=== PATIENT | male | born 1955 | race African-American/Black ===

== ENCOUNTER 2022-08-27 07:13 | Observation (INO) ==
--- NOTE | 2022-08-20 14:21 | History & Physical Report ---
Date of Service August 20, 2022 Assessment & Plan (1) Osteoarthritis of right hip: Plan: PRE-OP Diagnosis: Right hip osteoarthritis Planned Procedure: Right total hip arthroplasty Plan: Patient is scheduled to undergo this procedure at the [facility] with a 23-hour observation admission with Dr. Arora on August. Risks and complications of the procedure such as: Infection, bleeding, pain, scarring, nerve blood vessel damage, weakness, wound problems, stiffness, incomplete relief of symptoms, hardware failure, hardware loosening, wear, fracture, tendon or ligament injury, dislocation, leg length inequality, blood clots, Embolism, heart attack, stroke and were explained to the patient at his visit today. Informed consent to perform the procedure was obtained. Patient also understands risks of proceeding with surgical intervention during the COVID-19 pandemic. Currently he is asymptomatic and understands that he has not been in contact with anyone positive for the virus recently. Patient did not have a PAT appointment. Apparently the medical staff at the alf was contacted and they performed a CBC with differential, complete metabolic panel, PT/INR, blood type and screen, urinalysis, urine culture and sensitivity, EKG, and a nasal culture for MRSA. Patient will also need preoperative medical clearance from their PCP at the institution. Patient states that he plans on doing inpatient therapy at [facility] for the first 1 to 2 weeks postoperatively. Patient states that there is a possibility that he may be able to do outpatient physical therapy in our clinic. Patient will need a walker, raised toilet seat, shower chair and a hip kit. By [facility]. During today's visit we reviewed the total hip packet as well as precautions. We discussed discharge planning from the hospital. I advised the patient that upon discharge from hospital we will prescribe a narcotic pain medication and anti-inflammatory. Patient will also be on an 81 mg aspirin twice daily for blood clot prevention. Patient will be scheduled for 2-week postoperative follow-up visit with he states that these will be provided. At that visit we will Provide the patient with an order for outpatient physical therapy and rehab protocol. Patient verbalizes understanding of all information provided during today's visit. He thanks for the care that he received. If he has questions or concerns that should arise prior to his surgery, he will have medical staff at [facility] contact our clinic. This chart was completed utilizing dragon dictation voice recognition software. Grammatical errors, random word insertions, pronoun errors, and in complete sentences are an occasional consequence of the system. Any questions or concerns about the content, text, or information contained within the body of this dictation should be addressed directly to the physician for clarification. History of Present Illness Chief Complaint: Chief Complaint: Right hip pain Primary Care Provider: [facility] History of Present Illness (including history relevant to procedure): This 67-year-old male inmate at [facility] presents to the clinic today for his preoperative history and physical. Patient complains of a 4-year history of persistent right hip pain that developed after playing basketball. Patient states that he did physical therapy which did not improve his symptoms. He noticed over the past year or so that he is walking slower and is no longer able to play any type of sporting activities. He would like to proceed with surgical intervention for a right total hip arthroplasty. Review Of Systems: A 12 point review of systems is performed and is unremarkable except for those things stated in the HPI and past medical history. Past Medical History: Problems: Right hip pain History of prostate cancer Procedure History Procedure Procedure Date Comments General surgery - foot bone spur Cancer General surgery - kidney stones Allergies and Sensitivities: NKA Current Home Meds: (Last Updated 08/18 14:22) brimonidine ophthalmic (Alphagan P 0.1% ophthalmic solution) dorzolamide-timolol ophthalmic (dorzolamide-timolol 2%-0.5% preservative-free ophthalmic solution) ibuprofen (IBU 600 mg oral tablet) latanoprost ophthalmic (latanoprost 0.005% ophthalmic emulsion) Store intact bottles under refrigeration. Once opened, the container may be stored at room temperature for 6 weeks. - N Arnie 05/22 13:42 Initial Wt: 08/18 89.8 kg 198 lb Allergies Allergy/AdvReac Type Severity Reaction Status Date / Time No Known Allergies Allergy Verified 08/19/22 13:49 Home Medications Medication Instructions Recorded Confirmed Type brimonidine 0.1 % eye drops 1 drp ophthalmic (eye) BID 08/19/22 08/19/22 History (Alphagan P) dorzolamide 22.3 mg-timolol 6.8 1 drp ophthalmic (eye) BID 08/19/22 08/19/22 History mg/mL eye drops (Cosopt) ibuprofen 600 mg tablet 600 mg PO TID 08/19/22 08/19/22 History latanoprost 0.005 % eye drops 1 drp ophthalmic (eye) DAILY 08/19/22 08/19/22 History Past Med/Surg History Medical History Arthritis Constipation Eczema Glaucoma (increased eye pressure) HCV (hepatitis C virus) Inguinal hernia Prostate cancer no other details listed Surgical History No history of previous surgery none listed on SCI record Social History Smoking Status: Unknown if ever smoked Preferred Language: Unknown Web Analytics Developer Required: No Beliefs That Will Affect Care: Cultural Cultural Beliefs: unknown Review of Systems All systems reviewed & are unremarkable except as noted in Subjective Physical Exam Physical Exam: Physical Exam: (relevant to the procedure, including heart and lung evaluation) General: Alert and oriented x3 with proper grooming and hygiene Eyes: Pupils are equal react light with accommodation. Extraocular movements are intact Throat: Posterior oropharynx clear with absence of edema, erythema or exudate Cardiac: Regular rate and rhythm with no murmurs or gallops appreciated Lungs: Clear to auscultation throughout with no wheezing, rales or rhonchi Abdomen: Nonobese, nondistended, nontender with NABS Extremities: Right hip flexion is limited to about 85 degrees. Internal rotation 0 degrees external rotation 40 degrees. Logroll test causes pain. Straight leg raise test causes pain to the groin. Patient has tenderness to palpation in the groin area. He has pain with active AB and adduction of the hip. He is neurovascular intact. Neuro: Cranial nerves II through XII are intact. No motor or sensory deficit Skin: Normal in appearance with no open skin areas or discharge Results & Data Diagnostic Findings Studies (relevant to the procedure): XR done today, AP pelvis and 2 views of right hip: official read by Dr. Arora: severe osteoarthritis of right hip with large subchondral cysts and erosion of the acetabulum. R leg shorter than left.
--- NOTE | 2022-08-25 10:31 | Anesthesiology Consultation ---
Date of Service August 25, 2022 Assessment & Plan (1) Encounter for pre-operative examination: Plan - COVID screening: Per director of occupational therapy on 08/19/2022: Inmate at [facility]. Guo ordered for am DOS. - Outpatient joint assessment: Patient is currently scheduled for inpatient pathway. If re-evaluated pending system levels during current pandemic/surgeon requests outpatient pathway, patient is not recommended candidate for outpatient joint program from anesthesia standpoint. Chart Review Chart Review: Acceptable Risk for Surgery and Patient NOT seen in Pre Admission Testing History Surgery Operation Date: 08/27/22 09:00 Proposed Procedures p Right Total Hip Arthroplasty - Wally Arora MD Height/Weight Height: 5 ft 9 in Weight: 90.265 kg Allergies Allergy/AdvReac Type Severity Reaction Status Date / Time No Known Allergies Allergy Verified 08/19/22 13:49 Medications Home Medications Medication Instructions Recorded Confirmed Last Taken brimonidine 0.1 % eye drops 1 drp ophthalmic (eye) BID 08/19/22 08/19/22 Unknown (Alphagan P) dorzolamide 22.3 mg-timolol 6.8 1 drp ophthalmic (eye) BID 08/19/22 08/19/22 Unknown mg/mL eye drops (Cosopt) ibuprofen 600 mg tablet 600 mg PO TID 08/19/22 08/19/22 Unknown latanoprost 0.005 % eye drops 1 drp ophthalmic (eye) DAILY 08/19/22 08/19/22 Unknown Past Medical History Medical History Arthritis Constipation Eczema Glaucoma (increased eye pressure) HCV (hepatitis C virus) Inguinal hernia Prostate cancer no other details listed Past Surgical History Surgical History No history of previous surgery none listed on SCI record Social History Smoking Status: Unknown if ever smoked Testing Laboratory Results 08/19/2022 WBC: 4.8 H/H: 14/44 PLATELETS: 243 SODIUM: 141 POTASSIUM: 4 CHLORIDE: 107 CO2: 24 BUN: 21 CREATININE: 1.1 GLUCOSE: 99 Urine culture: #1 K. aerogenes 4+, #2 beta hemolytic streptococcus group G: surgeon's office made aware of abnormal urine culture. Electrocardiogram Date: 08/19/22 NSR, rate 67 bpm Chest X-Ray Date: 08/19/22 No radiographic evidence of acute cardiopulmonary disease
[~2022-08-27 07:13] MED LIST: ACETAMINOPHEN 500 MG TAB PO SCH; BUPIVACAINE 0.5 % 5 MG/1 ML PF 10ML VIAL ONE; CeleBREX 200 MG CAP PO SCH; FAMOTIDINE 20 MG TAB PO SCH; LR 500ML BOLUS, THEN 15ML/HR IV SCH; LR 60ML/HR IV SCH; ROPIVACAINE 0.5% HCL/PF 150 MG, BUPIVACAINE 0.75% MPF 20 ML, EPINEPHrine 0.15 MG, Ketor... INFIL SCH; Scopolamine 1 MG TDSY TD SCH; TRANEXAMIC ACID 1,000 MG **IV Intra-op IV SCH; TRANEXAMIC ACID 1,000 MG **IV Pre-op IV SCH; ceFAZolin 2000MG 2,000 MG/15 ML SYR IV SCH; dexAMETHasone 4 MG TAB PO SCH; traMADol HCL 50 MG TABLET PO SCH
[2022-08-27] MEDS ORDERED: MIDAZOLAM HCL 1 MG/ML 2ML VIAL ONE ×2 (07:39→07:40)
[2022-08-27] MEDS ORDERED: KETAMINE 50 MG/5 ML SYRINGE ONE (07:40)
[2022-08-27] MEDS ORDERED: LIDOCAINE 2% 2 ML VIAL/AMP(20MG/ML) INFIL ONE (08:07)
[2022-08-27] MEDS ORDERED: ONDANSETRON INJ 2 MG/ML 2 ML VIAL ONE (08:07)
[2022-08-27] MEDS ORDERED: PROPOFOL IV EMULSION 10 MG/ML 100 ML VIAL IV ONE (08:07)
[2022-08-27] MEDS ORDERED: GLYCOPYRROLATE 0.2 MG/ML VIAL ONE (08:07)
--- NOTE | 2022-08-27 08:38 | History & Physical Bridge Note ---
Date of Service August 27, 2022 History & Physical Bridge Note I have examined the patient, reviewed the History & Physical and in the interval since the performance of the History & Physical I have noted the following changes of clinical significance: no changes noted
[2022-08-27] MEDS ORDERED: ORTHO JOINT ANESTHETIC ONE (08:53)
[2022-08-27] MEDS ORDERED: fentaNYL citrate PF 100 MCG/2 ML VIAL ONE (09:26)
[2022-08-27] MEDS ORDERED: ROCURONIUM BROMIDE 10 MG/ML 5 ML VIAL IV ONE (09:37)
[2022-08-27] MEDS ORDERED: DEXAMETHASONE SOD INJ 4 MG/ML VIAL ONE (09:37)
[2022-08-27] MEDS ORDERED: PROPOFOL IV EMULSION 10 MG/ML 20 ML VIAL IV ONE (09:37)
[2022-08-27] MEDS ORDERED: ePHEDrine sulfate 50 MG/ML AMP ONE (09:45)
[2022-08-27] MEDS ORDERED: PHENYLEPHRINE HCL 10 MG/ML VIAL ONE (09:45)
[2022-08-27] MEDS ORDERED: SODIUM CHLORIDE 0.9% PF INJ 10 ML VIAL ONE (09:48)
[2022-08-27] MEDS ORDERED: SUGAMMADEX SODIUM 200 MG/2 ML VIAL IV ONE (09:59)
[2022-08-27] MEDS ORDERED: ceFAZolin 2000MG 2,000 MG/15 ML SYR IV ONE (11:00)
[2022-08-27] MEDS ORDERED: ceFAZolin 330 MG/ML 1 GM VIAL ONE (11:06)
--- NOTE | 2022-08-27 11:54 | Operative Report ---
Post Operative Report Pre & Post Diagnosis Operation Date: 08/27/22 08:50 Pre-Op Diagnosis: Right Hip Osteoarthritis Post-Op Diagnosis: Right Hip Osteoarthritis I identified the patient and participated in the time-out.: Yes Procedure Operation Date: 08/27/22 08:50 Actual Procedures p Right Total Hip Arthroplasty-Uncemented - Wally Arora MD Surgeon JAYCEE Arora MD Medical Technologist Generalist Karen Xiao PA-C Estimated Blood Loss 500 Findings Consistent with Post-Op Diagnosis see operative report Specimens see operative report Drains none Complications none Disposition Accompanied Patient To Recovery: Yes Indications This 67 year old male presented to the office with complaints of persisting right hip pain. He had tried conservative care measures without improvement. He elected to proceed with surgical intervention after being educated about potential risks and outcomes. Preoperative imaging was obtained. Description of Procedure The patient was taken to the operating room where he was given general anesthesia. He was prepped and draped in the usual sterile fashion. Please see Dr. Arora's operative report for specifics of the procedure. I was present for the entire case from initial patient positioning through final wound closure. Assistance was provided in tissue retraction, hemostasis, trial implant placement, final implant placement, and final wound closure. The patient was taken to the recovery room in satisfactory condition. I attest to the content of the Intraoperative Record and any orders documented therein. Any exceptions are noted below.
[2022-08-27] MEDS ORDERED: FLUMAZENIL 0.1 MG/1 ML 10 ML VIAL IV PRN (11:59)
[2022-08-27] MEDS ORDERED: LABETALOL HCL IV 5 MG/ML 20ML IV PRN (11:59)
[2022-08-27] MEDS ORDERED: ONDANSETRON INJ 2 MG/ML 2 ML VIAL IV PRN ×2 (11:59→13:12)
[2022-08-27] MEDS ORDERED: fentaNYL citrate PF 100 MCG/2 ML VIAL IV PRN (11:59)
[2022-08-27] MEDS ORDERED: HYDROmorphone INJ 1 MG/ML SYRINGE IV PRN (11:59)
[2022-08-27] MEDS ORDERED: ATROPINE SULFATE 0.1 MG/ML 10ML SYR IV PRN (11:59)
[2022-08-27] MEDS ORDERED: NALOXONE HCL 0.4 MG/1 ML VIAL/CARP IV PRN ×2 (11:59→13:12)
[2022-08-27] MEDS ORDERED: ePHEDrine sulfate 50 MG/ML AMP IV PRN (11:59)
[2022-08-27] MEDS ORDERED: PROMETHAZINE HCL 12.5 MG in SODIUM CHLORIDE 0.9% 50 ML IV PRN (11:59)
--- NOTE | 2022-08-27 12:06 | Operative Report ---
Post Operative Report Pre & Post Diagnosis Operation Date: 08/27/22 08:50 Pre-Op Diagnosis: Right Hip Osteoarthritis with severe acetabular erosion Post-Op Diagnosis: Right Hip Osteoarthritis with severe acetabular erosion I identified the patient and participated in the time-out.: Yes Procedure Operation Date: 08/27/22 08:50 Actual Procedures 1. Right Total Hip Arthroplasty-Uncemented. A 22 modifier should be added to this case due to the increased time and difficulty as a result of the patient's complex anatomy of severe acetabular erosion. 2. Right acetabulum bone grafting - Wally Arora MD Surgeon Wally Arora MD Professor Of Environmental Studies Terry Xiao PA-C. No resident or fellow was available to assist. Estimated Blood Loss 500 Findings Consistent with Post-Op Diagnosis Specimens Right femoral head Anesthesia Type Spinal MAC Complications none Disposition Disposition: Recovery Room Indications 67-year-old male, inmate for over 25 years, has had longstanding right hip pain refractory to conservative management. 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 Severe subchondr al sclerosis as well as subchondral cyst were also noted. I had a long discussion with the patient about the risks and benefits of surgery, alternatives to surgery, and expected outcomes. After reviewing all these elected to proceed with surgery. All questions were answered. Informed consent was signed. Description of Procedure Patient was identified in the preoperative holding area where his surgical site was marked. Anesthesia attempted a spinal but was unable to place this. He was therefore brought back to the main operating room, moved onto the operating room table, and general anesthesia was administered. He was carefully moved in the lateral decubitus position. Axillary roll was placed. All bony prominences were padded. Leg lengths were checked and he was approximately 5 mm shorter on the right compared with the left. He was then prepped and draped in the usual sterile fashion. Prior to incision a multidisciplinary timeout was called. All in the room were in agreement. I began by making a 18 cm long incision for a posterior approach to the hip. Subcutaneous tissues were dissected down to the level of fascia. Fascia was incised in line with the incision. Great care was taken to ensure that the sciatic nerve was identified and the Charnley retractors were placed away from the nerve onto the gluteus cheng. The upper 1 cm of the gluteal sling was released to facilitate visualization. Next, the trochanteric bursa was reflected posteriorly to expose the piriformis, short external rotators and quadratus femoris. Next, a quadratus femoris was reflected subperiosteally off the femur. The piriformis and short external rotators were reflected posteriorly off the capsule. We did get into some bleeding here with the branch of the medial femoral circumflex artery. Aqua Jaqui and Bovie electrocautery were used to obtain hemostasis. A box cut was then made in the capsule and the posterior capsule was reflected posteriorly to expose the hip joint and acetabulum. Because of his abnormal anatomy I was unable to dislocate his hip at this time, as the femoral head was significantly covered by acetabular osteophytes. Therefore, an osteotome was used to remove approximately 5 mm of the acetabular rim posteriorly and superiorly. Superior and inferior capsular releases were also undertaken. Once this was completed I was able to dislocate the hip. We measured the center of the femoral head to the lesser trochanter and it was approximately 50 millimeters. Femoral neck cut was then made at the planned level approximately 10 mm above the lesser trochanter. Femoral head was noted to be severely deformed and was passed off the field and sent for permanent section. Next, the acetabular retractors were placed. He had severe acetabular erosion with multiple subchondral cysts. Additional acetabular rim osteophytes were removed in order to allow the reamers to sit down into the acetabulum. We then began to ream the acetabulum. This was done extremely gently so as to not breach the medial wall of the acetabulum. We went carefully up by 1 mm increments with minimal pressure on the reamers. Our preoperative template was for a 58 mm cup and this reamer gave us nice bleeding bone. Subchondral cysts were curetted with a curved curette. On the back table, bone marrow from the femoral head had been scooped out into a specimen cup. We irrigated out the acetabulum and then placed this bone graft in the medial aspect of the acetabulum because of the x-ray findings of a protrusio type hip. Once the bone graft was in place it was impacted with a spherical impactor. The 58 mm cup was then placed in approximately 40 degrees of lateral opening, and 20 degrees of anteversion. 2 screws were then placed measuring 30 and 20 mm in length respectively. Trial acetabular liner was then placed. Additional acetabular osteophytes were then removed using an osteotome. Next, we turned our attention towards the femur. Our preoperative template was for a size 5 femur. Lateral neck capsule was removed and the cookSelatra cutter was used to remove the lateral neck. Intramedullary guide was used followed by the lateralizing reamer. We then reamed him up to a size 5. I then broached him up to a size 5 femur. This gave us excellent torsional stability. We then attempted to reduce the hip. With a standard offset neck, and +1.5 offset femoral head we were unable to reduce the hip. I could feel his capsule which remained tight inferiorly and anteriorly. Therefore, the femoral broach was removed, the acetabulum was reexposed, and additional capsular releases were undertaken inferiorly and anteriorly. Once this was complete the femur was reexposed. The size 5 broach was placed, and the +1.5 head was retrialed. It was a little bit difficult to reduce the hip but we are able to get it reduced. I was very happy with his leg lengths which were symmetric. He was stable in extension and external rotation. hip flexion was easily to 115 degrees. At 90 degrees of hip flexion he could be internally rotated 60 degrees before levering out of the cup. I was very happy with the stability exam. Therefore, the femoral trial was removed. The acetabulum was reexposed. Trial acetabular liner was removed and the cup was irrigated out. An apex hole eliminator was placed in the central hole. A Ultrex polyethylene liner for 36 mm femoral head, neutral was then placed. After being impacted into position we checked the locking Mazyck and is a minute had engaged appropriately. Next we turned our attention back to the femur. The femoral canal was irrigated out and dried. A size 5 standard offset [place] stem was then impacted into the femur. It sat at the same level as the broach. Therefore, the +1.5 offset 36 mm diameter ceramic femoral head was opened up and gently impacted onto the trunnion. The hip was atraumatically reduced. dilute Betadine irrigation was allowed to sit in the wound for approximately 3 minutes. This was then irrigated out with copious amounts normal saline. A mixture of ropivacaine, epinephrine, and ketorolac was then injected into the subcutaneous tissues and deep hip capsular tissues, taking great care to try to keep the medicine away from the nerve. we then began to close. Number 2 Vicryl sutures were used to repair the posterior capsule through drill holes in the posterior aspect the greater trochanter. I felt that there was too much tension on the piriformis and short external rotators so these were not included in the repair. The fascia was then run with a looped #1 PDS. Subcutaneous layer was closed with running #1 PDS. Skin was closed in the deep dermis using a 2-0 Vicryl suture. Zip line and Dermabond was used for the skin. Sterile dressing was applied of Silverlon followed by compressive dressing. Patient was then carefully moved supine, awoken from anesthesia and transferred recovery room in stable condition. Postoperative course: Patient will be admitted to the hospital overnight for pain control and monitoring. He will be weightbearing as tolerated with posterior hip precautions. Aspirin for DVT prophylaxis. I attest to the content of the Intraoperative Record and any orders documented therein. Any exceptions are noted below.
[2022-08-27 12:38] LABS: Hematocrit (blood only) 35.3 % (42.0-52.0); Hemoglobin 12.8 g/dl (14.0-18.0)
--- NOTE | 2022-08-27 12:40 | XRay Report ---
XR pelvis 1-2V routine CLINICAL HISTORY: In PACU - Post Surgical TECHNIQUE: A single frontal view of the pelvis was obtained. Comparison: Comparison is made to pelvis radiograph 08/18/2022 FINDINGS: Patient is status post total hip arthroplasty with expected postsurgical changes including soft tissu e swelling, and subcutaneous emphysema. No periarticular lucency or hardware fracture is seen. IMPRESSION: Expected postoperative appearance status post placement of total hip arthroplasty. ACT 112: Negative or not required by law. Electronically signed by: Benitez Dennison M.D. 08/27/2022 12:38 PM
--- NOTE | 2022-08-27 12:49 | Anesthesiology Progress Note ---
Date of Service August 27, 2022 Anesthesia Post Procedure Vital Signs Vital Signs: Temp Pulse Pulse Resp BP Pulse Ox O2 Del Method 08/27/22 12:40 36.3 C L 65 14 123/77 100 Room Air 08/27/22 12:30 68 14 112/68 100 Room Air 08/27/22 12:20 68 14 98/63 L 98 Oxymask 08/27/22 12:10 65 18 90/65 L 100 Oxymask 08/27/22 12:00 71 16 102/74 100 Oxymask 08/27/22 11:50 36.0 C L 68 20 110/72 100 Oxymask 08/27/22 07:45 Room Air 08/27/22 07:45 36.6 C 66 18 133/96 99 Room Air O2 Flow Rate 08/27/22 12:40 08/27/22 12:30 08/27/22 12:20 4 08/27/22 12:10 4 08/27/22 12:00 4 08/27/22 11:50 4 08/27/22 07:45 08/27/22 07:45 Pain Intensity Right Hip: Pain Intensity: 7 Transfer of Care Handoff Completed per policy Notes Mental Status: alert / awake / arousable Patient Amnestic to Procedure: Yes Nausea / Vomiting: adequately controlled Pain: adequately controlled Airway Patency, RR, SpO2: stable & adequate BP & HR: stable & adequate Hydration State: stable & adequate Anesthetic Complications: no major complications apparent
[2022-08-27] MEDS ORDERED: MAGNESIUM HYDROXIDE SUSP 30 ML UDC PO PRN (13:12)
[2022-08-27] MEDS ORDERED: diphenhydrAMINE 50 MG/ML VIAL IV PRN (13:12)
[2022-08-27] MEDS ORDERED: METOCLOPRAMIDE HCL INJ 5 MG/ML 2 ML VIAL IV PRN (13:12)
[2022-08-27] MEDS ORDERED: HYDROmorphone INJ 0.5 MG/0.5 ML SYR IV PRN (13:12)
[2022-08-27] MEDS ORDERED: TAMSULOSIN HCL 0.4 MG CAP PO PRN (13:12)
[2022-08-27] MEDS ORDERED: bisacodyL 10 MG SUPP PR PRN (13:12)
[2022-08-27] MEDS ORDERED: oxyCODONE HCL IR 5 MG TAB (IMMEDIATE RELEASE) PO PRN (13:12)
[2022-08-27] MEDS ORDERED: ALUMINUM/MAGNESIUM SUSP 30 ML UDC PO PRN (13:12)
[2022-08-27] MEDS: SODIUM CHLORIDE 0.9% 1000ML 1,000 ML IV SCH (13:57)
[2022-08-27] MEDS: KETOROLAC TROMETHAMINE 15 MG/ML VIAL IV SCH ×2 (13:58→21:42)
[2022-08-27] MEDS: Scopolamine CHECK PATCH PLACEMENT SCH (15:34)
[2022-08-27] MEDS: ASCORBIC ACID 500 MG TAB PO SCH (16:27)
[2022-08-27] MEDS: FERROUS GLUCONATE 324 MG TAB PO SCH (16:27)
[2022-08-27] MEDS: ceFAZolin 2000MG 2,000 MG/15 ML SYR IV SCH (17:46)
[2022-08-27] MEDS ORDERED: SENNA 8.6 MG TAB PO SCH (21:00)
[2022-08-27] MEDS ORDERED: BRIMONIDINE 0.1% OP SCH (21:00)
[2022-08-27] MEDS ORDERED: LATANOPROST 0.005% OP SOLN 2.5 ML BTL OP SCH (21:00)
[2022-08-27] MEDS: DORZOLAMIDE/TIMOLOL 22.3/6.8MG/ML 10 ML BTL OP SCH (21:42)
[2022-08-27] MEDS: DOCUSATE SODIUM 100 MG CAP PO SCH (21:43)
[2022-08-27] MEDS: ACETAMINOPHEN 500 MG TAB PO SCH (21:43)
[2022-08-27] MEDS: ASPIRIN 81 MG ECTAB PO SCH (21:44)
[2022-08-28] MEDS: Scopolamine CHECK PATCH PLACEMENT SCH ×2 (00:11→08:04)
[2022-08-28] MEDS: KETOROLAC TROMETHAMINE 15 MG/ML VIAL IV SCH ×2 (02:29→08:03)
[2022-08-28] MEDS: ceFAZolin 2000MG 2,000 MG/15 ML SYR IV SCH (02:29)
[2022-08-28] MEDS: SODIUM CHLORIDE 0.9% 1000ML 1,000 ML IV SCH (05:49)
[2022-08-28] MEDS: ACETAMINOPHEN 500 MG TAB PO SCH (05:55)
[2022-08-28 07:59] LABS: Hematocrit (blood only) 34.9 % (42.0-52.0); Mean Corpuscular Hemoglobin 32.7 pg (25.0-34.0); Mean Corpuscular Hgb Conc 37.2 g/dL (32.0-36.0); Mean Corpuscular Volume 87.7 fL (80.0-100.0); Mean Platelet Volume 10.3 fL (9.4-12.4); Platelet Count 249 K/uL (130-400); RDW Coefficient of Variation 11.9 % (11.5-14.5); RDW Standard Deviation 38.2 fL (36.4-46.3); Red Blood Count 3.98 M/uL (4.70-6.10)
[2022-08-28] MEDS ORDERED: dexAMETHasone 4 MG TAB PO SCH (08:00)
[2022-08-28] MEDS: ASCORBIC ACID 500 MG TAB PO SCH (08:02)
[2022-08-28] MEDS: FERROUS GLUCONATE 324 MG TAB PO SCH (08:03)
[2022-08-28] MEDS: DOCUSATE SODIUM 100 MG CAP PO SCH (08:04)
[2022-08-28] MEDS: DORZOLAMIDE/TIMOLOL 22.3/6.8MG/ML 10 ML BTL OP SCH (08:04)
[2022-08-28] MEDS: ASPIRIN 81 MG ECTAB PO SCH (08:04)
[2022-08-28 08:13] LABS: BUN Creatinine Ratio 20.2 (10-20); Calcium 9.2 mg/dl (8.6-10.3); Creatinine Clr Calc Pharmacy 66.8 ml/min; Est GFR (African American) 72.3 ml/min; Est GFR (Non-African American) 62.4 ml/min; Potassium 4.3 mmol/L (3.5-5.1)
[2022-08-28 08:44] LABS: Basophils # (auto) 0.02 K/uL (0-0.2); Basophils % (auto) 0.1 %; Immature Granulocytes # (auto) 0.49 K/uL (0.01-0.20); Immature Granulocytes % (auto) 2.6 %; Lymphocytes # (auto) 1.73 K/uL (1.2-3.4); Lymphocytes % (auto) 9.3 %; Monocytes # (auto) 1.93 K/uL (0.11-0.59); Monocytes % (auto) 10.3 %; Neutrophils # (auto) 14.51 K/uL (1.40-6.50); Neutrophils % (auto) 77.7 %
[2022-08-28] MEDS ORDERED: MULTIVITAMIN TAB PO SCH (09:00)
--- NOTE | 2022-08-28 09:01 | Orthopedic Progress Note ---
Date of Service August 28, 2022 Assessment & Plan (1) S/P total right hip arthroplasty: Plan: Patient is doing well status post right total hip arthroplasty postop day 1. Patient is not having any pain at this time he has not been given narcotics and is doing well. At this time I am recommending patient transition back [facility]. He is aware of maintaining hip precautions and is able to verbalize these, no bending past 90 degrees, no internal rotation, and no crossing legs. He is aware this is to help prevent hip dislocation. He has a hip abduction pillow that must be used between legs when sleeping. He was advised as well as the halfway on these hip precautions. He was provided a order for a rolling walker to use with ambulating. He was shown exercises to do by physical therapy he should do these daily and if physical therapy is available to participate in therapy while maintaining hip precautions. An order was also provided for a raised toilet seat to help maintain hip precautions. Patient is not permitted to have a slaughterer religious ritual in halfway due to safety concerns. I did advise Edyta at [facility] that he will need assistance with applying NARCISA hose, socks or sneakers and with dressing. Patient's pain is controlled advised Edyta at [facility] to continue with Tylenol and we recommend using diclofenac 75 mg twice daily x30 days for pain as well as to prevent hypertrophic bone formation. Patient will be on an aspirin 81 mg twice daily x30 days for DVT prophylaxis. He is also to wear NARCISA hose for 4 weeks. He may take the NARCISA hose off at night to sleep. His dressing is clean and should stay in place if it starts to lift they can reinforce this. If it becomes soiled they should call the office at [phone]. This should stay in place until he is seen. He may shower not to soak the dressing but may get it wet. Caution while in shower to prevent fall. He will need to to return to the office for suture removal instructions were [facility] to [facility]. They will call to get the appointment scheduled. If any concerns such as fever, chills, night sweats, drainage or redness from the incision site or surrounding or any falls they are to contact the office at [phone]. Patient is not aware of a follow-up appointment he is aware that they will call to arrange something in the near future. Admission and Anticipated Discharge Date Admission Date: August 27, 2022 Subjective Patient is a 67-year-old male who is postop day #1 status post a right total hip arthroplasty with Dr. Conroy. He is seen in his room this morning approximately 830 OT and 2 halfway guards were present. He is sitting upright in bedside chair. He is pleasant and conversive. He is alert and oriented x3. He reports he did well throughout the night and has no pain. He states he feels pretty good. He is able to verbalize his hip precautions. He offers no concerns about being transition [facility]. He denies any fever, chills, chest pain, dizziness, shortness of breath, or calf pain. Review of Systems Review of Systems: Please refer to HPI Physical Exam Physical Exam: General: Patient is sitting in bedside chair alert and oriented x3 no acute distress conversive. Integumentary/musculoskeletal: Dressing is intact negative for soiling. Outer dressing was removed. Silver[place] is in place no soiling present negative for edema or erythema surrounding this area. No fluctuance or induration present surrounding the incision or dressing. He has very little to no edema in the right lower extremity. Patient is able to tolerate standing at walker and is able to lift knee on the right side for hip flexion without discomfort. Patient returned to seated position. He is able to do a short arc quad. He is able to dorsiflex and plantarflex the ankle. His calf is soft and nontender. Negative Homans' sign. Dorsal pedis pulses 2. And he tolerates gentle internal and external range of motion of the right hip.Right lower extremity sensation is intact and is neurovascularly intact Results & Data Vital Signs (Past 12 Hours) Vital Signs Temp Pulse Resp BP Pulse Ox O2 Del Method 08/28/22 06:45 36.8 C 71 16 134/85 98 Room Air 08/28/22 03:36 36.6 C 68 16 121/74 98 Room Air 08/27/22 23:01 36.9 C 75 16 125/79 100 Room Air Laboratory Results 08/28/22 08/28/22 08/27/22 Range/Units 07:12 07:12 15:25 WBC 18.50 H (4.8-10.8) K/ul RBC 3.98 L (4.70-6.10) M/uL Hgb 13.0 L (14.0-18.0) g/dl Hct 34.9 L (42.0-52.0) % MCV 87.7 (80.0-100.0) fL MCH 32.7 (25.0-34.0) pg MCHC 37.2 H (32.0-36.0) g/dL RDW Std Deviation 38.2 (36.4-46.3) fL RDW Coeff of Pablo 11.9 (11.5-14.5) % Plt Count 249 (130-400) K/uL MPV 10.3 (9.4-12.4) fL Immature Gran % (Auto) 2.6 % Neut % (Auto) 77.7 % Lymph % (Auto) 9.3 % Pe[place]uel[place] % (Auto) 10.3 % Eos % (Auto) 0.0 % Baso % (Auto) 0.1 % Neut # (Auto) 14.51 H (1.40-6.50) K/uL Lymph # (Auto) 1.73 (1.2-3.4) K/uL Peñuelas # (Auto) 1.93 H (0.11-0.59) K/uL Eos # (Auto) 0.00 (0-0.50) K/uL Baso # (Auto) 0.02 (0-0.2) K/uL Immature Gran # (Auto) 0.49 H (0.01-0.20) K/uL Sodium 134 L (136-145) mmol/L Potassium 4.3 (3.5-5.1) mmol/L Chloride 105 (98-107) mmol/L Carbon Dioxide 24 (21-32) mmol/L Anion Gap 5 (3-11) BUN 24 H (6-23) mg/dl Creatinine 1.19 (0.6-1.4) mg/dl Est Cr Clr Drug Dosing 66.8 ml/min Est GFR ( Amer) 72.3 ml/min Est GFR (Non-Af Amer) 62.4 ml/min BUN/Creatinine Ratio 20.2 H (10-20) Glucose 121 H (70-99(Fasting)) mg/dl Calcium 9.2 (8.6-10.3) mg/dl Nasal Screen MRSA (PCR) Negative (Negative) 08/27/22 Range/Units 12:07 WBC (4.8-10.8) K/ul RBC (4.70-6.10) M/uL Hgb 12.8 L (14.0-18.0) g/dl Hct 35.3 L (42.0-52.0) % MCV (80.0-100.0) fL MCH (25.0-34.0) pg MCHC (32.0-36.0) g/dL RDW Std Deviation (36.4-46.3) fL RDW Coeff of Pablo (11.5-14.5) % Plt Count (130-400) K/uL MPV (9.4-12.4) fL Immature Gran % (Auto) % Neut % (Auto) % Lymph % (Auto) % [place] % (Auto) % Eos % (Auto) % Baso % (Auto) % Neut # (Auto) (1.40-6.50) K/uL Lymph # (Auto) (1.2-3.4) K/uL [place]uel[place] # (Auto) (0.11-0.59) K/uL Eos # (Auto) (0-0.50) K/uL Baso # (Auto) (0-0.2) K/uL Immature Gran # (Auto) (0.01-0.20) K/uL Sodium (136-145) mmol/L Potassium (3.5-5.1) mmol/L Chloride (98-107) mmol/L Carbon Dioxide (21-32) mmol/L Anion Gap (3-11) BUN (6-23) mg/dl Creatinine (0.6-1.4) mg/dl Est Cr Clr Drug Dosing ml/min Est GFR ( Amer) ml/min Est GFR (Non-Af Amer) ml/min BUN/Creatinine Ratio (10-20) Glucose (70-99(Fasting)) mg/dl Calcium (8.6-10.3) mg/dl Nasal Screen MRSA (PCR) (Negative) Diagnostic Findings Pelvis X-Ray 08/27/22 12:00 XR pelvis 1-2V routine CLINICAL HISTORY: In PACU - Post Surgical TECHNIQUE: A single frontal view of the pelvis was obtained. Comparison: Comparison is made to pelvis radiograph 08/18/2022 FINDINGS: Patient is status post total hip arthroplasty with expected postsurgical changes including soft tissue swelling, and subcutaneous emphysema. No periarticular lucency or hardware fracture is seen. IMPRESSION: Expected postoperative appearance status post placement of total hip arthroplasty. ACT 112: Negative or not required by law. Electronically signed by: Benitez Dennison M.D. 08/27/2022 12:38 PM
--- NOTE | 2022-08-28 09:16 | Discharge Summary ---
Date of Service August 28, 2022 Admission HPI Per Admitting Provider History of Present Illness (including history relevant to procedure): This 67-year-old male inmate at [facility] presents to the clinic today for his preoperative history and physical. Patient complains of a 4-year history of persistent right hip pain that developed after playing basketball. Patient states that he did physical therapy which did not improve his symptoms. He noticed over the past year or so that he is walking slower and is no longer able to play any type of sporting activities. He would like to proceed with surgical intervention for a right total hip arthroplasty. Review Of Systems: A 12 point review of systems is performed and is unremarkable except for those things stated in the HPI and past medical history. Past Medical History: Problems: Right hip pain History of prostate cancer Procedure History Procedure Procedure Date Comments General surgery - foot bone spur Cancer General surgery - kidney stones Allergies and Sensitivities: NKA Current Home Meds: (Last Updated 08/18 14:22) brimonidine ophthalmic (Alphagan P 0.1% ophthalmic solution) dorzolamide-timolol ophthalmic (dorzolamide-timolol 2%-0.5% preservative-free ophthalmic solution) ibuprofen (IBU 600 mg oral tablet) latanoprost ophthalmic (latanoprost 0.005% ophthalmic emulsion) Store intact bottles under refrigeration. Once opened, the container may be stored at room temperature for 6 weeks. - N Arnie 05/22 13:42 Initial Wt: 08/18 89.8 kg 198 lb Allergies Allergy/AdvReac Type Severity Reaction Status Date / Time No Known Allergies Allergy Verified 08/19/22 13:49 Home Medications Medication Instructions Recorded Confirmed Type brimonidine 0.1 % eye drops 1 drp ophthalmic (eye) BID 08/19/22 08/19/22 History (Alphagan P) dorzolamide 22.3 mg-timolol 6.8 1 drp ophthalmic (eye) BID 08/19/22 08/19/22 History mg/mL eye drops (Cosopt) ibuprofen 600 mg tablet 600 mg PO TID 08/19/22 08/19/22 History latanoprost 0.005 % eye drops 1 drp ophthalmic (eye) DAILY 08/19/22 08/19/22 History Past Med/Surg History Medical History Arthritis Constipation Eczema Glaucoma (increased eye pressure) HCV (hepatitis C virus) Inguinal hernia Prostate cancer no other details listed Surgical History No history of previous surgery none listed on SCI record Social History Smoking Status: Unknown if ever smoked Preferred Language: Unknown Zipper Cutter Required: No Beliefs That Will Affect Care: Cultural Cultural Beliefs: unknown Review of Systems All systems reviewed & are unremarkable except as noted in Subjective Physical Exam Physical Exam: Physical Exam: (relevant to the procedure, including heart and lung evaluation) General: Alert and oriented x3 with proper grooming and hygiene Eyes: Pupils are equal react light with accommodation. Extraocular movements are intact Throat: Posterior oropharynx clear with absence of edema, erythema or exudate Cardiac: Regular rate and rhythm with no murmurs or gallops appreciated Lungs: Clear to auscultation throughout with no wheezing, rales or rhonchi Abdomen: Nonobese, nondistended, nontender with NABS Extremities: Right hip flexion is limited to about 85 degrees. Internal rotation 0 degrees external rotation 40 degrees. Logroll test causes pain. Straight leg raise test causes pain to the groin. Patient has tenderness to palpation in the groin area. He has pain with active AB and adduction of the hi p. He is neurovascular intact. Neuro: Cranial nerves II through XII are intact. No motor or sensory deficit Skin: Normal in appearance with no open skin areas or discharge Results & Data Diagnostic Findings Studies (relevant to the procedure): XR done today, AP pelvis and 2 views of right hip: official read by Dr. Arora: severe osteoarthritis of right hip with large subchondral cysts and erosion of the acetabulum. R leg shorter than left. Admission Exam (Per Admitting) Constitutional Physical Exam Physical Exam: Physical Exam: (relevant to the procedure, including heart and lung evaluation) General: Alert and oriented x3 with proper grooming and hygiene Eyes: Pupils are equal react light with accommodation. Extraocular movements are intact Throat: Posterior oropharynx clear with absence of edema, erythema or exudate Cardiac: Regular rate and rhythm with no murmurs or gallops appreciated Lungs: Clear to auscultation throughout with no wheezing, rales or rhonchi Abdomen: Nonobese, nondistended, nontender with NABS Extremities: Right hip flexion is limited to about 85 degrees. Internal rotation 0 degrees external rotation 40 degrees. Logroll test causes pain. Straight leg raise test causes pain to the groin. Patient has tenderness to palpation in the groin area. He has pain with active AB and adduction of the hip. He is neurovascular intact. Neuro: Cranial nerves II through XII are intact. No motor or sensory deficit Skin: Normal in appearance with no open skin areas or discharge Specialty Data Orthopedic 08/28/22 08/28/22 08/27/22 Range/Units 07:12 07:12 15:25 WBC 18.50 H (4.8-10.8) K/ul RBC 3.98 L (4.70-6.10) M/uL Hgb 13.0 L (14.0-18.0) g/dl Hct 34.9 L (42.0-52.0) % MCV 87.7 (80.0-100.0) fL MCH 32.7 (25.0-34.0) pg MCHC 37.2 H (32.0-36.0) g/dL RDW Std Deviation 38.2 (36.4-46.3) fL RDW Coeff of Pablo 11.9 (11.5-14.5) % Plt Count 249 (130-400) K/uL MPV 10.3 (9.4-12.4) fL Immature Gran % (Auto) 2.6 % Neut % (Auto) 77.7 % Lymph % (Auto) 9.3 % Scott % (Auto) 10.3 % Eos % (Auto) 0.0 % Baso % (Auto) 0.1 % Neut # (Auto) 14.51 H (1.40-6.50) K/uL Lymph # (Auto) 1.73 (1.2-3.4) K/uL Scott # (Auto) 1.93 H (0.11-0.59) K/uL Eos # (Auto) 0.00 (0-0.50) K/uL Baso # (Auto) 0.02 (0-0.2) K/uL Immature Gran # (Auto) 0.49 H (0.01-0.20) K/uL Sodium 134 L (136-145) mmol/L Potassium 4.3 (3.5-5.1) mmol/L Chloride 105 (98-107) mmol/L Carbon Dioxide 24 (21-32) mmol/L Anion Gap 5 (3-11) BUN 24 H (6-23) mg/dl Creatinine 1.19 (0.6-1.4) mg/dl Est Cr Clr Drug Dosing 66.8 ml/min Est GFR ( Amer) 72.3 ml/min Est GFR (Non-Af Amer) 62.4 ml/min BUN/Creatinine Ratio 20.2 H (10-20) Glucose 121 H (70-99(Fasting)) mg/dl Calcium 9.2 (8.6-10.3) mg/dl Nasal Screen MRSA (PCR) Negative (Negative) 08/27/22 Range/Units 12:07 WBC (4.8-10.8) K/ul RBC (4.70-6.10) M/uL Hgb 12.8 L (14.0-18.0) g/dl Hct 35.3 L (42.0-52.0) % MCV (80.0-100.0) fL MCH (25.0-34.0) pg MCHC (32.0-36.0) g/dL RDW Std Deviation (36.4-46.3) fL RDW Coeff of Pablo (11.5-14.5) % Plt Count (130-400) K/uL MPV (9.4-12.4) fL Immature Gran % (Auto) % Neut % (Auto) % Lymph % (Auto) % Scott % (Auto) % Eos % (Auto) % Baso % (Auto) % Neut # (Auto) (1.40-6.50) K/uL Lymph # (Auto) (1.2-3.4) K/uL Scott # (Auto) (0.11-0.59) K/uL Eos # (Auto) (0-0.50) K/uL Baso # (Auto) (0-0.2) K/uL Immature Gran # (Auto) (0.01-0.20) K/uL Sodium (136-145) mmol/L Potassium (3.5-5.1) mmol/L Chloride (98-107) mmol/L Carbon Dioxide (21-32) mmol/L Anion Gap (3-11) BUN (6-23) mg/dl Creatinine (0.6-1.4) mg/dl Est Cr Clr Drug Dosing ml/min Est GFR ( Amer) ml/min Est GFR (Non-Af Amer) ml/min BUN/Creatinine Ratio (10-20) Glucose (70-99(Fasting)) mg/dl Calcium (8.6-10.3) mg/dl Nasal Screen MRSA (PCR) (Negative) Pelvis X-Ray 08/27/22 12:00 XR pelvis 1-2V routine CLINICAL HISTORY: In PACU - Post Surgical TECHNIQUE: A single frontal view of the pelvis was obtained. Comparison: Comparison is made to pelvis radiograph 08/18/2022 FINDINGS: Patient is status post total hip arthroplasty with expected postsurgical changes including soft tissue swelling, and subcutaneous emphysema. No periarticular lucency or hardware fracture is seen. IMPRESSION: Expected postoperative appearance status post placement of total hip arthroplasty. ACT 112: Negative or not required by law. Electronically signed by: Benitez Dennison M.D. 08/27/2022 12:38 PM Current Inpatient Medications Acetaminophen (Acetaminophen 500 Mg Tab) 1,000 mg PO Q8 MARJORIE Stop: 09/26/22 21:59 Last Admin: 08/28/22 05:55 Dose: 1,000 mg Al Hydrox/Mg Hydrox/Simethicone (Aluminum/Magnesium Susp 30 Ml Udc) 15 ml PO Q4H PRN PRN Reason: Heartburn Stop: 09/26/22 13:11 Ascorbic Acid (Ascorbic Acid 500 Mg Tab) 500 mg PO BIDM MARJORIE Stop: 09/26/22 16:59 Last Admin: 08/28/22 08:02 Dose: 500 mg Aspirin (Aspirin 81 Mg Ectab) 81 mg PO BID MARJORIE Stop: 09/26/22 20:59 Last Admin: 08/28/22 08:04 Dose: 81 mg Bisacodyl (Bisacodyl 10 Mg Supp) 10 mg NM DAILY PRN PRN Reason: Constipation Stop: 09/26/22 13:11 Diphenhydramine HCl (Diphenhydramine 50 Mg/Ml Vial) 25 mg IV Q8H PRN PRN Reason: Itching Stop: 09/26/22 13:11 Docusate Sodium (Docusate Sodium 100 Mg Cap) 100 mg PO BID MARJORIE Stop: 09/26/22 20:59 Last Admin: 08/28/22 08:04 Dose: 100 mg Dorzolamide/Timolol (Dorzolamide/Timolol 22.3/6.8mg/Ml 10 Ml Btl) 1 drops OP BID MARJORIE Stop: 09/26/22 20:59 Last Admin: 08/28/22 08:04 Dose: 1 drops Ferrous Gluconate (Ferrous Gluconate 324 Mg Tab) 324 mg PO BIDM MARJORIE Stop: 09/26/22 16:59 Last Admin: 08/28/22 08:03 Dose: 324 mg Hydromorphone HCl (Hydromorphone Inj 0.5 Mg/0.5 Ml Syr) 0.5 mg IV Q2H PRN PRN Reason: Pain or Pre PT Stop: 09/10/22 13:11 Latanoprost (Latanoprost 0.005% Op Soln 2.5 Ml Btl) 1 drops OP HS MARJORIE Stop: 09/26/22 20:59 Last Admin: 08/27/22 22:32 Dose: 1 drops Magnesium Hydroxide (Magnesium Hydroxide Susp 30 Ml Udc) 30 ml PO Q6H PRN PRN Reason: Constipation Stop: 09/26/22 13:11 Metoclopramide HCl (Metoclopramide Hcl Inj 5 Mg/Ml 2 Ml Vial) 10 mg IV Q6H PRN PRN Reason: Nausea And Vomiting Stop: 09/26/22 13:11 Miscellaneous (Scopolamine Check Patch Placement) 1 each N/A QS MARJORIE Stop: 08/30/22 07:59 Last Admin: 08/28/22 08:04 Dose: Not Given Miscellaneous (Scopolamine Remove Transderm Patch) 1 each N/A ONE ONE Stop: 08/30/22 08:01 Miscellaneous (Brimonidine [Alphagan P] 0.1%: Order Awaiting Action) 1 each N/A QS MARJORIE Stop: 09/26/22 15:59 Last Admin: 08/28/22 08:02 Dose: Not Given Multivitamins (Multivitamin Tab) 1 tab PO QAM MARJORIE Stop: 09/27/22 08:59 Last Admin: 08/28/22 08:04 Dose: 1 tab Naloxone HCl (Naloxone Hcl 0.4 Mg/1 Ml Vial/Carp) 0.1 mg IV Q5M PRN PRN Reason: Oversedation/Resp Depression Stop: 09/26/22 13:11 Ondansetron HCl (Ondansetron Inj 2 Mg/Ml 2 Ml Vial) 4 mg IV Q6H PRN PRN Reason: Nausea And Vomiting Stop: 09/26/22 13:11 Oxycodone HCl (Oxycodone Hcl Ir 5 Mg Tab (Immediate Release)) 5 - 10 mg PO Q4H PRN PRN Reason: Pain or Pre PT Stop: 09/10/22 13:11 Sennosides (Senna 8.6 Mg Tab) 17.2 mg PO HS MARJORIE Stop: 09/26/22 20:59 Last Admin: 08/27/22 21:43 Dose: 17.2 mg Tamsulosin HCl (Tamsulosin Hcl 0.4 Mg Cap) 0.4 mg PO QAM PRN PRN Reason: UNABLE to void Stop: 09/26/22 13:11 Discharge Data Procedures Performed Operation Date: 08/27/22 08:50 Actual Procedures p Right Total Hip Arthroplasty-Uncemented - Wally Arora MD Hospital Course (1) S/P total right hip arthroplasty: Patient is doing well status post right total hip arthroplasty postop day 1. Patient is not having any pain at this time he has not been given narcotics and is doing well. At this time I am recommending patient [facility] He is aware of maintaining hip precautions and is able to verbalize these, no bending past 90 degrees, no internal rotation, and no crossing legs. He is aware this is to help prevent hip dislocation. He has a hip abduction pillow that must be used between legs when sleeping. He was advised as well as the snf on these hip precautions. He was provided a order for a rolling walker to use with ambulating. He was shown exercises to do by physical therapy he should do these daily and if physical therapy is available to participate in therapy while maintaining hip precautions. An order was also provided for a raised toilet seat to help maintain hip precautions. Patient is not permitted to have a field irrigation worker in snf due to safety concerns. I did advise Edyta at [place] that he will need assistance with applying NARCISA hose, socks or sneakers and with dressing. Patient's pain is controlled advised Edyta at [facility] to continue with Tylenol and we recommend using diclofenac 75 mg twice daily x30 days for pain as well as to prevent hypertrophic bone formation. Patient will be on an aspirin 81 mg twice daily x30 days for DVT prophylaxis. He is also to wear NARCISA hose for 4 weeks. He may take the NARCISA hose off at night to sleep. His dressing is clean and should stay in place if it starts to lift they can reinforce this. If it becomes soiled they should call the office at [phone]. This should stay in place until he is seen. He may shower not to soak the dressing but may get it wet. Caution while in shower to prevent fall. He will need to to return to the office for suture removal instructions [facility]. They will call to get the appointment scheduled. If any concerns such as fever, chills, night sweats, drainage or redness from the incision site or surrounding or any falls they are to contact the office at [phone]. Patient is not aware of a follow-up appointment he is aware that they will call to arrange something in the near future.
== END 2022-08-28 11:16 ==
LOC: 3E 07:13 → ASU 07:13
DX: M16.11 Unilateral primary osteoarthritis, right hip; M25.851 Other specified joint disorders, right hip; Z20.822 Contact with and (suspected) exposure to COVID-19; I10 Essential (primary) hypertension

== ENCOUNTER 2023-06-06 01:17 | Inpatient (IN) ==
[2023-06-06] MEDS: diphenhydrAMINE 50 MG/ML VIAL IV STA (02:12)
[2023-06-06] MEDS: SODIUM CHLORIDE 0.9% 1,000 ML IV SCH ×2 (02:12→09:09)
[2023-06-06 02:34] LABS: Basophils # (auto) 0.05 K/uL (0.00-0.20); Basophils % (auto) 0.4 %; Eosinophils # (auto) 0.39 K/uL (0.00-0.50); Eosinophils % (auto) 3.4 %; Hematocrit (blood only) 47.1 % (42.0-52.0); Hemoglobin 15.9 g/dl (14.0-18.0); Immature Granulocytes # (auto) 0.05 K/uL (0.01-0.20); Immature Granulocytes % (auto) 0.4 %; Lymphocytes # (auto) 3.35 K/uL (1.20-3.40); Lymphocytes % (auto) 29.3 %; Mean Corpuscular Hemoglobin 30.9 pg (25.0-34.0); Mean Corpuscular Hgb Conc 33.8 g/dL (32.0-36.0); Mean Corpuscular Volume 91.6 fL (80.0-100.0); Mean Platelet Volume 9.8 fL (9.4-12.4); Monocytes # (auto) 1.32 K/uL (0.11-0.59); Monocytes % (auto) 11.5 %; Neutrophils # (auto) 6.29 K/uL (1.40-6.50); Platelet Count 343 K/uL (130-400); RDW Coefficient of Variation 11.9 % (11.5-14.5); RDW Standard Deviation 40.3 fL (36.4-46.3); Red Blood Count 5.14 M/uL (4.70-6.10); White Blood Count 11.45 K/ul (4.8-10.8)
[2023-06-06 02:49] LABS: Alanine Aminotransferase 14 U/L (7-52); Albumin Globulin Ratio 1.1 (0.9-2); Albumin Level 3.8 gm/dl (3.4-5.0); Alkaline Phosphatase 104 U/L (34-104); Anion Gap 8 (3-11); BUN Creatinine Ratio 16.4 (10-20); Bilirubin,Total 0.5 mg/dl (0.2-1.0); Blood Urea Nitrogen 26 mg/dl (6-23); Calcium 8.8 mg/dl (8.6-10.3); Carbon Dioxide 27 mmol/L (21-32); Chloride 103 mmol/L (98-107); Creatinine Clr Calc Pharmacy 48.8 ml/min; Est GFR (African American) 50.6 ml/min; Est GFR (Non-African American) 43.6 ml/min; Globulin 3.6 gm/dl (2.5-4.0); Glucose 120 mg/dl (70-99(Fasting)); Lipase 4 U/L (11-82); Sodium 138 mmol/L (136-145); Total Protein 7.4 gm/dl (6.0-8.3)
--- NOTE | 2023-06-06 03:00 | Emergency Department Note ---
Impression & Plan Adverse reaction to drug, RAYMOND (acute kidney injury), Rash ED Provider Note ED Provider Note NAME: GLENROY [id number] AGE:68 SEX: Male : 1955 ARRIVES VIA: EMS INFORMANT: Patient ED PROVIDER(s): Sun Souza DO CHIEF COMPLAINT: Rash, reaction to medication HPI: This is a 68-year-old male presents emergency department from a local alf due to concern for worsening rash. Patient states she was seen here several days ago due to lower extremity swelling. He had a Doppler performed which was negative for blood clots. He states upon return to the alf he was kept in the [facility] where he was started on an antibiotic and a steroid in addition to a water pill. He states since starting these he began to develop a skin rash that has become more painful and is spreading and the areas of swelling and rash are now causing his skin to crack open. Patient states they did try to give him a cream but this did not help. He states no prior similar reactions in the past. No prior similar rash in the past. PAST MEDICAL HISTORY:See Below PAST SURGICAL HISTORY:See Below FAMILY HISTORY:See Below SOCIAL HISTORY:See Below HOME MEDICATIONS:See Below ALLERGIES:See Below VITALS:See Below PHYSICAL EXAMINATION: GENERAL: alert, well appearing, well nourished, no distress, non-toxic EYE EXAM: normal conjunctiva, PERRL and EOM's grossly intact OROPHARYNX: no exudate, no erythema, lips, buccal mucosa, and tongue normal and mucous membranes are moist, no mucocutaneous lesions NECK: supple, no nuchal rigidity, no adenopathy, non-tender LUNGS: Clear to auscultation. Normal chest wall mechanics, no w/r/r HEART: no murmurs, S1 normal and S2 normal ABDOMEN: abdomen soft, non-tender, normo-active bowel sounds, no masses, no rebound or guarding. SKIN: Scattered rash noted throughout body that appears maculopapular and erythematous with some places coalescing into larger patches, scattered areas of plaquing, no desquamation, right lower extremity with overlying rash now has breaks in skin with evolving surrounding erythema; worst areas of rash appear to be the extremities although there is truncal involvement of the rash additionally as well as the face/head and ears UPPER EXTREMITIES: upper extremities are grossly normal. FROM, nml pulses b/l. LOWER EXTREMITIES: Bilateral pitting edema, worse on right which is 3+. FROM, nml pulses b/l. RLE slightly warm to touch NEURO EXAM: Normal sensorium, cranial nerves II-XII grossly intact, normal speech, no facial droop,nogross weakness of arms, no gross weakness of legs. Gross sensation intact. No ataxia. Vital Signs: reviewed and remarkable Differential Diagnosis: Contact Dermatitis, Viral Exanthum, Urticaria, Allergic Reaction, SJS, Toxic Epidermal Necrolysis, Erythema Multiforme, Cellulitis, Scabies, HSV, Varicella, Zoster, Eczema, Staph Scalded Skin, Fungal, amongst other pathologies entertained. MEDICAL DECISION MAKING: This is a 68-year-old male presents emerged from due to concern for worsening rash and lower extremity edema. Patient with multiple recent antibiotics and medication changes. He was afebrile vital signs stable. No evidence of mucous membrane involvement, or respiratory distress. Labs drawn and sent, IV established, patient monitored on telemetry. He was given IV fluids additionally. I did call and discussed the case with the on-call RN at the [facility] he was able to provide additional timeline regarding his recent antibiotics and other medication changes. Based on this it seems as though patient began having a rash after he started taking Bactrim. While the Bactrim was stopped, the rash did not improve and patient continued on the other medications including Levaquin. It is still unclear what infection was being treated as both the patient and the [facility] nurse state he never had any redness or warmth to the lower extremity to otherwise more strongly suggest cellulitis. He did have a Doppler that was negative for DVT. Patient noted to have RAYMOND here, likely from recent Bactrim and Levaquin. Due to extensive rash, RAYMOND, and concern for worsening edema, case discussed with the hospitalist team for additional evaluation and management. At this time I do not suspect SJS or TEN. Consultation(s): 0313: Discussed with ANNA Ye in the [place] at the [facility]. Patient had been started on clindamycin this past week initially. Staff there was concern for possible cellulitis because of the right lower extremity edema. He was then sent in for evaluation here and had a negative Doppler. Upon returning to the present the nurse practitioner changed him to Bactrim. She states he was on Bactrim for 2 days, this was stopped on the . On the Levaquin was added additionally. She states he had also been on Lasix but that was stopped on the and spironolactone started. She states prednisone was added on the additionally. She states the rash never started until after the initiation of Bactrim however prior to that he had no clinical appearance of cellulitis on exam in her opinion. She states since being on these additional antibiotics he has had increased swelling and increased spread of the rash. 0356: Discussed with Dr. Dobbs, [facility] hospitalist, for additional evaluation and mgmt. ER Treatment Provided: See below Diagnostics Interpreted By Me: -Cardiac Monitoring: An order was placed for continuous cardiac monitoring. The monitor shows a rate of 88 with normal sinus rhythm. -Laboratory studies: As stated above and show below. Triage Nursing Note Reviewed Prior/Outside Records Reviewed -med list and records sent from alf Past Med/Surg History Medical History History of kidney stones Eczema Inguinal hernia HCV (hepatitis C virus) Prostate cancer no other details listed Constipation Arthritis Glaucoma (increased eye pressure) Surgical History Hx of hernia repair Social History Smoking Status: Former smoker Tobacco Type: Cigarettes Preferred Language: Citizen Of The [place] [employer] Required: No Beliefs That Will Affect Care: Cultural Cultural Beliefs: unknown Feels Safe at Home: Yes Allergies Allergies Allergy/AdvReac Type Severity Reaction Status Date / Time clindamycin Allergy Intermediate ON SCI Verified 06/06/23 01:55 [facility] sulfamethoxazole Allergy Intermediate Rash Verified 06/06/23 05:05 [From Bactrim] trimethoprim [From Bactrim] Allergy Intermediate Rash Verified 06/06/23 05:05 Home Meds Home Medications Medication Instructions Recorded Confirmed brimonidine 0.1 % eye drops 1 drp OPB BID 08/19/22 06/06/23 (Alphagan P) dorzolamide 22.3 mg-timolol 6.8 1 drp OPB BID 08/19/22 06/06/23 mg/mL eye drops (Cosopt) latanoprost 0.005 % eye drops 1 drp OPB HS 08/19/22 06/06/23 aspirin 81 mg tablet,delayed 81 mg PO BID 09/06/22 06/06/23 release hydroxyzine pamoate 25 mg capsule 25 mg PO TID PRN PRURITUS 06/06/23 06/06/23 levofloxacin 750 mg tablet 750 mg PO DAILY 06/06/23 06/06/23 miconazole nitrate 2 % topical 1 applic topical BID 06/06/23 06/06/23 cream prednisone 20 mg tablet 0 mg PO DAILY 06/06/23 06/06/23 spironolactone 25 mg tablet 25 mg PO BID 06/06/23 06/06/23 vitamin A and D 1 applic topical BID 06/06/23 06/06/23 Results & Data (ED) Vital Signs Vital Signs - 24 hr 06/06/23 01:24 06/06/23 01:52 06/06/23 02:16 Temperature 36.4 C L Temperature Source Temporal Artery Scan Pulse Rate 106 H 82 73 Pulse Rate [Apical] Pulse Rhythm [Apical] Pulse Strength [Apical] Respiratory Rate 18 16 Respiratory Effort / Characteristics Non-Labored Respiratory Depth Normal Respiratory Pattern Regular Blood Pressure 150/89 H Blood Pressure [Right Arm] Blood Pressure Mean 109 Blood Pressure Mean [Right Arm] Blood Pressure Position [Right Arm] Pulse Oximetry 99 98 Oxygen Delivery Method Room Air Sepsis Recent Fever Within 48 Hours No Sepsis New/Unexplained Change in Mental Status No Sepsis Action Taken by Nursing No Action Required 06/06/23 04:51 06/06/23 05:45 Temperature Temperature Source Pulse Rate 87 Pulse Rate [Apical] 79 Pulse Rhythm [Apical] Regular Pulse Strength [Apical] Normal Respiratory Rate 14 Respiratory Effort / Characteristics Non-Labored Respiratory Depth Normal Respiratory Pattern Regular Blood Pressure Blood Pressure [Right Arm] 120/74 Blood Pressure Mean Blood Pressure Mean [Right Arm] 89 Blood Pressure Position [Right Arm] Sitting Pulse Oximetry 97 Oxygen Delivery Method Room Air Sepsis Recent Fever Within 48 Hours Sepsis New/Unexplained Change in Mental Status Sepsis Action Taken by Nursing Laboratory Data 06/06/23 02:10 06/06/23 03:21 Lab Results 06/06/23 06/06/23 Range/Units 02:10 03:21 WBC 11.45 H (4.8-10.8) K/ul RBC 5.14 (4.70-6.10) M/uL Hgb 15.9 (14.0-18.0) g/dl Hct 47.1 (42.0-52.0) % MCV 91.6 (80.0-100.0) fL MCH 30.9 (25.0-34.0) pg MCHC 33.8 (32.0-36.0) g/dL RDW Std Deviation 40.3 (36.4-46.3) fL RDW Coeff of Pablo 11.9 (11.5-14.5) % Plt Count 343 (130-400) K/uL MPV 9.8 (9.4-12.4) fL Immature Gran % (Auto) 0.4 % Neut % (Auto) 55.0 % Lymph % (Auto) 29.3 % Sanders % (Auto) 11.5 % Eos % (Auto) 3.4 % Baso % (Auto) 0.4 % Neut # (Auto) 6.29 (1.40-6.50) K/uL Lymph # (Auto) 3.35 (1.20-3.40) K/uL Sanders # (Auto) 1.32 H (0.11-0.59) K/uL Eos # (Auto) 0.39 (0.00-0.50) K/uL Baso # (Auto) 0.05 (0.00-0.20) K/uL Immature Gran # (Auto) 0.05 (0.01-0.20) K/uL PT Cancelled 11.4 INR Cancelled 1.0 Sodium 138 (136-145) mmol/L Potassium TNP 4.6 Chloride 103 (98-107) mmol/L Carbon Dioxide 27 (21-32) mmol/L Anion Gap 8 (3-11) BUN 26 H (6-23) mg/dl Creatinine 1.59 H (0.6-1.4) mg/dl Est Cr Clr Drug Dosing 48.8 ml/min Est GFR ( Amer) 50.6 ml/min Est GFR (Non-Af Amer) 43.6 ml/min BUN/Creatinine Ratio 16.4 (10-20) Glucose 120 H (70-99(Fasting)) mg/dl Calcium 8.8 (8.6-10.3) mg/dl Magnesium 2.0 (1.7-2.4) mg/dl Total Bilirubin 0.5 (0.2-1.0) mg/dl AST TNP 21 ALT 14 (7-52) U/L Alkaline Phosphatase 104 (34-104) U/L Troponin I High Sens 4.0 (0-20) pg/ml B-Natriuretic Peptide 8 (0-100) pg/ml Total Protein 7.4 (6.0-8.3) gm/dl Albumin 3.8 (3.4-5.0) gm/dl Globulin 3.6 (2.5-4.0) gm/dl Albumin/Globulin Ratio 1.1 (0.9-2) Lipase 4 L (11-82) U/L TSH 0.408 (0.300-4.500) uIu/ml Administered Medications Sodium Chloride (Nss) 1,000 mls @ 125 mls/hr IV .Q8H MARJORIE Stop: 07/06/23 01:59 Last Admin: 06/06/23 02:12 Dose: 125 mls/hr Documented By: LUANN Discontinued Medications Diphenhydramine HCl (Diphenhydramine 50 Mg/Ml Vial) 25 mg IV NOW STA Stop: 06/06/23 01:49 Last Admin: 06/06/23 02:12 Dose: 25 mg Documented By: LUANN Acetaminophen (Ofirmev) 1,000 mg in 100 mls @ 400 mls/hr IV NOW STA Stop: 06/06/23 03:38 Last Infusion: 06/06/23 03:45 Dose: Infused Documented By: Admin: 06/06/23 03:27 Dose: 400 mls/hr Documented By: YOLANDE Prochlorperazine (Compazine) 1 mls @ 1 mls/min IV ONE ONE Stop: 06/06/23 04:04 Last Admin: 06/06/23 04:49 Dose: 1 mls/min Documented By: AAW Discharge Plan Visit Data Chief Complaint: Allergic Reaction Stated Complaint: SKIN SORES,ALLERGIC REACTION ED Provider: Sun Souza Discharge Problem: Adverse reaction to drug, RAYMOND (acute kidney injury), Rash Forms Stand Alone Forms: [facility] Prescriptions Prescriptions: No Action latanoprost 0.005 % Drops 1 drp OPB HS dorzolamide-timolol [Cosopt] 22.3-6.8 mg/mL Drops 1 drp OPB BID brimonidine [Alphagan P] 0.1 % Drops 1 drp OPB BID Rx Instructions: administer approximately 8 hours apart aspirin 81 mg Tablet,Delayed Release (Dr/Ec) 81 mg PO BID miconazole nitrate 2 % Cream 1 applic TOPICAL BID prednisone 20 mg Tablet 0 mg PO DAILY Rx Instructions: ORDERED 06/05/23, NO DATE RECORDED THAT MED WAS STARTED, ENDS 06/16/23, TAPER DIRECTED. vitamin A and D Ointment 1 applic TOPICAL BID spironolactone 25 mg Tablet 25 mg PO BID levofloxacin 750 mg Tablet 750 mg PO DAILY hydroxyzine pamoate 25 mg Capsule 25 mg PO TID PRN (Reason: PRURITUS) Referrals Referrals: Yazmin TYSON [Primary Care Provider] -
[2023-06-06 03:05] LABS: Thyroid Stimulating Hormone 0.408 uIu/ml (0.300-4.500)
[2023-06-06] MEDS: ACETAMINOPHEN 1,000 MG/100 ML VIAL IV STA (03:27)
[2023-06-06 04:02] LABS: Potassium 4.6 mmol/L (3.5-5.1)
[2023-06-06 04:21] LABS: Prothrombin Time 11.4 Seconds (9.0-12.0)
[2023-06-06] MEDS: PROCHLORPERAZINE 1 ML IV ONE (04:49)
--- NOTE | 2023-06-06 05:26 | History & Physical Report ---
Date of Service June 06, 2023 Assessment & Plan (1) Rash: Plan: 68-year-old male with past medical history significant for kidney stones, eczema, inguinal hernia, hepatitis C virus, prostate cancer, arthritis, glaucoma comes from long term because of extensive skin rash and lower extremity edema. About 10-15 days ago he developed edema of the lower extremity more in right than the left lower extremity. Initially thought to be cellulitis and prescribed clindamycin. As was not getting better he came to the ER on June 01. Right lower extremity Doppler was negative for DVT in the ER. He was discharged back to long term on Lasix. In the long term again clindamycin was changed to Bactrim. On starting Bactrim patient developed rash. Bactrim was stopped and Lasix was also changed to spironolactone. And was prescribed Levaquin. Prednisone was also started. But the rash continued to spread involving most of the body so he was sent back here. Patient has swelling of the lower extremities right more than the left lower extremity. This rash is somewhat more extensive in lower extremity with some crusting seen. Also has some significant rash in the upper extremity and the face. Some rash also seen on the trunk region. Several small macules with pustules also seen. Patient complains of pain in lower extremity. Denies any fevers. No headache. One he felt dizzy and short of breath. Currently no shortness of breath. No chest pain. No cough. No painful swallowing. Appetite is okay. Eating and drinking okay. No nausea. No abdominal pain. Normal bowel and bladder movements. Is ambulating okay. Hemodynamics are okay. Extensive rash As mentioned in H&P Most likely drug rash Rash also involves face Possibly from Bactrim On labs no eosinophilia seen LFTs are okay Creatinine is 1.5 Will hold Levaquin, prednisone and spironolactone which were started recently and monitor If not improving will consult dermatology RAYMOND Presented with creatinine 1.5 Holding spironolactone Avoid nephrotoxic agents Gentle fluids Follow labs Lower extremity edema Right lower Doppler was negative for DVT recently Will follow echo Will consider CT abdomen pelvis when patient is more stable for any compressive lesions Glaucoma Continue home eyedrops DVT prophylaxis Heparin subcu Disposition Med/telemetry Full code History of Present Illness Chief Complaint: Skin rash and lower extremity edema Primary Care Provider: MARBELLA [place] 68-year-old male with past medical history significant for kidney stones, eczema, inguinal hernia, hepatitis C virus, prostate cancer, arthritis, glaucoma comes from long term because of extensive skin rash and lower extremity edema. About 10-15 days ago he developed edema of the lower extremity more in right than the left lower extremity. Initially thought to be cellulitis and prescribed clindamycin. As was not getting better he came to the ER on June 01. Right lower extremity Doppler was negative for DVT in the ER. He was discharged back to long term on Lasix. In the long term again clindamycin was changed to Bactrim. On starting Bactrim patient developed rash. Bactrim was stopped and Lasix was also changed to spironolactone. And was prescribed Levaquin. Prednisone was also started. But the rash continued to spread involving most of the body so he was sent back here. Patient has swelling of the lower extremities right more than the left lower extremity. This rash is somewhat more extensive in lower extremity with some crusting seen. Also has some significant rash in the upper extremity and the face. Some rash also seen on the trunk region. Several small macules with pustules also seen. Patient complains of pain in lower extremity. Denies any fevers. No headache. One he felt dizzy and short of breath. Currently no shortness of breath. No chest pain. No cough. No painful swallowing. Appetite is okay. Eating and drinking okay. No nausea. No abdominal pain. Normal bowel and bladder movements. Is ambulating okay. Hemodynamics are okay. Past medical history as mentioned above Past surgical history. Patient states he had surgery for prostate cancer 20 years ago. Had a surgery in right hip region. Social history. States he is quit smoking 4 years ago.used to smoke about 2 cigarettes daily. Denies any alcohol use. Family history. Has cancer in the family. Allergies Allergy/AdvReac Type Severity Reaction Status Date / Time clindamycin Allergy Intermediate ON SCI Verified 06/06/23 01:55 [facility] sulfamethoxazole Allergy Intermediate Rash Verified 06/06/23 05:05 [From Bactrim] trimethoprim [From Bactrim] Allergy Intermediate Rash Verified 06/06/23 05:05 Home Medications Medication Instructions Recorded Confirmed Type brimonidine 0.1 % eye drops 1 drp OPB BID 08/19/22 06/06/23 History (Alphagan P) dorzolamide 22.3 mg-timolol 6.8 1 drp OPB BID 08/19/22 06/06/23 History mg/mL eye drops (Cosopt) latanoprost 0.005 % eye drops 1 drp OPB HS 08/19/22 06/06/23 History aspirin 81 mg tablet,delayed 81 mg PO BID 09/06/22 06/06/23 History release hydroxyzine pamoate 25 mg capsule 25 mg PO TID PRN PRURITUS 06/06/23 06/06/23 History levofloxacin 750 mg tablet 750 mg PO DAILY 06/06/23 06/06/23 History miconazole nitrate 2 % topical 1 applic topical BID 06/06/23 06/06/23 History cream prednisone 20 mg tablet 0 mg PO DAILY 06/06/23 06/06/23 History spironolactone 25 mg tablet 25 mg PO BID 06/06/23 06/06/23 History vitamin A and D 1 applic topical BID 06/06/23 06/06/23 History Past Med/Surg History Medical History History of kidney stones Eczema Inguinal hernia HCV (hepatitis C virus) Prostate cancer no other details listed Constipation Arthritis Glaucoma (increased eye pressure) Surgical History Hx of hernia repair Social History Smoking Status: Former smoker Tobacco Type: Cigarettes Preferred Language: [place] Channeler Required: No Beliefs That Will Affect Care: Cultural Cultural Beliefs: unknown Feels Safe at Home: Yes Review of Systems Review of Systems: All systems reviewed & are unremarkable except as noted in HPI & below Physical Exam Physical Exam: General- Not in distress. Head- atraumatic Eyes- PERRL. ENT- oropharynx clear Neck- supple, no JVD. Lungs- clear to auscultation no wheezing or crackles. Heart- regular rate and rhythm; no murmur, no gallop. Abdomen- normal bowel sounds, soft, nontender, no distension. Extremities- b/l lower extremity edema present right > left Neuro- alert, oriented PERRL, no facial palsy; no dysarthria; moves extremities. Skin- extensive skin maculopapular rash seen in lower extremity with crusting seen. Also rash on the face, upper extremity and trunk seen. Results & Data Results & Data Vital Signs (Past 12 Hours) Vital Signs Temp Pulse Resp BP Pulse Ox O2 Del Method 06/06/23 02:16 73 16 150/89 H 98 06/06/23 01:52 82 06/06/23 01:24 36.4 C L 106 H 18 99 Room Air Diagnostic Findings Laboratory Results WBC 11.45 K/ul (4.8-10.8) H 06/06/23 02:10 RBC 5.14 M/uL (4.70-6.10) 06/06/23 02:10 Hgb 15.9 g/dl (14.0-18.0) 06/06/23 02:10 Hct 47.1 % (42.0-52.0) 06/06/23 02:10 MCV 91.6 fL (80.0-100.0) 06/06/23 02:10 MCH 30.9 pg (25.0-34.0) 06/06/23 02:10 MCHC 33.8 g/dL (32.0-36.0) 06/06/23 02:10 RDW Std Deviation 40.3 fL (36.4-46.3) 06/06/23 02:10 RDW Coeff of Pablo 11.9 % (11.5-14.5) 06/06/23 02:10 Plt Count 343 K/uL (130-400) 06/06/23 02:10 MPV 9.8 fL (9.4-12.4) 06/06/23 02:10 Immature Gran % (Auto) 0.4 % 06/06/23 02:10 Neut % (Auto) 55.0 % 06/06/23 02:10 Lymph % (Auto) 29.3 % 06/06/23 02:10 Tripp % (Auto) 11.5 % 06/06/23 02:10 Eos % (Auto) 3.4 % 06/06/23 02:10 Baso % (Auto) 0.4 % 06/06/23 02:10 Neut # (Auto) 6.29 K/uL (1.40-6.50) 06/06/23 02:10 Lymph # (Auto) 3.35 K/uL (1.20-3.40) 06/06/23 02:10 Tripp # (Auto) 1.32 K/uL (0.11-0.59) H 06/06/23 02:10 Eos # (Auto) 0.39 K/uL (0.00-0.50) 06/06/23 02:10 Baso # (Auto) 0.05 K/uL (0.00-0.20) 06/06/23 02:10 Immature Gran # (Auto) 0.05 K/uL (0.01-0.20) 06/06/23 02:10 PT 11.4 Seconds (9.0-12.0) 06/06/23 03:21 INR 1.0 (0.9-1.1) 06/06/23 03:21 Sodium 138 mmol/L (136-145) 06/06/23 02:10 Potassium 4.6 mmol/L (3.5-5.1) 06/06/23 03:21 Chloride 103 mmol/L (98-107) 06/06/23 02:10 Carbon Dioxide 27 mmol/L (21-32) 06/06/23 02:10 Anion Gap 8 (3-11) 06/06/23 02:10 BUN 26 mg/dl (6-23) H 06/06/23 02:10 Creatinine 1.59 mg/dl (0.6-1.4) H 06/06/23 02:10 Est Cr Clr Drug Dosing 48.8 ml/min 06/06/23 02:10 Est GFR ( Amer) 50.6 ml/min 06/06/23 02:10 Est GFR (Non-Af Amer) 43.6 ml/min 06/06/23 02:10 BUN/Creatinine Ratio 16.4 (10-20) 06/06/23 02:10 Glucose 120 mg/dl (70-99(Fasting)) H 06/06/23 02:10 Calcium 8.8 mg/dl (8.6-10.3) 06/06/23 02:10 Magnesium 2.0 mg/dl (1.7-2.4) 06/06/23 02:10 Total Bilirubin 0.5 mg/dl (0.2-1.0) 06/06/23 02:10 AST 21 U/L (13-39) 06/06/23 03:21 ALT 14 U/L (7-52) 06/06/23 02:10 Alkaline Phosphatase 104 U/L (34-104) 06/06/23 02:10 Troponin I High Sens 4.0 pg/ml (0-20) 06/06/23 02:10 B-Natriuretic Peptide 8 pg/ml (0-100) 06/06/23 02:10 Total Protein 7.4 gm/dl (6.0-8.3) 06/06/23 02:10 Albumin 3.8 gm/dl (3.4-5.0) 06/06/23 02:10 Globulin 3.6 gm/dl (2.5-4.0) 06/06/23 02:10 Albumin/Globulin Ratio 1.1 (0.9-2) 06/06/23 02:10 Lipase 4 U/L (11-82) L 06/06/23 02:10 TSH 0.408 uIu/ml (0.300-4.500) 06/06/23 02:10 Laboratory Results - last 24 hr 06/06/23 06/06/23 02:10 03:21 WBC 11.45 H RBC 5.14 Hgb 15.9 Hct 47.1 MCV 91.6 MCH 30.9 MCHC 33.8 RDW Std Deviation 40.3 RDW Coeff of Pablo 11.9 Plt Count 343 MPV 9.8 Immature Gran % (Auto) 0.4 Neut % (Auto) 55.0 Lymph % (Auto) 29.3 Tripp % (Auto) 11.5 Eos % (Auto) 3.4 Baso % (Auto) 0.4 Neut # (Auto) 6.29 Lymph # (Auto) 3.35 Tripp # (Auto) 1.32 H Eos # (Auto) 0.39 Baso # (Auto) 0.05 Immature Gran # (Auto) 0.05 PT Cancelled 11.4 INR Cancelled 1.0 Sodium 138 Potassium TNP 4.6 Chloride 103 Carbon Dioxide 27 Anion Gap 8 BUN 26 H Creatinine 1.59 H Est Cr Clr Drug Dosing 48.8 Est GFR ( Amer) 50.6 Est GFR (Non-Af Amer) 43.6 BUN/Creatinine Ratio 16.4 Glucose 120 H Calcium 8.8 Magnesium 2.0 Total Bilirubin 0.5 AST TNP 21 ALT 14 Alkaline Phosphatase 104 Troponin I High Sens 4.0 B-Natriuretic Peptide 8 Total Protein 7.4 Albumin 3.8 Globulin 3.6 Albumin/Globulin Ratio 1.1 Lipase 4 L TSH 0.408 Code Status & VTE Plan VTE Prophylaxis Plan VTE Prophylaxis will be ordered: Yes
[2023-06-06] MEDS ORDERED: NITROGLYCERIN SL 0.4 MG/TAB TAB SL PRN (08:57)
[2023-06-06] MEDS: HEPARIN SOD 5,000 UNIT/0.5 ML VIAL SQ SCH (11:01)
[2023-06-06] MEDS: BRIMONIDINE TARTRATE-P 0.15% 5 ML BTL OPB SCH (11:02)
[2023-06-06] MEDS: ASPIRIN 81 MG ECTAB PO SCH (11:02)
[2023-06-06] MEDS: DORZOLAMIDE/TIMOLOL 22.3/6.8MG/ML 10 ML BTL OPB SCH (11:03)
--- NOTE | 2023-06-06 17:00 | Communication Note ---
Date of Service: June 06, 2023 68-year-old male was admitted with bilateral leg swelling and rash more alert generalized that has been going on for some time. He has that blistering lesi ons involving the extremities with few of the blisters rupturing. He has an antibiotic with clindamycin and also Bactrim recently . Got prednisone and also Levaquin. Since that rash on the blisters worsened he was transferred back to ER for further evaluation. Remains hemodynamically stable but denies any other significant symptoms. Will need to get chest x-ray, EKG and echocardiogram to make sure the edema is not cardiac in origin. He will have a full progress note tomorrow. Dr Bernard Salamanca
--- NOTE | 2023-06-06 17:30 | XRay Report ---
XR chest 1V portable HISTORY: Shortness of breath. COMPARISON: None. FINDINGS: The lungs are clear. Cardiac silhouette is normal in size. No pleural effusions. No pneumot horax. IMPRESSION: No acute process. ACT 112: Negative or not required by law. Electronically signed by: Jesus Bravo M.D. 06/06/2023 5:28 PM
[2023-06-06] MEDS: LATANOPROST 0.005% OP SOLN 2.5 ML BTL OPB SCH (21:00)
[2023-06-07 06:46] LABS: BUN Creatinine Ratio 15.9 (10-20); Calcium 7.9 mg/dl (8.6-10.3); Creatinine Clr Calc Pharmacy 72.5 ml/min; Est GFR (African American) 81.7 ml/min; Est GFR (Non-African American) 70.5 ml/min; Magnesium 1.9 mg/dl (1.7-2.4)
[2023-06-07 07:45] LABS: Basophils # (auto) 0.06 K/uL (0.00-0.20); Basophils % (auto) 0.8 %; Eosinophils # (auto) 1.34 K/uL (0.00-0.50); Eosinophils % (auto) 18.4 %; Hematocrit (blood only) 45.5 % (42.0-52.0); Hemoglobin 15.7 g/dl (14.0-18.0); Immature Granulocytes % (auto) 1.4 %; Lymphocytes # (auto) 2.79 K/uL (1.20-3.40); Lymphocytes % (auto) 38.3 %; Mean Corpuscular Hemoglobin 31.7 pg (25.0-34.0); Mean Corpuscular Hgb Conc 34.5 g/dL (32.0-36.0); Mean Corpuscular Volume 91.7 fL (80.0-100.0); Mean Platelet Volume 9.9 fL (9.4-12.4); Monocytes % (auto) 12.4 %; Neutrophils # (auto) 2.09 K/uL (1.40-6.50); Neutrophils % (auto) 28.7 %; Platelet Count 364 K/uL (130-400); RDW Coefficient of Variation 12.4 % (11.5-14.5); RDW Standard Deviation 41.6 fL (36.4-46.3); Red Blood Count 4.96 M/uL (4.70-6.10); White Blood Count 7.28 K/ul (4.8-10.8)
--- NOTE | 2023-06-07 09:01 | Electrocardiogram Report ---
Test Reason : Blood Pressure : / mmHG Vent. Rate : 073 BPM Atrial Rate : 073 BPM P-R Int : 190 ms QRS Dur : 074 ms QT Int : 396 ms P-R-T Axes : 067 017 038 degrees QTc Int : 436 ms Normal sinus rhythm Normal ECG When compared with ECG of 06-SEP-2022 12:47, No significant change was found Confirmed by Lester Rao ([id number]) on 06/07/2023 9:00:43 AM Referred By: [facility] Confirmed By:Lester Rao
[2023-06-07] MEDS: ACETAMINOPHEN 325 MG TAB PO PRN (09:52)
[2023-06-07] MEDS ORDERED: methylPREDNISolone 125 MG/2 ML VIAL IV STA (14:07)
[2023-06-07] MEDS: diphenhydrAMINE 50 MG/ML VIAL IV PRN (14:18)
[2023-06-07] MEDS: methylPREDNISolone 40 MG in SYRINGE 0 ML IV STA (14:18)
--- NOTE | 2023-06-07 15:25 | Hospitalist Progress Note ---
Date of Service June 07, 2023 Assessment & Plan (1) Rash: Plan: 68-year-old male with past medical history significant for kidney stones, eczema, inguinal hernia, hepatitis C virus, prostate cancer, arthritis, glaucoma comes from [facility] because of extensive skin rash and lower extremity edema. About 10-15 days ago he developed edema of the lower extremity more in right than the left lower extremity. Initially thought to be cellulitis and prescribed clindamycin. As was not getting better he came to the ER on June 01. Right lower extremity Doppler was negative for DVT in the ER. He was discharged [facility] to [facility] on Lasix. In the [facility] again clindamycin was changed to Bactrim. On starting Bactrim patient developed rash. Bactrim was stopped and Lasix was also changed to spironolactone. And was prescribed Levaquin. Prednisone was also started. But the rash continued to spread involving most of the body so he was sent back here. Patient has swelling of the lower extremities right more than the left lower extremity. This rash is somewhat more extensive in lower extremity with some crusting seen. Also has some significant rash in the upper extremity and the face. Some rash also seen on the trunk region. Several small macules with pustules also seen. Patient complains of pain in lower extremity. Denies any fevers. No headache. One he felt dizzy and short of breath. Currently no shortness of breath. No chest pain. No cough. No painful swallowing. Appetite is okay. Eating and drinking okay. No nausea. No abdominal pain. Normal bowel and bladder movements. Is ambulating okay. Hemodynamics are okay. Extensive generalized rash Maculopapular with a few blisters mainly involving the extremities and face Likely from drugs-could be sulfa On labs no eosinophilia seen Received clindamycin, Bactrim, Levaquin as an outpatient over 2 to 3 weeks timeframe Will hold Levaquin, prednisone and spironolactone which were started recently and monitor Has been getting Benadryl and given 1 dose of Solu-Medrol today Please see the pictures to evaluate the wounds/rash Oncology has been consulted RAYMOND Presented with creatinine 1.5 Holding spironolactone Avoid nephrotoxic agents Gentle fluids Kidney function has been normalized Advised to drink more fluid Lower extremity edema Right lower Doppler was negative for DVT recently Echo of the heart showed-LV ejection fraction 60 to 65%, there is mild mitral regurgitation, there is mild tricuspid regurgitation, Doppler findings do not suggest pulmonary hypertension, normal LV relaxation Will consider CT abdomen pelvis when patient is more stable for any compressive lesions Will hold for any Lasix now Glaucoma Continue home eyedrops DVT prophylaxis Heparin subcu Disposition Med/telemetry Full code Admission and Anticipated Discharge Date Admission Date: June 06, 2023 Subjective 06/07/2023 The patient was seen and examined in medical telemetry unit He has been complaining of swelling of the face and itchiness involving all over Denies any chest pain, palpitation or shortness of breath No fever and or chills Review of Systems Review of Systems: All systems reviewed and are unremarkable except as noted below Physical Exam Physical Exam: Lying in bed comfortably Constitutional: well developed, well nourished, + ill appearing and + obese Eyes: PERRL, conjunctivae normal, anicteric sclerae ENMT: external ear and nose normal, oropharynx normal Neck: trachea midline, no thyromegaly Respiratory: no respiratory distress Auscultation: lungs clear to auscultation bilaterally Cardiovascular: Rate/Rhythm: regular rate and regular rhythm; not tachycardic Heart Sounds: normal S1 and normal S2; no murmur Extremities: + edema (Bilateral leg edema 1+ seems to be chronic) Gastrointestinal (Abdomen): Inspection/Auscultation: normal bowel sounds; abdomen not distended Percussion/Palpation: abdomen soft; abdomen nontender Musculoskeletal: No acute arthritis involving any of the joints Skin: Generalized maculopapular and blistering lesions involving mainly extremities and face Neurologic: normal touch/pain/proprioception and moves all extremities; no focal motor deficits Psychiatric: A+Ox3, euthymic affect Lymphatic: no cervical or axillary lymphadenopathy Results & Data Results & Data Vital Signs (Past 12 Hours) Vital Signs Temp Pulse Pulse Resp BP Pulse Ox O2 Del Method 06/07/23 15:01 81 06/07/23 11:19 36.9 C 88 16 109/69 98 Room Air 06/07/23 07:57 36.9 C 74 16 120/80 98 Room Air 06/07/23 07:50 71 06/07/23 03:36 36.7 C 75 20 115/73 98 Room Air Laboratory Results Short CBC 06/07/23 Range/Units 05:33 WBC 7.28 (4.8-10.8) K/ul Hgb 15.7 (14.0-18.0) g/dl Hct 45.5 (42.0-52.0) % Plt Count 364 (130-400) K/uL [facility] 06/07/23 05:33 Sodium 140 Potassium 4.0 Chloride 111 H Carbon Dioxide 25 BUN 17 Creatinine 1.07 D Glucose 108 H Calcium 7.9 L Medications Administered Current Inpatient Medications Acetaminophen (Acetaminophen 325 Mg Tab) 650 mg PO Q4H PRN PRN Reason: Pain or Fever Stop: 07/06/23 08:56 Last Admin: 06/07/23 09:52 Dose: 650 mg Aspirin (Aspirin 81 Mg Ectab) 81 mg PO DAILY MARJORIE Stop: 07/06/23 08:59 Last Admin: 06/07/23 09:51 Dose: 81 mg Brimonidine Tartrate (Brimonidine Tartrate-P 0.15% 5 Ml Btl) 1 drops OPB BID MARJORIE Stop: 07/06/23 08:59 Last Admin: 06/07/23 09:51 Dose: 1 drops Diphenhydramine HCl (Diphenhydramine 50 Mg/Ml Vial) 12.5 mg IV Q6H PRN PRN Reason: Itching Stop: 07/07/23 14:06 Last Admin: 06/07/23 14:18 Dose: 12.5 mg Dorzolamide/Timolol (Dorzolamide/Timolol 22.3/6.8mg/Ml 10 Ml Btl) 1 drops OPB BID [facility] Stop: 07/06/23 08:59 Last Admin: 06/07/23 09:51 Dose: 1 drops Heparin Sodium (Porcine) (Heparin Sod 5,000 Unit/0.5 Ml Vial) 5,000 units SQ Q8H MARJORIE Stop: 07/06/23 08:59 Last Admin: 06/07/23 09:52 Dose: 5,000 units Latanoprost (Latanoprost 0.005% Op Soln 2.5 Ml Btl) 1 drops OPB HS [facility] Stop: 07/06/23 20:59 Last Admin: 06/06/23 21:00 Dose: 1 drops Nitroglycerin (Nitroglycerin Sl 0.4 Mg/Tab Tab) 0.4 mg SL Q5M PRN PRN Reason: Chest Pain Stop: 07/06/23 08:56
[2023-06-08 06:14] LABS: BUN Creatinine Ratio 16.7 (10-20); Calcium 7.9 mg/dl (8.6-10.3); Creatinine Clr Calc Pharmacy 72.6 ml/min; Est GFR (African American) 93.1 ml/min; Est GFR (Non-African American) 80.3 ml/min; Magnesium 1.9 mg/dl (1.7-2.4); Phosphorus 2.2 mg/dl (2.5-4.9); Potassium 4.2 mmol/L (3.5-5.1)
[2023-06-08 06:37] LABS: Basophils # (auto) 0.03 K/uL (0.00-0.20); Basophils % (auto) 0.2 %; Eosinophils # (auto) 0.45 K/uL (0.00-0.50); Eosinophils % (auto) 3.7 %; Hematocrit (blood only) 44.5 % (42.0-52.0); Hemoglobin 15.3 g/dl (14.0-18.0); Immature Granulocytes # (auto) 0.08 K/uL (0.01-0.20); Immature Granulocytes % (auto) 0.7 %; Lymphocytes # (auto) 2.73 K/uL (1.20-3.40); Lymphocytes % (auto) 22.3 %; Mean Corpuscular Hemoglobin 31.2 pg (25.0-34.0); Mean Corpuscular Hgb Conc 34.4 g/dL (32.0-36.0); Mean Corpuscular Volume 90.6 fL (80.0-100.0); Mean Platelet Volume 9.8 fL (9.4-12.4); Monocytes # (auto) 1.26 K/uL (0.11-0.59); Monocytes % (auto) 10.3 %; Neutrophils # (auto) 7.68 K/uL (1.40-6.50); Neutrophils % (auto) 62.8 %; Platelet Count 280 K/uL (130-400); RDW Coefficient of Variation 12.1 % (11.5-14.5); RDW Standard Deviation 40.3 fL (36.4-46.3); Red Blood Count 4.91 M/uL (4.70-6.10); White Blood Count 12.23 K/ul (4.8-10.8)
[2023-06-08] MEDS: predniSONE 20 MG TAB PO SCH (12:59)
--- NOTE | 2023-06-08 16:27 | Dermatology Consultation ---
Date of Consultation June 08, 2023 Assessment & Plan (1) Stasis dermatitis: Unfortunately, this is a complicated history. I believe that this started as stasis dermatitis involving the right lower leg. It is unclear at this point if the secondary, generalized eruption is due to id reaction from impetiginization of his stasis dermatitis or adverse drug reaction (most likely would be sulfa- related). Unfortunately, I'm not certain that there is a definitive way to rule out adverse drug reaction, so I agree with avoidance in the future. Based on current presentation, recommend the followin) Bacterial culture taken today from the skin for further evaluation of secondary infection. Follow-up results as he likely will need some antimicrobial coverage for secondary infection. 2) Agree with systemic steroids given the severity of the presentation. Of note, this needs to be tapered slowly upon discharge to prevent rebound flaring. I would recommend tapering by 10 mg every 4 days. 3) Start clobetasol 0.05% cream to areas of the extremities twice daily x 2 weeks. 4) Start hydrocortisone 2.5% cream to areas of the face and ears twice daily x 2 weeks. 5) Continue antihistamines as needed for itching. Present on Admission?: Yes (2) Adverse reaction to drug: See above. Given the uncertainty, I would recommend avoidance of sulfa-based medication in the future. Present on Admission?: Yes History of Present Illness Reason for Consultation: Rash Requesting Physician: Kailey Salamanca MD Attending Physician: Kailey Salamanca MD History of Present Illness Patient is a 68 y/o male with past medical history significant for history of prostate cancer, arthritis and HCV admitted to [facility] from [facility] on 06/06/2023 for worsening rash and right lower extremity edema. Patient reports a history of right hip surgery 6 months ago for arthritis. He has had intermittent periods of increased swelling of the right lower leg since that time. He states about 2 weeks ago he developed acute worsening of swelling of the right lower leg. There was concern at the correctional facility that he was developing cellulitis, and he was started empirically on clindamycin. He reports that he also started to develop rash and itching on the right foot and lower leg. Patient reports that the swelling persisted, so he was brought from the correctional facility to [facility] ER on 06/02/2023 for evaluation. At that time Doppler ultrasound of the right lower leg was negative for DVT. He was discharged back to correctional facility with Lasix. At some point following evaluation at the ER his course of clindamycin was changed to Bactrim at the correctional facility. Patient then started breaking out more widespread with a rash involving areas of the face, chest, arms and legs. He complains of itching and some soreness. He has developed a few areas of blisters. He denies any irritation in the eyes or sores in the mouth. He denies any difficulty/pain with swallowing or involvement of the genital region. He denies any fever/chills, nausea/vomiting or diarrhea. Due to concern for an allergic reaction to Bactrim he was brought back to the [facility] ER on 06/06/2023 and admitted for further evaluation. Since admission his prior antibiotics have been discontinued. He received IV Solu-Medrol 40 mg yesterday and has been receiving Benadryl as needed for itching. Today he was switched to prednisone 40 mg daily. He has not noticed any worsening over the past 24 hours. He denies any history of adverse reaction to the medications in the past. Allergies Allergy/AdvReac Type Severity Reaction Status Date / Time clindamycin Allergy Intermediate ON [facility] Verified 06/06/23 01:55 [facility] sulfamethoxazole Allergy Intermediate Rash Verified 06/06/23 05:05 [From Bactrim] trimethoprim [From Bactrim] Allergy Intermediate Rash Verified 06/06/23 05:05 Home Medications Medication Instructions Recorded Confirmed Type brimonidine 0.1 % eye drops 1 drp OPB BID 08/19/22 06/06/23 History (Alphagan P) dorzolamide 22.3 mg-timolol 6.8 1 drp OPB BID 08/19/22 06/06/23 History mg/mL eye drops (Cosopt) latanoprost 0.005 % eye drops 1 drp OPB HS 08/19/22 06/06/23 History aspirin 81 mg tablet,delayed 81 mg PO BID 09/06/22 06/06/23 History release hydroxyzine pamoate 25 mg capsule 25 mg PO TID PRN PRURITUS 06/06/23 06/06/23 History levofloxacin 750 mg tablet 750 mg PO DAILY 06/06/23 06/06/23 History miconazole nitrate 2 % topical 1 applic topical BID 06/06/23 06/06/23 History cream prednisone 20 mg tablet 0 mg PO DAILY 06/06/23 06/06/23 History spironolactone 25 mg tablet 25 mg PO BID 06/06/23 06/06/23 History vitamin A and D 1 applic topical BID 06/06/23 06/06/23 History Patient History Medical History (Updated 06/08/23 @ 16:32 by Guilherme Laughlin MD) Stasis dermatitis History of kidney stones Eczema Inguinal hernia HCV (hepatitis C virus) Prostate cancer no other details listed Constipation Arthritis Glaucoma (increased eye pressure) Surgical History Hx of hernia repair Social History Smoking Status: Former smoker Tobacco Type: Cigarettes Preferred Language: Hebrew Communication Ability: Effective Dukey Rider Required: No Beliefs That Will Affect Care: None Current Living Situation: Other Current Living Situation Comment: [facility] Feels Safe at Home: Yes Assistive Devices: None Review of Systems Review of Systems: All systems reviewed & are unremarkable except as noted in Subjective Physical Exam Physical Exam: General Appearance:Well developed, well-nourished and in no acute distress Psych:Alert, Oriented and Appropriate Skin Type:5 Scalp/Hair:poorly-demarcated, erythematous, scaly thin plaques on the frontal scalp Face:poorly-demarcated, erythematous, scaly thin plaques with some yellow crusting suggestive of secondary impetiginization on the right ear > left ear, right cheek, left cheek, chin; +mild facial edema Eyelids/Ocular Mucosa: no abnormalities noted. Lips/Teeth/Gums: edentulous; otherwise, no abnormalities noted. Neck: poorly-demarcated, erythematous, scaly thin plaques Right Lower Extremity:3-4+ lower extremity pitting edema with poorly- demarcated, erythematous, scaly thin plaques and pseudovesiculation (clear lymphatic fluid) on the dorsal foot, [place], thigh Left Lower Extremity:2+ lower extremity pitting edema with poorly-demarcated, erythematous, scaly thin plaques (+few associated erosions) on the med[place], thigh Back:no abnormalities noted. Buttocks/Groin/Genitalia: patient denies any dermatitis (not examined) Right Upper Extremity:+gauze wrap/bandaging in place on the forearm; poorly- demarcated, erythematous, scaly thin plaques with a few resolving vesicles on the proximal lateral upper arm Left Upper Extremity:+gauze wrap/bandaging in place on the forearm; poorly- demarcated, erythematous, scaly thin plaques with a few resolving vesicles on the proximal lateral upper arm Chest/Breast/Axillae:few scattered erythematous papules on the upper chest Abdomen:no abnormalities noted. Nails: no abnormalities noted. Other exam notes: Palms/soles clear; no head/neck/axillary lymphadenopathy. Results & Data Vital Signs (Past 12 Hours) Vital Signs Temp Pulse Pulse Resp BP Pulse Ox O2 Del Method 06/08/23 15:58 88 06/08/23 15:33 36.6 C 84 16 121/73 95 Room Air 06/08/23 12:04 37.1 C 89 16 116/70 96 Room Air 06/08/23 08:28 82 06/08/23 07:52 36.9 C 78 16 129/85 94 Room Air PG Care Time/CCT Total # of Minutes Spent Total Time Spent with Patient: Total time spent is greater than 50% in coordination of care (as documented) at patient's floor/unit and/or counseling patient: Coding Level of Care Code 33756 IN/OBS CONSULT LVL 3,45M Diagnoses Stasis dermatitis I87.2 Adverse effect of drug, initial encounter T50.905A Encounter type: initial encounter (2) Adverse reaction to drug Encounter type: initial encounter Qualified Code(s): T50.905A - Adverse effect of unspecified drugs, medicaments and biological substances, initial encounter
--- NOTE | 2023-06-08 16:42 | Hospitalist Progress Note ---
Date of Service June 08, 2023 Assessment & Plan (1) Rash: Plan: 68-year-old male with past medical history significant for kidney stones, eczema, inguinal hernia, hepatitis C virus, prostate cancer, arthritis, glaucoma comes from [facility] because of extensive skin rash and lower extremity edema. About 10-15 days ago he developed edema of the lower extremity more in right than the left lower extremity. Initially thought to be cellulitis and prescribed clindamycin. As was not getting better he came to the ER on June 01. Right lower extremity Doppler was negative for DVT in the ER. He was discharged back to [facility] on Lasix. In the [facility] again clindamycin was changed to Bactrim. On starting Bactrim patient developed rash. Bactrim was stopped and Lasix was also changed to spironolactone. And was prescribed Levaquin. Prednisone was also started. But the rash continued to spread involving most of the body so he was sent back here. Patient has swelling of the lower extremities right more than the left lower extremity. This rash is somewhat more extensive in lower extremity with some crusting seen. Also has some significant rash in the upper extremity and the face. Some rash also seen on the trunk region. Several small macules with pustules also seen. Patient complains of pain in lower extremity. Denies any fevers. No headache. One he felt dizzy and short of breath. Currently no shortness of breath. No chest pain. No cough. No painful swallowing. Appetite is okay. Eating and drinking okay. No nausea. No abdominal pain. Normal bowel and bladder movements. Is ambulating okay. Hemodynamics are okay. Extensive generalized rash Maculopapular with a few blisters mainly involving the extremities and face Likely from drugs-could be sulfa On labs no eosinophilia seen Received clindamycin, Bactrim, Levaquin as an outpatient over 2 to 3 weeks timeframe Will hold Levaquin, prednisone and spironolactone which were started recently and monitor Has been getting Benadryl and given 1 dose of Solu-Medrol today Please see the pictures to evaluate the wounds/rash Appreciate dermatology input and recommendation Has been improving overall with decreasing of the rash, redness and swelling of the face Will continue Benadryl as needed and steroid as prescribed RAYMOND Presented with creatinine 1.5 Holding spironolactone Avoid nephrotoxic agents Gentle fluids Kidney function has been normalized Advised to drink more fluid Kidney function remains stable Lower extremity edema Right lower Doppler was negative for DVT recently Echo of the heart showed-LV ejection fraction 60 to 65%, there is mild mitral regurgitation, there is mild tricuspid regurgitation, Doppler findings do not suggest pulmonary hypertension, normal LV relaxation Will consider CT abdomen pelvis when patient is more stable for any compressive lesions Will hold for any Lasix now Advised to elevate the legs over a pillow while lying down Glaucoma Continue home eyedrops DVT prophylaxis Heparin subcu Disposition Med/telemetry Full code Admission and Anticipated Discharge Date Admission Date: June 06, 2023 Subjective 06/07/2023 The patient was seen and examined in medical telemetry unit He has been complaining of swelling of the face and itchiness involving all over Denies any chest pain, palpitation or shortness of breath No fever and or chills 06/08/2019 Patient was seen and examined in medical telemetry unit His rash has improved a lot Swelling of the face is diminished, erythema has been improving Itchiness is down too Review of Systems Review of Systems: All systems reviewed and are unremarkable except as noted below Physical Exam Physical Exam: Lying in bed comfortably Constitutional: well developed, well nourished, + ill appearing and + obese Eyes: PERRL, conjunctivae normal, anicteric sclerae ENMT: external ear and nose normal, oropharynx normal Neck: trachea midline, no thyromegaly Respiratory: no respiratory distress Auscultation: lungs clear to auscultation bilaterally Cardiovascular: Rate/Rhythm: regular rate and regular rhythm; not tachycardic Heart Sounds: normal S1 and normal S2; no murmur Extremities: + edema (Bilateral leg edema 1+ seems to be chronic) Gastrointestinal (Abdomen): Inspection/Auscultation: normal bowel sounds; abdomen not distended Percussion/Palpation: abdomen soft; abdomen nontender Skin: Generalized maculopapular and blistering lesions-have been improving Neurologic: normal touch/pain/proprioception and moves all extremities; no focal motor deficits Psychiatric: A+Ox3, euthymic affect Lymphatic: no cervical or axillary lymphadenopathy Results & Data Results & Data Vital Signs (Past 12 Hours) Vital Signs Temp Pulse Pulse Resp BP Pulse Ox O2 Del Method 06/08/23 15:58 88 06/08/23 15:33 36.6 C 84 16 121/73 95 Room Air 06/08/23 12:04 37.1 C 89 16 116/70 96 Room Air 06/08/23 08:28 82 06/08/23 07:52 36.9 C 78 16 129/85 94 Room Air Laboratory Results Short CBC 06/08/23 Range/Units 05:40 WBC 12.23 H (4.8-10.8) K/ul Hgb 15.3 (14.0-18.0) g/dl Hct 44.5 (42.0-52.0) % Plt Count 280 (130-400) K/uL BMP 06/08/23 05:40 Sodium 138 Potassium 4.2 Chloride 109 H Carbon Dioxide 25 BUN 16 Creatinine 0.96 Glucose 114 H Calcium 7.9 L Medications Administered Current Inpatient Medications Acetaminophen (Acetaminophen 325 Mg Tab) 650 mg PO Q4H PRN PRN Reason: Pain or Fever Stop: 07/06/23 08:56 Last Admin: 06/07/23 09:52 Dose: 650 mg Aspirin (Aspirin 81 Mg Ectab) 81 mg PO DAILY MARJORIE Stop: 07/06/23 08:59 Last Admin: 06/08/23 07:59 Dose: 81 mg Brimonidine Tartrate (Brimonidine Tartrate-P 0.15% 5 Ml Btl) 1 drops OPB BID [facility] Stop: 07/06/23 08:59 Last Admin: 06/08/23 07:59 Dose: 1 drops Clobetasol Propionate (Clobetasol Propionate 0.05% Cream 15 Gm Tube) 1 appln EXT BID [facility] Stop: 06/22/23 20:59 Diphenhydramine HCl (Diphenhydramine 50 Mg/Ml Vial) 12.5 mg IV Q6H PRN PRN Reason: Itching Stop: 07/07/23 14:06 Last Admin: 06/08/23 16:29 Dose: 12.5 mg Dorzolamide/Timolol (Dorzolamide/Timolol 22.3/6.8mg/Ml 10 Ml Btl) 1 drops OPB BID MARJORIE Stop: 07/06/23 08:59 Last Admin: 06/08/23 07:59 Dose: 1 drops Heparin Sodium (Porcine) (Heparin Sod 5,000 Unit/0.5 Ml Vial) 5,000 units SQ Q8H MARJORIE Stop: 07/06/23 08:59 Last Admin: 06/08/23 16:30 Dose: 5,000 units Hydrocortisone (Hydrocortisone 2.5% Cr 30 Gm Tube) 1 appln EXT BID [facility] Stop: 06/22/23 20:59 Latanoprost (Latanoprost 0.005% Op Soln 2.5 Ml Btl) 1 drops OPB HS [facility] Stop: 07/06/23 20:59 Last Admin: 06/07/23 21:22 Dose: 1 drops Nitroglycerin (Nitroglycerin Sl 0.4 Mg/Tab Tab) 0.4 mg SL Q5M PRN PRN Reason: Chest Pain Stop: 07/06/23 08:56 Prednisone (Prednisone 20 Mg Tab) 40 mg PO DAILY [facility] Stop: 07/08/23 12:14 Last Admin: 06/08/23 12:59 Dose: 40 mg
[2023-06-08] MEDS: HYDROCORTISONE 2.5% CR 30 GM TUBE EXT SCH (21:34)
[2023-06-08] MEDS: CLOBETASOL PROPIONATE 0.05% CREAM 15 GM TUBE EXT SCH (21:34)
--- NOTE | 2023-06-09 13:46 | Hospitalist Progress Note ---
Date of Service June 09, 2023 Assessment & Plan (1) Rash: Plan: 68-year-old male with past medical history significant for kidney stones, eczema, inguinal hernia, hepatitis C virus, prostate cancer, arthritis, glaucoma comes from nursing home because of extensive skin rash and lower extremity edema. About 10-15 days ago he developed edema of the lower extremity more in right than the left lower extremity. Initially thought to be cellulitis and prescribed clindamycin. As was not getting better he came to the ER on June 01. Right lower extremity Doppler was negative for DVT in the ER. He was discharged back to nursing home on Lasix. In the nursing home again clindamycin was changed to Bactrim. On starting Bactrim patient developed rash. Bactrim was stopped and Lasix was also changed to spironolactone. And was prescribed Levaquin. Prednisone was also started. But the rash continued to spread involving most of the body so he was sent back here. Extensive generalized rash Maculopapular with a few blisters mainly involving the extremities and face Likely from drugs-could be sulfa On labs no eosinophilia seen Received clindamycin, Bactrim, Levaquin as an outpatient over 2 to 3 weeks timeframe Initially held Levaquin, prednisone and spironolactone which were started recently Has been getting Benadryl and given 1 dose of Solu-Medrol on admission, transitioned to po prednisone Dermatology consulted, appreciate recs -wound culture, unsure if ordered -Taper steroids by 10mg q4days -Clobetasol 0.05% cream BID x 2 weeks -Hydrocortisone 2.5% cream BID to face and ears x 2 weeks -antihistamine for itching -avoid sulfa drugs in the future Continue to monitor RAYMOND Presented with creatinine 1.5 Held spironolactone Avoid nephrotoxic agents Gentle fluids Cr currently wnl Lower extremity edema Right lower Doppler was negative for DVT recently Echo of the heart showed-LV ejection fraction 60 to 65%, there is mild mitral regurgitation, there is mild tricuspid regurgitation, Doppler findings do not suggest pulmonary hypertension, normal LV relaxation CT abdomen pelvis to rule out any compressive lesions- pt adamant he does not want to go back to the nursing home if not resolved Will hold diuretics for now- pt previously on treatment [facility] Possibly in setting of drug reaction, previous steroid use Continue to monitor Glaucoma Continue home eyedrops Diet: HH DVT prophylaxis: Heparin subcu Dispo: back tp nursing home once medically stable Admission and Anticipated Discharge Date Admission Date: June 06, 2023 Subjective Pt was seen with guards at bedside. concerned about lower extremity swelling. States he does not want to go back until the swelling in his lower extremities have improved. Review of Systems Review of Systems: All systems reviewed & are unremarkable except as noted in Subjective Physical Exam Physical Exam: General: Alert, oriented. No acute distress Skin: body rash noted Psych: Appropriate mood and affect Neuro: No gross deficits HEENT: NC/AT Extremities: edema in lower extremities bilaterally. Results & Data Results & Data Vital Signs (Past 12 Hours) Vital Signs Temp Pulse Pulse Resp BP Pulse Ox O2 Del Method 06/09/23 11:50 36.6 C 65 16 119/77 96 Room Air 06/09/23 07:58 36.7 C 70 16 128/74 97 Room Air 06/09/23 07:14 73 06/09/23 03:54 36.8 C 80 18 123/74 99 Room Air
[2023-06-09 18:03] LABS: Basophils # (auto) 0.03 K/uL (0.00-0.20); Basophils % (auto) 0.2 %; Eosinophils # (auto) 0.06 K/uL (0.00-0.50); Eosinophils % (auto) 0.5 %; Hematocrit (blood only) 38.2 % (42.0-52.0); Hemoglobin 13.2 g/dl (14.0-18.0); Immature Granulocytes # (auto) 0.17 K/uL (0.01-0.20); Immature Granulocytes % (auto) 1.4 %; Lymphocytes # (auto) 1.92 K/uL (1.20-3.40); Lymphocytes % (auto) 15.7 %; Mean Corpuscular Hemoglobin 31.4 pg (25.0-34.0); Mean Corpuscular Hgb Conc 34.6 g/dL (32.0-36.0); Mean Platelet Volume 9.2 fL (9.4-12.4); Monocytes # (auto) 0.55 K/uL (0.11-0.59); Monocytes % (auto) 4.5 %; Neutrophils # (auto) 9.53 K/uL (1.40-6.50); Neutrophils % (auto) 77.7 %; Platelet Count 334 K/uL (130-400); RDW Coefficient of Variation 12.5 % (11.5-14.5); RDW Standard Deviation 41.6 fL (36.4-46.3); White Blood Count 12.26 K/ul (4.8-10.8)
[2023-06-09 18:18] LABS: BUN Creatinine Ratio 14.7 (10-20); Calcium 8.3 mg/dl (8.6-10.3); Est GFR (African American) 79.8 ml/min; Est GFR (Non-African American) 68.9 ml/min
[2023-06-10 08:07] LABS: Calcium 8.2 mg/dl (8.6-10.3); Magnesium 2.2 mg/dl (1.7-2.4); Potassium 3.7 mmol/L (3.5-5.1)
[2023-06-10 08:23] LABS: BUN Creatinine Ratio 16.7 (10-20); Creatinine Clr Calc Pharmacy 72.6 ml/min; Est GFR (African American) 93.1 ml/min; Est GFR (Non-African American) 80.3 ml/min; Phosphorus 3.6 mg/dl (2.5-4.9)
[2023-06-10 08:57] LABS: Basophils # (auto) 0.07 K/uL (0.00-0.20); Basophils % (auto) 0.4 %; Eosinophils # (auto) 0.71 K/uL (0.00-0.50); Eosinophils % (auto) 4.4 %; Hematocrit (blood only) 37.3 % (42.0-52.0); Hemoglobin 12.9 g/dl (14.0-18.0); Immature Granulocytes # (auto) 0.45 K/uL (0.01-0.20); Immature Granulocytes % (auto) 2.8 %; Lymphocytes # (auto) 3.36 K/uL (1.20-3.40); Lymphocytes % (auto) 20.6 %; Mean Corpuscular Hemoglobin 31.7 pg (25.0-34.0); Mean Corpuscular Hgb Conc 34.6 g/dL (32.0-36.0); Mean Corpuscular Volume 91.6 fL (80.0-100.0); Mean Platelet Volume 9.6 fL (9.4-12.4); Monocytes # (auto) 1.78 K/uL (0.11-0.59); Monocytes % (auto) 10.9 %; Neutrophils # (auto) 9.92 K/uL (1.40-6.50); Neutrophils % (auto) 60.9 %; Platelet Count 353 K/uL (130-400); RDW Coefficient of Variation 12.7 % (11.5-14.5); RDW Standard Deviation 42.5 fL (36.4-46.3); Red Blood Count 4.07 M/uL (4.70-6.10); White Blood Count 16.29 K/ul (4.8-10.8)
[2023-06-10] MEDS: OPTIRAY 320 100ml IV ONE (09:35)
--- NOTE | 2023-06-10 11:40 | CT Scan Report ---
ABDOMEN AND PELVIS CT WITH IV CONTRAST CT DOSE: 1228.87 mGy.cm HISTORY: Lower extremity edema. Possible intra-abdominal mass persist bilat LE edema, r/o compressiv e lesion TECHNIQUE: Multiaxial CT images of the abdomen and pelvis were performed following the IV administrat ion of 93 cc of Optiray, A dose lowering technique was utilized adhering to the principles of ALARA. COMPARISON STUDY: Bone scan 03/28/2019 FINDINGS: Clear lung bases. No free air. Unremarkable spleen, pancreas, contracted gallbladder and ad renal glands. There are a few hypodense hepatic foci suggestive of cysts measuring up to 1.3 cm. There is no hydronephrosis. Left-sided renal sinus cysts are noted. There is an intermediate attenuat ing indeterminate lesion within the inferior pole left kidney on image 143, measuring 1.5 x 1.5 x 1.4 cm. Unremarkable urinary bladder. Prostate is mildly enlarged. Coarse calcifications are noted along the inferior right paracentral pelvis either within or adjacent to the prostate apex on image 308. A therosclerosis of the aorta without aneurysm. Nonspecific mildly enlarged inguinal chain lymph nodes measure up to 1.2 cm. No bowel obstruction or bowel wall thickening. Moderate colonic fecal retention. Numerous stool-fille d loops of small bowel. No CT evidence of acute appendicitis. Unremarkable soft tissues. No compressi ve lesion of the IVC or iliac veins. Surgical clips within the pelvis compatible with prior annel dis section. No acute fracture or destructive bone lesion. Right hip arthroplasty. Grade 1 anterolisthesi s of L4 on L5 is likely degenerative. IMPRESSION: 1. No acute intra-abdominal or intrapelvic abnormality. 2. 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 No compressive lesion or co llection identified to account for the reported lower extremity edema. 3. 1.5 cm indeterminate lesion of the interpolar left kidney, suspicious for a possible renal cell ca rcinoma. Correlation with ultrasound and follow-up urology consultation recommended. 4. Additional findings as above. ACT 112: Positive. There are findings on this exam that require communication between the performing entity and the patient following Patient Test Result Information Act ([place] Act 112) guidelines. The above report was generated using voice recognition software. It may contain grammatical, syntax o r spelling errors. Dictated: 06/10/2023 10:51 AM Transcribed: 06/10/2023 11:25 KEVIN Fonseca [id number] MIKE_Orestes Electronically signed by: Yamil Swann M.D. 06/10/2023 11:38 AM
--- NOTE | 2023-06-10 12:20 | Hospitalist Progress Note ---
Date of Service June 10, 2023 Assessment & Plan (1) Rash: Plan: 68-year-old male with past medical history significant for kidney stones, eczema, inguinal hernia, hepatitis C virus, prostate cancer, arthritis, glaucoma [facility] because of extensive skin rash and lower extremity edema. About 10-15 days ago he developed edema of the lower extremity more in right than the left lower extremity. Initially thought to be cellulitis and prescribed clindamycin. As was not getting better he came to the ER on June 01. Right lower extremity Doppler was negative for DVT in the ER. He was discharged back to [facility] on Lasix. In the [facility] again clindamycin was changed to Bactrim. On starting Bactrim patient developed rash. Bactrim was stopped and Lasix was also changed to spironolactone. And was prescribed Levaquin. Prednisone was also started. But the rash continued to spread involving most of the body so he was sent back here. Extensive generalized rash Maculopapular with a few blisters mainly involving the extremities and face Likely from drugs-could be sulfa On labs no eosinophilia seen Received clindamycin, Bactrim, Levaquin as an outpatient over 2 to 3 weeks timeframe Initially held Levaquin, prednisone and spironolactone which were started recently Has been getting Benadryl and given 1 dose of Solu-Medrol on admission, transitioned to po prednisone Dermatology consulted, appreciate recs -wound culture, per Derm was taken and given to nurse for lab delivery -Taper steroids by 10mg q4days -Clobetasol 0.05% cream BID x 2 weeks -Hydrocortisone 2.5% cream BID to face and ears x 2 weeks -antihistamine for itching -avoid sulfa drugs in the future Continue to monitor RAYMOND Presented with creatinine 1.5 Held spironolactone Avoid nephrotoxic agents Gentle fluids Cr currently wnl Lower extremity edema Right lower Doppler was negative for DVT recently Echo of the heart showed-LV ejection fraction 60 to 65%, there is mild mitral regurgitation, there is mild tricuspid regurgitation, Doppler findings do not suggest pulmonary hypertension, normal LV relaxation CT abdomen pelvis to rule out any compressive lesions- pt adamant he does not want to go back to the [facility] if not resolved -no compressive lesions -did note possible RCC (see below) Will hold diuretics for now- pt previously on treatment [facility] Possibly in setting of drug reaction, previous steroid use Continue to monitor Possible Renal cell carcinoma CT abd pelvis noting possible RCC of the left kidney Pt with Hx of prostate cancer many years ago Renal US ordered for followup Urology consulted- appreciate recs Glaucoma Continue home eyedrops Diet: HH DVT prophylaxis: Heparin subcu Dispo: back tp [facility] once medically stable Admission and Anticipated Discharge Date Admission Date: June 06, 2023 Subjective pt seen with guards at bedside. Had CT abd/pelvis to rule out a mass in the abdomen compressing and giving lower extremity edema. Incidentally noted renal cell carcinoma. Pt with Hx of prostate cancer. Would like further evaluation while here. Review of Systems Review of Systems: All systems reviewed & are unremarkable except as noted in Subjective Physical Exam Physical Exam: General: Alert, oriented. No acute distress Skin: body rash noted Psych: Appropriate mood and affect Neuro: No gross deficits HEENT: NC/AT Extremities: edema in lower extremities bilaterally. Results & Data Results & Data Vital Signs (Past 12 Hours) Vital Signs Temp Pulse Pulse Resp BP Pulse Ox O2 Del Method 06/10/23 09:09 36.8 C 73 17 126/78 97 Room Air 06/10/23 09:00 Room Air 06/10/23 07:00 76 06/10/23 04:06 36.7 C 90 20 117/63 100 Room Air 06/10/23 01:15 77 Diagnostic Findings Chest X-Ray 06/06/23 16:48 XR chest 1V portable HISTORY: Shortness of breath. COMPARISON: None. FINDINGS: The lungs are clear. Cardiac silhouette is normal in size. No pleural effusions. No pneumothorax. IMPRESSION: No acute process. ACT 112: Negative or not required by law. Electronically signed by: Jesus Bravo M.D. 06/06/2023 5:28 PM Abdomen/Pelvis CT 06/10/23 09:[address] WITH IV CONTRAST CT DOSE: 1228.87 mGy.cm HISTORY: Lower extremity edema. Possible intra-abdominal mass persist bilat LE edema, r/o compressive lesion TECHNIQUE: Multiaxial CT images of the abdomen and pelvis were performed following the IV administration of 93 cc of Optiray, A dose lowering technique was utilized adhering to the principles of ALARA. COMPARISON STUDY: Bone scan 03/28/2019 FINDINGS: Clear lung bases. No free air. Unremarkable spleen, pancreas, contracted gallbladder and adrenal glands. There are a few hypodense hepatic foci suggestive of cysts measuring up to 1.3 cm. There is no hydronephrosis. Left-sided renal sinus cysts are noted. There is an intermediate attenuating indeterminate lesion within the inferior pole left kidney on image 143, measuring 1.5 x 1.5 x 1.4 cm. Unremarkable urinary bladder. Prostate is mildly enlarged. Coarse calcifications are noted along the inferior right paracentral pelvis either within or adjacent to the prostate apex on image 308. Atherosclerosis of the aorta without aneurysm. Nonspecific mildly enlarged inguinal chain lymph nodes measure up to 1.2 cm. No bowel obstruction or bowel wall thickening. Moderate colonic fecal retention. Numerous stool-filled loops of small bowel. No CT evidence of acute appendicitis. Unremarkable soft tissues. No compressive lesion of the IVC or iliac veins. 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 No acute fracture or destructive bone lesion. Right hip arthroplasty. Grade 1 anterolisthesis of L4 on L5 is likely degenerative. IMPRESSION: 1. No acute intra-abdominal or intrapelvic abnormality. 2. 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 No compressive lesion or collection identified to account for the reported lower extremity edema. 3. 1.5 cm indeterminate lesion of the interpolar left kidney, suspicious for a possible renal cell carcinoma. Correlation with ultrasound and follow-up urology consultation recommended. 4. Additional findings as above. ACT 112: Positive. There are findings on this exam that require communication between the performing entity and the patient following Patient Test Result Information Act ([place] Act 112) guidelines. The above report was generated using voice recognition software. It may contain grammatical, syntax or spelling errors. Dictated: 06/10/2023 10:51 AM Transcribed: 06/10/2023 11:25 AM Raymundo [id number] MIKE_Orestes Electronically signed by: Yamil Swann M.D. 06/10/2023 11:38 AM Renal Ultrasound 06/10/23 15:26 RENAL ULTRASOUND HISTORY: Follow left renal lesion. COMPARISON: Abdomen and pelvis CT 06/10/2023. FINDINGS: Right kidney: 9.9 cm. No hydronephrosis. Normal corticomedullary differentiation and cortical thickness. Left kidney: 11.7 cm. Small peripelvic cysts again noted. There is an 18 x 15 x 13 mm heterogeneous lesion within the lower pole the left kidney. This appears to demonstrate septations as well as solid and cystic components. No hydronephrosis. Normal corticomedullary differentiation and cortical thickness. Bladder: No bladder wall thickening. Only the left ureteral jet was identified. IMPRESSION: 1. An 18 x 15 x 13 mm heterogeneous lesion within the lower pole of the left kidney which appears to demonstrate septations as well as solid and cystic components. Therefore, this is suspicious for solid renal mass. Dedicated renal MRI can be used for confirmation. 2. Normal right kidney. ACT 112: Negative or not required by law. Electronically signed by: Jesus Bravo M.D. 06/10/2023 7:01 PM
--- NOTE | 2023-06-10 16:40 | Urology Consultation ---
<Statement entered by Jose Farrell MD - 06/10/23 21:45> I agree with the following documentation. Mr. León was incidentally found to have a renal mass on imaging, concerning for possible renal cell carcinoma. At the very least, this will require ongoing monitoring, as well as likely will need surgical removal or ablation. This will be coordinated as an outpatient. Additionally with his history of prostate cancer, we will try to obtain his most recent records and any PSAs for ongoing surveillance. Urology will sign off for now and coordinate outpatient follow up. Please call with any questions or concerns. Date of Consultation June 10, 2023 Assessment & Plan (1) Renal lesion: (2) History of prostate cancer: Plan 68 year-old male with history of prostate cancer admitted with lower extremity edema and diffuse rash. -Urology consulted for incidental finding on CT of 1.5 cm left renal lesion, suspicious for possible renal cell carcinoma. -He is asymptomatic from perspective. -No acute intervention needed during inpatient stay. -Will require continued observation in which routine imaging can be performed as outpatient. -Regarding prostate cancer - he is reportedly s/p radiation and chemo approx 20 years ago. -Recent PSA and urology records not available for review. -Will obtain recent records and PSA labs for review. -Will continue to follow as an outpatient. Urology to sign off. Will arrange outpatient follow-up with our service for continued management of renal lesion/prostate cancer. History of Present Illness Attending Physician: Audra Valero MD History of Present Illness 68-year-old male with history of kidney stones, eczema, inguinal hernia, hepatitis C, prostate cancer, glaucoma, admitted with diffuse generalized rash and lower extremity edema. Imaging was performed to evaluate for abdominal compression and was reviewed. CT notable for a 1.5 cm left renal lesion, suspicious for possible renal cell carcinoma. CT also noted calcifications along the right paracentral pelvis, either within or adjacent to the prostate apex. Labs reviewed - White count 16.29 Hgb 12.9 Creatinine 0.96 No urinalysis performed No recent PSA available He does report a history of prostate cancer approximately 20 years ago. Treated with chemo and radiation. Has yearly PSA at present per his report. I do not have any prior urology records for review. Patient was seen at bedside today. Awake, resting in bed on arrival. No acute distress. Guards at bedside. Asymptomatic from a standpoint. Denies lower urinary tract symptoms or bother. Denies hematuria or dysuria. Denies abdominal or flank pain. Denies additional concerns today Allergies Allergy/AdvReac Type Severity Reaction Status Date / Time clindamycin Allergy Intermediate ON [facility] Verified 06/06/23 01:55 [facility] sulfamethoxazole Allergy Intermediate Rash Verified 06/06/23 05:05 [From Bactrim] trimethoprim [From Bactrim] Allergy Intermediate Rash Verified 06/06/23 05:05 Home Medications Medication Instructions Recorded Confirmed Type brimonidine 0.1 % eye drops 1 drp OPB BID 08/19/22 06/06/23 History (Alphagan P) dorzolamide 22.3 mg-timolol 6.8 1 drp OPB BID 08/19/22 06/06/23 History mg/mL eye drops (Cosopt) latanoprost 0.005 % eye drops 1 drp OPB HS 08/19/22 06/06/23 History aspirin 81 mg tablet,delayed 81 mg PO BID 09/06/22 06/06/23 History release hydroxyzine pamoate 25 mg capsule 25 mg PO TID PRN PRURITUS 06/06/23 06/06/23 History levofloxacin 750 mg tablet 750 mg PO DAILY 06/06/23 06/06/23 History miconazole nitrate 2 % topical 1 applic topical BID 06/06/23 06/06/23 History cream prednisone 20 mg tablet 0 mg PO DAILY 06/06/23 06/06/23 History spironolactone 25 mg tablet 25 mg PO BID 06/06/23 06/06/23 History vitamin A and D 1 applic topical BID 06/06/23 06/06/23 History Patient History Medical History (Updated 06/10/23 @ 16:37 by KADEEM Reza) Stasis dermatitis History of kidney stones Eczema Inguinal hernia HCV (hepatitis C virus) Prostate cancer no other details listed Constipation Arthritis Glaucoma (increased eye pressure) Surgical History Hx of hernia repair Social History Smoking Status: Former smoker Tobacco Type: Cigarettes Preferred Language: Maltese Communication Ability: Effective Filler Shaker Required: No Beliefs That Will Affect Care: None Current Living Situation: Other Current Living Situation Comment: [facility] Feels Safe at Home: Yes Assistive Devices: None Review of Systems Review of Systems: All systems reviewed & are unremarkable except as noted in HPI & below Physical Exam Constitutional: no acute distress Neck: normal visual inspection Respiratory: no respiratory distress and no labored breathing Musculoskeletal: Head/Neck/Chest: normocephalic Neurologic: awake Psychiatric: A+Ox3, euthymic affect Genitourinary: Urine is clear yellow in urinal Results & Data Vital Signs (Past 12 Hours) Vital Signs Temp Pulse Pulse Resp BP Pulse Ox O2 Del Method 06/10/23 15:51 36.8 C 80 20 122/77 96 Room Air 06/10/23 14:00 83 06/10/23 11:37 36.8 C 90 18 138/84 98 Room Air 06/10/23 09:09 36.8 C 73 17 126/78 97 Room Air 06/10/23 09:00 Room Air 06/10/23 07:00 76 PG Care Time/CCT Total # of Minutes Spent Total Time Spent with Patient: Total time spent is greater than 50% in coordination of care (as documented) at patient's floor/unit and/or counseling patient: Coding Level of Care Code 25972 INT INP/OBS CARE 2/55MIN Diagnoses Renal lesion N28.9 History of prostate cancer Z85.46
--- NOTE | 2023-06-10 19:03 | Ultrasound Report ---
RENAL ULTRASOUND HISTORY: Follow left renal lesion. COMPARISON: Abdomen and pelvis CT 06/10/2023. FINDINGS: Right kidney: 9.9 cm. No hydronephrosis. Normal corticomedullary differentiation and cortical thickne ss. Left kidney: 11.7 cm. Small peripelvic cysts again noted. There is an 18 x 15 x 13 mm heterogeneous l esion within the lower pole the left kidney. This appears to demonstrate septations as well as solid and cystic components. No hydronephrosis. Normal corticomedullary differentiation and cortical thickn ess. Bladder: No bladder wall thickening. Only the left ureteral jet was identified. IMPRESSION: 1. An 18 x 15 x 13 mm heterogeneous lesion within the lower pole of the left kidney which appears to demonstrate septations as well as solid and cystic components. Therefore, this is suspicious for sundar d renal mass. Dedicated renal MRI can be used for confirmation. 2. Normal right kidney. ACT 112: Negative or not required by law. Electronically signed by: Jesus Bravo M.D. 06/10/2023 7:01 PM
[2023-06-11 07:35] LABS: Basophils % (auto) 0.5 %; Eosinophils % (auto) 3.3 %; Hematocrit (blood only) 38.1 % (42.0-52.0); Hemoglobin 13.2 g/dl (14.0-18.0); Immature Granulocytes % (auto) 3.1 %; Mean Corpuscular Hemoglobin 31.7 pg (25.0-34.0); Mean Corpuscular Hgb Conc 34.6 g/dL (32.0-36.0); Mean Corpuscular Volume 91.6 fL (80.0-100.0); Mean Platelet Volume 9.3 fL (9.4-12.4); Monocytes % (auto) 7.9 %; Neutrophils # (auto) 10.63 K/uL (1.40-6.50); Neutrophils % (auto) 65.2 %; Platelet Count 292 K/uL (130-400); RDW Coefficient of Variation 12.8 % (11.5-14.5); RDW Standard Deviation 42.5 fL (36.4-46.3); Red Blood Count 4.16 M/uL (4.70-6.10); White Blood Count 16.32 K/ul (4.8-10.8)
[2023-06-11 07:36] LABS: Basophils # (auto) 0.08 K/uL (0.00-0.20); Eosinophils # (auto) 0.54 K/uL (0.00-0.50); Immature Granulocytes # (auto) 0.51 K/uL (0.01-0.20); Lymphocytes # (auto) 3.27 K/uL (1.20-3.40); Monocytes # (auto) 1.29 K/uL (0.11-0.59); Nucleated RBC # (auto) 0.03 K/uL (0.00-0.12); Nucleated RBC % (auto) 0.2 %
[2023-06-11 08:10] LABS: Calcium 8.3 mg/dl (8.6-10.3); Creatinine Clr Calc Pharmacy 79.6 ml/min; Est GFR (African American) 88.6 ml/min; Est GFR (Non-African American) 76.5 ml/min; Magnesium 2.1 mg/dl (1.7-2.4); Phosphorus 3.4 mg/dl (2.5-4.9); Potassium 3.3 mmol/L (3.5-5.1)
[2023-06-11] MEDS: POTASSIUM CHLORIDE CRTAB 20 MEQ TABCR PO STA (11:27)
--- NOTE | 2023-06-11 13:25 | Hospitalist Progress Note ---
Date of Service June 11, 2023 Assessment & Plan (1) Rash: Plan: 68-year-old male with past medical history significant for kidney stones, eczema, inguinal hernia, hepatitis C virus, prostate cancer, arthritis, glaucoma comes from care home because of extensive skin rash and lower extremity edema. About 10-15 days ago he developed edema of the lower extremity more in right than the left lower extremity. Initially thought to be cellulitis and prescribed clindamycin. As was not getting better he came to the ER on June 01. Right lower extremity Doppler was negative for DVT in the ER. He was discharged back to care home on Lasix. In the care home again clindamycin was changed to Bactrim. On starting Bactrim patient developed rash. Bactrim was stopped and Lasix was also changed to spironolactone. And was prescribed Levaquin. Prednisone was also started. But the rash continued to spread involving most of the body so he was sent back here. Extensive generalized rash Maculopapular with a few blisters mainly involving the extremities and face Likely from drugs-could be sulfa On labs no eosinophilia seen Received clindamycin, Bactrim, Levaquin as an outpatient over 2 to 3 weeks timeframe Initially held Levaquin, prednisone and spironolactone which were started recently Has been getting Benadryl and given 1 dose of Solu-Medrol on admission, transitioned to po prednisone Dermatology consulted, appreciate recs -wound culture, per Derm was taken and given to nurse for lab delivery. Reswabbed on 06/10. -Taper steroids by 10mg q4days -Clobetasol 0.05% cream BID x 2 weeks -Hydrocortisone 2.5% cream BID to face and ears x 2 weeks -antihistamine for itching -avoid sulfa drugs in the future Continue to monitor improving RAYMOND Presented with creatinine 1.5 Held spironolactone Avoid nephrotoxic agents Gentle fluids Cr currently wnl Dyspnea on exertion Dizziness Episode evening of 06/10 while ambulating to bathroom Vitals stable, no increased oxygen requirement EKG ordered with NSR Chest XRAY noting cardiomegaly (appears new from chest xray on admission) Repeat BNP and trop pending Echo from 06/06 reviewed, no concern for atria or ventricle enlargement at that time Consider repeating echo based on BNP and trop levels Continue to monitor on telemetry Lower extremity edema Right lower Doppler was negative for DVT recently Echo of the heart showed-LV ejection fraction 60 to 65%, there is mild mitral regurgitation, there is mild tricuspid regurgitation, Doppler findings do not suggest pulmonary hypertension, normal LV relaxation CT abdomen pelvis to rule out any compressive lesions- pt adamant he does not want to go back to the care home if not resolved -no compressive lesions -did note possible RCC (see below) Will hold diuretics for now- 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 Per Dermatology, repeat leg wound culture which was ordered Pt's body rash with notbale dryness and improvement. Later notifed that pt had episode of JONES while ambulating with lightheadedness. Review of Systems Review of Systems: All systems reviewed & are unremarkable except as noted in Subjective Physical Exam Physical Exam: General: Alert, oriented. No acute distress Skin: body rash noted Psych: Appropriate mood and affect Neuro: No gross deficits HEENT: NC/AT Extremities: edema in lower extremities bilaterally. Results & Data Results & Data Vital Signs (Past 12 Hours) Vital Signs Temp Pulse Pulse Resp BP Pulse Ox O2 Del Method 06/11/23 11:35 36.8 C 73 18 120/72 95 Room Air 06/11/23 10:00 Room Air 06/11/23 07:40 36.8 C 71 20 129/78 97 Room Air 06/11/23 05:55 77 06/11/23 03:53 36.8 C 83 20 119/73 97 Room Air
--- NOTE | 2023-06-11 17:39 | XRay Report ---
SINGLE VIEW CHEST CLINICAL HISTORY: Dyspnea FINDINGS: An AP, portable, upright chest radiograph is compared to study dated 06/06/2023. The heart i s enlarged noting atherosclerotic calcification of the thoracic aorta. The pulmonary vasculature is n oncongested. Chronic interstitial thickening is similar to previous. There is mild dependent atelecta sis. The lungs and pleural spaces are otherwise clear. No pneumothorax is seen. The skeletal structur es appear osteopenic. The bony thorax is grossly intact. IMPRESSION: Cardiomegaly with no active disease in the chest. ACT 112: Negative or not required by law. Electronically signed by: Kyler Brandt M.D. 06/11/2023 5:38 PM
[2023-06-12 06:33] LABS: Basophils % (auto) 0.5 %; Eosinophils # (auto) 0.37 K/uL (0.00-0.50); Eosinophils % (auto) 1.9 %; Hematocrit (blood only) 39.4 % (42.0-52.0); Hemoglobin 13.6 g/dl (14.0-18.0); Immature Granulocytes # (auto) 0.98 K/uL (0.01-0.20); Lymphocytes # (auto) 3.33 K/uL (1.20-3.40); Mean Corpuscular Hemoglobin 31.6 pg (25.0-34.0); Mean Corpuscular Hgb Conc 34.5 g/dL (32.0-36.0); Mean Corpuscular Volume 91.4 fL (80.0-100.0); Mean Platelet Volume 9.3 fL (9.4-12.4); Monocytes # (auto) 2.14 K/uL (0.11-0.59); Monocytes % (auto) 10.9 %; Neutrophils # (auto) 12.69 K/uL (1.40-6.50); Neutrophils % (auto) 64.7 %; Nucleated RBC # (auto) 0.06 K/uL (0.00-0.12); Nucleated RBC % (auto) 0.3 %; Platelet Count 347 K/uL (130-400); RDW Coefficient of Variation 12.4 % (11.5-14.5); RDW Standard Deviation 41.5 fL (36.4-46.3); Red Blood Count 4.31 M/uL (4.70-6.10); White Blood Count 19.61 K/ul (4.8-10.8)
[2023-06-12 06:56] LABS: BUN Creatinine Ratio 16.1 (10-20); Calcium 8.2 mg/dl (8.6-10.3); Creatinine Clr Calc Pharmacy 85.6 ml/min; Est GFR (African American) 96.7 ml/min; Est GFR (Non-African American) 83.5 ml/min; Phosphorus 3.5 mg/dl (2.5-4.9); Potassium 3.7 mmol/L (3.5-5.1)
--- NOTE | 2023-06-12 16:52 | Hospitalist Progress Note ---
Date of Service June 12, 2023 Assessment & Plan (1) Rash: Plan: 68-year-old male with past medical history significant for kidney stones, eczema, inguinal hernia, hepatitis C virus, prostate cancer, arthritis, glaucoma comes from [facility] because of extensive skin rash and lower extremity edema. About 10-15 days ago he developed edema of the lower extremity more in right than the left lower extremity. Initially thought to be cellulitis and prescribed clindamycin. As was not getting better he came to the ER on June 01. Right lower extremity Doppler was negative for DVT in the ER. He was discharged back to [facility] on Lasix. In the [facility] again clindamycin was changed to Bactrim. On starting Bactrim patient developed rash. Bactrim was stopped and Lasix was also changed to spironolactone. And was prescribed Levaquin. Prednisone was also started. But the rash continued to spread involving most of the body so he was sent back here. Extensive generalized rash Maculopapular with a few blisters mainly involving the extremities and face Likely from drugs-could be sulfa On labs no eosinophilia seen Received clindamycin, Bactrim, Levaquin as an outpatient over 2 to 3 weeks timeframe Initially held Levaquin, prednisone and spironolactone which were started recently Has been getting Benadryl and given 1 dose of Solu-Medrol on admission, transitioned to po prednisone Dermatology consulted, appreciate recs -wound culture, per Derm was taken and given to nurse for lab delivery. Reswabbed on 06/10. -Taper steroids by 10mg q4days -Clobetasol 0.05% cream BID x 2 weeks -Hydrocortisone 2.5% cream BID to face and ears x 2 weeks -antihistamine for itching -avoid sulfa drugs in the future Continue to monitor improving RAYMOND Presented with creatinine 1.5 Held spironolactone Avoid nephrotoxic agents Gentle fluids Cr currently wnl Dyspnea on exertion Dizziness Episode evening of 06/10 while ambulating to bathroom Vitals stable, no increased oxygen requirement EKG ordered with NSR Chest XRAY noting cardiomegaly (appears new from chest xray on admission) Repeat BNP and trop wnl Echo from 06/06 reviewed, no concern for atria or ventricle enlargement at that time Consider repeating echo based on BNP and trop levels Continue to monitor on telemetry No further episodes Lower extremity edema Right lower Doppler was negative for DVT recently Echo of the heart showed-LV ejection fraction 60 to 65%, there is mild mitral regurgitation, there is mild tricuspid regurgitation, Doppler findings do not suggest pulmonary hypertension, normal LV relaxation CT abdomen pelvis to rule out any compressive lesions- pt adamant he does not want to go back to the [facility] if not resolved -no compressive lesions -did note possible RCC (see below) Will hold diuretics for now- 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 Pt's body rash with notable dryness and improvement. No further episodes of JONES or lightheadedness Review of Systems Review of Systems: All systems reviewed & are unremarkable except as noted in Subjective Physical Exam Physical Exam: General: Alert, oriented. No acute distress Skin: body rash noted Psych: Appropriate mood and affect Neuro: No gross deficits HEENT: NC/AT Extremities: edema in lower extremities bilaterally. Results & Data Results & Data Vital Signs (Past 12 Hours) Vital Signs Temp Pulse Pulse Resp BP Pulse Ox O2 Del Method 06/12/23 15:00 67 06/12/23 14:32 36.7 C 78 18 127/80 95 Room Air 06/12/23 11:59 36.7 C 77 18 107/64 96 Room Air 06/12/23 10:22 Room Air 06/12/23 07:30 68 06/12/23 07:26 36.8 C 65 18 144/90 H 97 Room Air
[2023-06-13 03:57] LABS: Hematocrit (blood only) 39.6 % (42.0-52.0); Hemoglobin 13.5 g/dl (14.0-18.0); Mean Corpuscular Hemoglobin 31.8 pg (25.0-34.0); Mean Corpuscular Hgb Conc 34.1 g/dL (32.0-36.0); Mean Corpuscular Volume 93.2 fL (80.0-100.0); Mean Platelet Volume 9.7 fL (9.4-12.4); Nucleated RBC # (auto) 0.04 K/uL (0.00-0.12); Nucleated RBC % (auto) 0.2 %; Platelet Count 293 K/uL (130-400); RDW Coefficient of Variation 12.6 % (11.5-14.5); RDW Standard Deviation 42.6 fL (36.4-46.3); Red Blood Count 4.25 M/uL (4.70-6.10); White Blood Count 21.01 K/ul (4.8-10.8)
[2023-06-13 04:23] LABS: Albumin Level 3.1 gm/dl (3.4-5.0); BUN Creatinine Ratio 18.3 (10-20); Calcium 8.2 mg/dl (8.6-10.3); Est GFR (African American) 79.8 ml/min; Est GFR (Non-African American) 68.9 ml/min; Magnesium 2.1 mg/dl (1.7-2.4)
[2023-06-13 04:31] LABS: Bilirubin,Total 0.3 mg/dl (0.2-1.0); Globulin 3.1 gm/dl (2.5-4.0); Phosphorus 3.2 mg/dl (2.5-4.9); Total Protein 6.2 gm/dl (6.0-8.3)
[2023-06-13 05:35] LABS: Basophils # (auto) 0.12 K/uL (0.00-0.20); Basophils % (auto) 0.6 %; Eosinophils # (auto) 0.21 K/uL (0.00-0.50); Immature Granulocytes % (auto) 6.2 %; Lymphocytes # (auto) 3.04 K/uL (1.20-3.40); Lymphocytes % (auto) 14.5 %; Monocytes # (auto) 2.43 K/uL (0.11-0.59); Monocytes % (auto) 11.6 %; Neutrophils # (auto) 13.91 K/uL (1.40-6.50); Neutrophils % (auto) 66.1 %; Toxic Vacuolation 1+
[2023-06-13] MEDS: predniSONE 10 MG TABLET PO SCH (09:37)
--- NOTE | 2023-06-13 13:39 | Hospitalist Progress Note ---
Date of Service June 13, 2023 Assessment & Plan (1) Rash: Plan: 68-year-old male with past medical history significant for kidney stones, eczema, inguinal hernia, hepatitis C virus, prostate cancer, arthritis, glaucoma comes from [facility] living because of extensive skin rash and lower extremity edema. About 10-15 days ago he developed edema of the lower extremity more in right than the left lower extremity. Initially thought to be cellulitis and prescribed clindamycin. As was not getting better he came to the ER on June 01. Right lower extremity Doppler was negative for DVT in the ER. He was discharged back to senior living on Lasix. In the senior living again clindamycin was changed to Bactrim. On starting Bactrim patient developed rash. Bactrim was stopped and Lasix was also changed to spironolactone. And was prescribed Levaquin. Prednisone was also started. But the rash continued to spread involving most of the body so he was sent back here. pt is currently stable for discharge back to the senior living. Extensive generalized rash Maculopapular with a few blisters mainly involving the extremities and face Likely from drugs-could be sulfa On labs no eosinophilia seen Received clindamycin, Bactrim, Levaquin as an outpatient over 2 to 3 weeks timeframe Initially held Levaquin, prednisone and spironolactone which were started recently Has been getting Benadryl and given 1 dose of Solu-Medrol on admission, transitioned to po prednisone Dermatology consulted, appreciate recs -wound culture, per Derm was taken and given to nurse for lab delivery. Reswabbed on 06/10-NGTD -Taper steroids by 10mg q4days, currently on 30mg daily 02/11 -Clobetasol 0.05% cream BID x 2 weeks -Hydrocortisone 2.5% cream BID to face and ears x 2 weeks -antihistamine for itching -avoid sulfa drugs in the future Continue to monitor improving RAYMOND Presented with creatinine 1.5 Held spironolactone Avoid nephrotoxic agents Gentle fluids Cr currently wnl Dyspnea on exertion Dizziness Episode evening of 06/10 while ambulating to bathroom Vitals stable, no increased oxygen requirement EKG ordered with NSR Chest XRAY noting cardiomegaly (appears new from chest xray on admission) Repeat BNP and trop wnl Echo from 06/06 reviewed, no concern for atria or ventricle enlargement at that time Consider repeating echo based on BNP and trop levels Continue to monitor on telemetry No further episodes Lower extremity edema Right lower Doppler was negative for DVT recently Echo of the heart showed-LV ejection fraction 60 to 65%, there is mild mitral r egurgitation, there is mild tricuspid regurgitation, Doppler findings do not suggest pulmonary hypertension, normal LV relaxation CT abdomen pelvis to rule out any compressive lesions- pt adamant he does not want to go back to the senior living if not resolved -no compressive lesions -did note possible RCC (see below) Will hold diuretics for now- 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 Pt's body rash with notable dryness and improvement. Concerned that he might be moved to another retirement based on PT/OT recs. Worked on PT/OT recs. No further episodes of JONES or lightheadedness Review of Systems Review of Systems: All systems reviewed & are unremarkable except as noted in Subjective Physical Exam Physical Exam: General: Alert, oriented. No acute distress Skin: body rash noted Psych: Appropriate mood and affect Neuro: No gross deficits HEENT: NC/AT Extremities: edema in lower extremities bilaterally. Results & Data Results & Data Vital Signs (Past 12 Hours) Vital Signs Temp Pulse Pulse Resp BP Pulse Ox O2 Del Method 06/13/23 11:53 36.6 C 67 18 124/80 95 Room Air 06/13/23 08:09 Room Air 06/13/23 07:43 36.8 C 67 18 145/85 H 95 Room Air 06/13/23 07:30 67
--- NOTE | 2023-06-13 22:04 | Electrocardiogram Report ---
Test Reason : Blood Pressure : / mmHG Vent. Rate : 075 BPM Atrial Rate : 075 BPM P-R Int : 162 ms QRS Dur : 092 ms QT Int : 382 ms P-R-T Axes : 063 015 044 degrees QTc Int : 426 ms Normal sinus rhythm Normal ECG When compared with ECG of 06-JUN-2023 17:18, No significant change was found Confirmed by Lester Rao [id number] on 06/13/2023 10:04:30 PM Referred By: [facility] Confirmed By:Lester Rao
[2023-06-14 06:42] LABS: Hematocrit (blood only) 40.6 % (42.0-52.0); Hemoglobin 13.7 g/dl (14.0-18.0); Mean Corpuscular Hemoglobin 31.4 pg (25.0-34.0); Mean Corpuscular Hgb Conc 33.7 g/dL (32.0-36.0); Mean Corpuscular Volume 92.9 fL (80.0-100.0); Mean Platelet Volume 9.1 fL (9.4-12.4); Nucleated RBC # (auto) 0.04 K/uL (0.00-0.12); Nucleated RBC % (auto) 0.2 %; Platelet Count 315 K/uL (130-400); RDW Coefficient of Variation 12.8 % (11.5-14.5); RDW Standard Deviation 43.4 fL (36.4-46.3); Red Blood Count 4.37 M/uL (4.70-6.10); White Blood Count 18.95 K/ul (4.8-10.8)
[2023-06-14 06:57] LABS: Albumin Level 3.2 gm/dl (3.4-5.0); BUN Creatinine Ratio 20.4 (10-20); Bilirubin,Total 0.4 mg/dl (0.2-1.0); Calcium 8.3 mg/dl (8.6-10.3); Creatinine Clr Calc Pharmacy 80.7 ml/min; Est GFR (African American) 90.8 ml/min; Est GFR (Non-African American) 78.4 ml/min; Globulin 3.1 gm/dl (2.5-4.0); Magnesium 2.1 mg/dl (1.7-2.4); Phosphorus 3.5 mg/dl (2.5-4.9); Potassium 3.8 mmol/L (3.5-5.1); Total Protein 6.3 gm/dl (6.0-8.3)
[2023-06-14 07:09] LABS: Basophils # (auto) 0.12 K/uL (0.00-0.20); Basophils % (auto) 0.6 %; Eosinophils # (auto) 0.17 K/uL (0.00-0.50); Eosinophils % (auto) 0.9 %; Immature Granulocytes # (auto) 1.31 K/uL (0.01-0.20); Immature Granulocytes % (auto) 6.9 %; Lymphocytes # (auto) 2.94 K/uL (1.20-3.40); Lymphocytes % (auto) 15.5 %; Monocytes # (auto) 1.63 K/uL (0.11-0.59); Monocytes % (auto) 8.6 %; Neutrophils # (auto) 12.78 K/uL (1.40-6.50); Neutrophils % (auto) 67.5 %
--- NOTE | 2023-06-14 10:49 | Discharge Summary ---
Discharge Summary Date of Service June 14, 2023 Notes For Next Care Provider Please ensure followup with Urology for left kidney mass Medication Changes From Visit Per Dermatology: 1. Prednisone 30mg taper -Prednisone 30mg daily for 2 more days then decrease dose by 10mg every 4 days until done 2. Hydrocortisone 2.5% cream BID to rash on face for 2 weeks (pt started treatment on 06/07) 3. Clobetasol propionate 0.05% cream BID to rash on rest of body for 2 weeks (pt started treatment on 06/07) Admission HPI Per Admitting Provider 68-year-old male with past medical history significant for kidney stones, eczema, inguinal hernia, hepatitis C virus, prostate cancer, arthritis, glaucoma comes from [facility] because of extensive skin rash and lower extremity edema. About 10-15 days ago he developed edema of the lower extremity more in right than the left lower extremity. Initially thought to be cellulitis and presc ribed clindamycin. As was not getting better he came to the ER on June 01. Right lower extremity Doppler was negative for DVT in the ER. He was discharged back to [facility] on Lasix. In the [facility] again clindamycin was changed to Bactrim. On starting Bactrim patient developed rash. Bactrim was stopped and Lasix was also changed to spironolactone. And was prescribed Levaquin. Prednisone was also started. But the rash continued to spread involving most of the body so he was sent back here. Patient has swelling of the lower extremities right more than the left lower extremity. This rash is somewhat more extensive in lower extremity with some crusting seen. Also has some significant rash in the upper extremity and the face. Some rash also seen on the trunk region. Several small macules with pustules also seen. Patient complains of pain in lower extremity. Denies any fevers. No headache. One he felt dizzy and short of breath. Currently no shortness of breath. No chest pain. No cough. No painful swallowing. Appetite is okay. Eating and drinking okay. No nausea. No abdominal pain. Normal bowel and bladder movements. Is ambulating okay. Hemodynamics are okay. Past medical history as mentioned above Past surgical history. Patient states he had surgery for prostate cancer 20 years ago. Had a surgery in right hip region. Social history. States he is quit smoking 4 years ago.used to smoke about 2 cigarettes daily. Denies any alcohol use. Family history. Has cancer in the family. Admission Exam Per Admitting Provider General- Not in distress. Head- atraumatic Eyes- PERRL. ENT- oropharynx clear Neck- supple, no JVD. Lungs- clear to auscultation no wheezing or crackles. Heart- regular rate and rhythm; no murmur, no gallop. Abdomen- normal bowel sounds, soft, nontender, no distension. Extremities- b/l lower extremity edema present right > left Neuro- alert, oriented PERRL, no facial palsy; no dysarthria; moves extremities. Skin- extensive skin maculopapular rash seen in lower extremity with crusting seen. Also rash on the face, upper extremity and trunk seen. Principal Dx & Hospital Course #1 = Principal Diagnosis (1) Rash: 68-year-old male with past medical history significant for kidney stones, eczema, inguinal hernia, hepatitis C virus, prostate cancer, arthritis, glaucoma comes from [facility] because of extensive skin rash and lower extremity edema. About 10-15 days ago he developed edema of the lower extremity more in right than the left lower extremity. Initially thought to be cellulitis and prescribed clindamycin. As was not getting better he came to the ER on June 01. Right lower extremity Doppler was negative for DVT in the ER. He was discharged back to [facility] on Lasix. In the [facility] again clindamycin was changed to Bactrim. On starting Bactrim patient developed rash. Bactrim was stopped and Lasix was also changed to spironolactone. And was prescribed Levaquin. Prednisone was also started. But the rash continued to spread involving most of the body so he was sent back to [facility]. Extensive generalized rash Maculopapular with a few blisters mainly involving the extremities and face Likely from drugs-could be sulfa related On labs no eosinophilia seen Received clindamycin, Bactrim, Levaquin as an outpatient over 2 to 3 weeks timeframe Initially held Levaquin, prednisone and spironolactone which were started recently Has been getting Benadryl and given 1 dose of Solu-Medrol on admission, transitioned to po prednisone Dermatology consulted, appreciate recs -wound culture, per Derm was taken and given to nurse for lab delivery. Reswabbed on 06/10-NGTD -Taper steroids by 10mg q4days, discharged on 30mg daily for 2 more days before further taper down. -Clobetasol 0.05% cream BID x 2 weeks (started on 06/07) -Hydrocortisone 2.5% cream BID to face and ears x 2 weeks (started on 06/07) -antihistamine for itching -avoid sulfa drugs in the future PCP followup RAYMOND Presented with creatinine 1.5 Held spironolactone and discontinued on discharge Avoid nephrotoxic agents Gentle fluids Cr wnl on discharge Dyspnea on exertion Dizziness Episode evening of 06/10 while ambulating to bathroom Vitals stable, no increased oxygen requirement EKG ordered with NSR Chest XRAY noting cardiomegaly Repeat BNP and trop wnl Echo from 06/06 reviewed, no concern for atria or ventricle enlargement at that time PCP followup Lower extremity edema Right lower Doppler was negative for DVT recently Echo of the heart showed-LV ejection fraction 60 to 65%, there is mild mitral regurgitation, there is mild tricuspid regurgitation, Doppler findings do not suggest pulmonary hypertension, normal LV relaxation CT abdomen pelvis to rule out any compressive lesions -no compressive lesions -did note possible left RCC (see below) Held and discontinued diuretics Possibly in setting of drug reaction, previous steroid use Improved on discharge PCP follow up Possible Renal cell carcinoma CT abd pelvis noting possible RCC of the left kidney Pt with Hx of prostate cancer many years ago Renal US ordered for followup, confirmed left renal mass Urology consulted- appreciate recs. Per Urology, recommendations as follows: -No acute intervention needed during inpatient stay. -Will require continued observation in which routine imaging can be performed as outpatient. -Regarding prostate cancer - he is reportedly s/p radiation and chemo approx 20 years ago. -Recent PSA and urology records not available for review. -Will obtain recent records and PSA labs for review. -Will continue to follow as an outpatient. Please ensure Urology followup after discharge PCP followup as well Glaucoma Continue home eyedrops Discharge Exam General: Alert, oriented. No acute distress Skin: improved body rash noted Psych: Appropriate mood and affect Neuro: No gross deficits HEENT: NC/AT Extremities: improved edema in lower extremities bilaterally. Updated Medication List Medication Instructions Recorded Confirmed Type brimonidine 0.1 % eye drops 1 drp OPB BID 08/19/22 06/06/23 History (Alphagan P) dorzolamide 22.3 mg-timolol 6.8 1 drp OPB BID 08/19/22 06/06/23 History mg/mL eye drops (Cosopt) latanoprost 0.005 % eye drops 1 drp OPB HS 08/19/22 06/06/23 History aspirin 81 mg tablet,delayed 81 mg PO BID 09/06/22 06/06/23 History release hydroxyzine pamoate 25 mg capsule 25 mg PO TID PRN PRURITUS 06/06/23 06/06/23 History miconazole nitrate 2 % topical 1 applic topical BID 06/06/23 06/06/23 History cream vitamin A and D 1 applic topical BID 06/06/23 06/06/23 History clobetasol 0.05 % topical cream 1 applic EXT BID #60 grams 06/14/23 Rx hydrocortisone 2.5 % topical cream 1 applic EXT BID #30 grams 06/14/23 Rx prednisone 10 mg tablet See Rx Instructions .Route 06/14/23 Rx .COMPLEX #18 tabs Hospital Stay Data Consultations 06/06/23 04:04 ED Decision to Admit Stat 06/07/23 14:42 Consult Dermatology Routine 06/10/23 15:27 Consult Urology Routine Diagnostic Imagining Performed 06/10/23 09:00 CT Abd and Pelvis [CT abd pelvis IV con only] Routine 06/10/23 15:26 US renal/blad retro comp Urgent Chest X-Ray 06/06/23 16:48 XR chest 1V portable HISTORY: Shortness of breath. COMPARISON: None. FINDINGS: The lungs are clear. Cardiac silhouette is normal in size. No pleural effusions. No pneumothorax. IMPRESSION: No acute process. ACT 112: Negative or not required by law. Electronically signed by: Jesus Bravo M.D. 06/06/2023 5:28 PM Abdomen/Pelvis CT 06/10/23 09:[address] WITH IV CONTRAST CT DOSE: 1228.87 mGy.cm HISTORY: Lower extremity edema. Possible intra-abdominal mass persist bilat LE edema, r/o compressive lesion TECHNIQUE: Multiaxial CT images of the abdomen and pelvis were performed following the IV administration of 93 cc of Optiray, A dose lowering technique was utilized adhering to the principles of ALARA. COMPARISON STUDY: Bone scan 03/28/2019 FINDINGS: Clear lung bases. No free air. Unremarkable spleen, pancreas, contracted gallbladder and adrenal glands. There are a few hypodense hepatic foci suggestive of cysts measuring up to 1.3 cm. There is no hydronephrosis. Left-sided renal sinus cysts are noted. There is an intermediate attenuating indeterminate lesion within the inferior pole left kidney on image 143, measuring 1.5 x 1.5 x 1.4 cm. Unremarkable urinary bladder. Prostate is mildly enlarged. Coarse calcifications are noted along the inferior right paracentral pelvis either within or adjacent to the prostate apex on image 308. Atherosclerosis of the aorta without aneurysm. Nonspecific mildly enlarged inguinal chain lymph nodes measure up to 1.2 cm. No bowel obstruction or bowel wall thickening. Moderate colonic fecal retention. Numerous stool-filled loops of small bowel. No CT evidence of acute appendicitis. Unremarkable soft tissues. No compressive lesion of the IVC or iliac veins. 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 No acute fracture or destructive bone lesion. Right hip arthroplasty. Grade 1 anterolisthesis of L4 on L5 is likely degenerative. IMPRESSION: 1. No acute intra-abdominal or intrapelvic abnormality. 2. 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 No co mpressive lesion or collection identified to account for the reported lower extremity edema. 3. 1.5 cm indeterminate lesion of the interpolar left kidney, suspicious for a possible renal cell carcinoma. Correlation with ultrasound and follow-up urology consultation recommended. 4. Additional findings as above. ACT 112: Positive. There are findings on this exam that require communication between the performing entity and the patient following Patient Test Result Information Act ([place] Act 112) guidelines. The above report was generated using voice recognition software. It may contain grammatical, syntax or spelling errors. Dictated: 06/10/2023 10:51 AM Transcribed: 06/10/2023 11:25 AM Raymundo [id number] [email or web address] Electronically signed by: Yamil Swann M.D. 06/10/2023 11:38 AM Renal Ultrasound 06/10/23 15:26 RENAL ULTRASOUND HISTORY: Follow left renal lesion. COMPARISON: Abdomen and pelvis CT 06/10/2023. FINDINGS: Right kidney: 9.9 cm. No hydronephrosis. Normal corticomedullary differentiation and cortical thickness. Left kidney: 11.7 cm. Small peripelvic cysts again noted. There is an 18 x 15 x 13 mm heterogeneous lesion within the lower pole the left kidney. This appears to demonstrate septations as well as solid and cystic components. No hydronephrosis. Normal corticomedullary differentiation and cortical thickness. Bladder: No bladder wall thickening. Only the left ureteral jet was identified. IMPRESSION: 1. An 18 x 15 x 13 mm heterogeneous lesion within the lower pole of the left kidney which appears to demonstrate septations as well as solid and cystic components. Therefore, this is suspicious for solid renal mass. Dedicated renal MRI can be used for confirmation. 2. Normal right kidney. ACT 112: Negative or not required by law. Electronically signed by: Jesus Bravo M.D. 06/10/2023 7:01 PM Chest X-Ray 06/11/23 17:04 SINGLE VIEW CHEST CLINICAL HISTORY: Dyspnea FINDINGS: An AP, portable, upright chest radiograph is compared to study dated 06/06/2023. The heart is enlarged noting atherosclerotic calcification of the thoracic aorta. The pulmonary vasculature is noncongested. Chronic interstitial thickening is similar to previous. There is mild dependent atelectasis. The lungs and pleural spaces are otherwise clear. No pneumothorax is seen. The skeletal structures appear osteopenic. The bony thorax is grossly intact. IMPRESSION: Cardiomegaly with no active disease in the chest. ACT 112: Negative or not required by law. Electronically signed by: Kyler Brandt M.D. 06/11/2023 5:38 PM Discharge Instructions Given to Patient (Per Discharging Provider) Mr. León, We are transferring you back to [facility] facility. We have let the [facility] know about your medications and your need for followup with Urology. Please keep followup with your [facility] providers after discharge. Please keep close follow up with your primary care provider after discharge. It was a pleasure taking care of you while you were here. Total Time Total Time Spent Total Time Spent (In Minutes): 75
== END 2023-06-14 12:53 | DRG 607 ==
LOC: ED 01:17 → SUATTDRO 04:41 → 2N 04:41 → 2W 06-07 19:46

== ENCOUNTER 2023-08-14 18:04 | Inpatient (IN) ==
--- NOTE | 2023-08-14 18:33 | Emergency Department Note ---
Impression & Plan Cellulitis of leg, right ED Provider Note NAME: GLENROY [id number] AGE: 68 SEX: M : 1955 ARRIVES VIA: Walk-In INFORMANT: Patient, ED PROVIDER(S): Deion Bassett DO CHIEF COMPLAINT: Lower extremity swelling HPI: The patient is a 68-year-old male who presented to the emergency department for an evaluation of lower extremity swelling and pain. The patient noticed right lower extremity swelling which began a year ago after he had his hip replacement. He has been on multiple antibiotics both oral and IM and has both been admitted to our facility and placed on IV antibiotics as well as evaluation by dermatology. His symptoms especially his right leg continue to worsen. He is now having ulcerations on his body including his torso and his upper extremities. He had a steroid regimen given by dermatology. He continues to worsen and this evening the nurses [facility] sent [facility] over from the residential for further evaluation. ROS: See above HPI for pertinent positives & negatives. A total of 10 systems reviewed and were otherwise negative. PAST MEDICAL HISTORY: See Below PAST SURGICAL HISTORY: See Below FAMILY HISTORY: See Below SOCIAL HISTORY: See Below HOME MEDICATIONS: See Below ALLERGIES: See Below VITALS: See Below PHYSICAL EXAMINATION: GENERAL: Patient is awake alert in no acute distress patient is resting comfortably and showing no signs of anxiety EYES: The conjunctivae are clear. The pupils are round and reactive. EARS, NOSE, MOUTH AND THROAT: The nose is without any evidence of any deformity. NECK: The neck is nontender and supple. RESPIRATORY: Normal respiratory effort is noted there is no evidence of wheezing rhonchi or rales CARDIOVASCULAR: Regular rate and rhythm noted there no murmurs rubs or gallops normal S1 normal S2. GASTROINTESTINAL: The abdomen is soft. Abdomen is nontender. MUSCULOSKELETAL/EXTREMITIES: There is no evidence of gross deformity full range of motion is noted in the hips and shoulders. SKIN: Pedal edema was noted bilaterally right greater than left. There is diffuse erythema noted in both lower extremities right greater than left. There was no free air palpable under the skin. NEUROLOGIC: Patient is awake alert and oriented x3 MEDICAL DECISION MAKING: The patient is a 68-year-old male who presented to the emergency department from the residential for ongoing symptoms. The patient has been having problems with right lower extremity swelling. This now appears to be spreading to his left leg. The patient also notices swelling going up the right thigh. The patient had a hip replacement. This was about a year ago. Ever since that time the patient started having symptoms. The patient denies having any vomiting. He has been on antibiotics and been seen in our facility recently before. It is unclear if this is just a stasis dermatitis but now the right leg appears to be draining so the patient came to the emergency department at the request of the [facility]. I discussed the patient's laboratory results with him. He was started on IV antibiotics. I discussed his condition with the on-call [facility]ist. Triage Nursing notes reviewed. Prior medical records reviewed Vital Signs: reviewed and remarkable for no significant abnormalities Differential diagnosis: Cellulitis, abscess, MRSA infection, DVT, necrotizing fasciitis, dermatitis, drug eruption, allergic reaction, as well as other pathologies. ER treatment provided: See below Diagnostics interpreted by me: ECG: EKG was obtained in the emergency department. My interpretation is normal sinus rhythm at 78 bpm. There was no ectopy. There was no acute ST segment abnormalities noted. This was compared to a tracing from June 24, 2023. No changes were noted. Cardiac Monitoring: An order was placed for continuous cardiac monitoring. The monitor shows a rate of 70 bpm with sinus rhythm. Laboratory studies: As stated above and show below. Imaging studies: See below. Radiographic imaging was reviewed by myself Consultation(s): I discussed this case with Dr. Dobbs who is on-call for the [facility]ist group. He will evaluate the patient in the emergency department. Past Med/Surg History Problem List (Updated 08/14/23 @ 21:02 by Deion Bassett DO) Cellulitis of leg, right (Acute) Eczematous dermatitis Rash of face (Acute) Periorbital cellulitis of left eye (Acute) History of prostate cancer Renal lesion (Acute) Stasis dermatitis Rash (Acute) RAYMOND (acute kidney injury) (Acute) Adverse reaction to drug (Acute) S/P total right hip arthroplasty Osteoarthritis of right hip Encounter for pre-operative examination Medical History History of kidney stones Inguinal hernia HCV (hepatitis C virus) Prostate cancer no other details listed Constipation Arthritis Glaucoma (increased eye pressure) Surgical History Hx of hernia repair Social History Smoking Status: Former smoker Tobacco Type: Cigarettes Second Hand Exposure: No; Do You Dip or Chew Tobacco: No; Hx Alcohol Use: No Hx Substance Use: No Preferred Language: [place] Communication Ability: Effective Manager Supply Required: No Beliefs That Will Affect Care: None Current Living Situation: Alone Current Living Situation Comment: [facility] Feels Safe at Home: Yes Assistive Devices: None Allergies Allergies Allergy/AdvReac Type Severity Reaction Status Date / Time bumetanide [From Bumex] Allergy Severe Unknown Verified 08/14/23 20:51 furosemide [From Lasix] Allergy Severe Unknown Verified 08/14/23 20:51 Sulfa (Sulfonamide Allergy Severe Unknown Verified 08/14/23 20:51 Antibiotics) clindamycin Allergy Intermediate ON [facility] Verified 06/06/23 01:55 [facility] sulfamethoxazole Allergy Intermediate Rash Verified 08/14/23 20:51 [From Bactrim] trimethoprim [From Bactrim] Allergy Intermediate Rash Verified 08/14/23 20:51 Home Meds Home Medications Medication Instructions Recorded Confirmed brimonidine 0.1 % eye drops 1 drp OPB BID 08/19/22 08/14/23 (Alphagan P) dorzolamide 22.3 mg-timolol 6.8 1 drp OPB BID 08/19/22 08/14/23 mg/mL eye drops (Cosopt) latanoprost 0.005 % eye drops 1 drp OPB HS 08/19/22 08/14/23 aspirin 81 mg tablet,delayed 81 mg PO BID 09/06/22 08/14/23 release diphenhydramine HCl 50 mg tablet 50 mg PO BID 08/14/23 08/14/23 prednisone 10 mg tablet 10 mg PO DAILY 08/14/23 08/14/23 soap 1 ea topical BID 08/14/23 08/14/23 Results & Data (ED) Vital Signs Vital Signs - 24 hr 08/14/23 18:13 08/14/23 18:35 08/14/23 19:55 Temperature 36.6 C Temperature Source Skin Pulse Rate 77 Pulse Rate [Apical] 70 Pulse Rhythm [Apical] Regular Pulse Strength [Apical] Normal Respiratory Rate 15 Respiratory Effort / Characteristics Non-Labored Respiratory Depth Normal Respiratory Pattern Regular Blood Pressure [Right Arm] 132/75 Blood Pressure Mean [Right Arm] 94 Blood Pressure Position [Right Arm] Lying Pulse Oximetry 99 Oxygen Delivery Method Room Air Sepsis Recent Fever Within 48 Hours No Sepsis New/Unexplained Change in Mental Status No Sepsis Action Taken by Nursing No Action Required Home Medications Current Medication List: was personally reviewed by me Laboratory Data Attestation: I reviewed the patient's lab results. 08/14/23 19:45 08/14/23 19:45 Lab Results 08/14/23 08/14/23 Range/Units 19:37 19:45 WBC 9.65 (4.8-10.8) K/ul RBC 5.04 (4.70-6.10) M/uL Hgb 15.8 (14.0-18.0) g/dl Hct 47.1 (42.0-52.0) % MCV 93.5 (80.0-100.0) fL MCH 31.3 (25.0-34.0) pg MCHC 33.5 (32.0-36.0) g/dL RDW Std Deviation 44.4 (36.4-46.3) fL RDW Coeff of Pablo 13.2 (11.5-14.5) % Plt Count 409 H (130-400) K/uL MPV 8.7 L (9.4-12.4) fL Immature Gran % (Auto) 0.7 % Neut % (Auto) 61.6 % Lymph % (Auto) 15.6 % Hunt % (Auto) 10.9 % Eos % (Auto) 10.9 % Baso % (Auto) 0.3 % Neut # (Auto) 5.94 (1.40-6.50) K/uL Lymph # (Auto) 1.51 (1.20-3.40) K/uL Hunt # (Auto) 1.05 H (0.11-0.59) K/uL Eos # (Auto) 1.05 H (0.00-0.50) K/uL Baso # (Auto) 0.03 (0.00-0.20) K/uL Immature Gran # (Auto) 0.07 (0.01-0.20) K/uL PT 10.3 (9.0-12.0) Seconds INR 0.9 (0.9-1.1) APTT 26 (21-31) Seconds PTT Ratio 1.0 Sodium 139 (136-145) mmol/L Potassium 4.3 (3.5-5.1) mmol/L Chloride 107 (98-107) mmol/L Carbon Dioxide 27 (21-32) mmol/L Anion Gap 5 (3-11) BUN 19 (6-23) mg/dl Creatinine 1.21 (0.6-1.4) mg/dl Est Cr Clr Drug Dosing 65.0 ml/min Est GFR ( Amer) 70.4 ml/min Est GFR (Non-Af Amer) 60.7 ml/min BUN/Creatinine Ratio 15.7 (10-20) Glucose 93 (70-99(Fasting)) mg/dl Lactate 1.3 (0.4-2.0) mmol/L Calcium 9.3 (8.6-10.3) mg/dl Magnesium 2.2 (1.7-2.4) mg/dl Total Bilirubin 0.7 (0.2-1.0) mg/dl Direct Bilirubin 0.1 (0-0.2) mg/dl AST 17 (13-39) U/L ALT 17 (7-52) U/L Alkaline Phosphatase 99 (34-104) U/L Troponin I High Sens 3.1 (0-20) pg/ml Total Protein 7.6 (6.0-8.3) gm/dl Albumin 3.8 (3.4-5.0) gm/dl Administered Medications Ceftriaxone Sodium (Rocephin) 2,000 mg in 50 mls @ 100 mls/hr IV NOW STA Stop: 08/14/23 21:02 Last Admin: 08/14/23 20:46 Dose: 100 mls/hr Documented By: Imaging Data Attestation: I personally reviewed and interpreted this imaging study as follows: My Impression: 1 view chest x-ray was obtained in the emergency department. My interpretation is no free air or definite infiltrate, final report below. Radiologist's Impression: Chest X-Ray 08/14/23 18:25 XR chest 1V portable CLINICAL HISTORY: Sepsis TECHNIQUE: Single frontal radiograph of the chest was obtained. Comparison: Comparison is made to chest radiograph 06/11/2023 FINDINGS: No lines and tubes are seen. The cardiomediastinal silhouette is stable. The lungs are clear. No evidence of pleural effusion or pneumothorax. IMPRESSION: No acute abnormalities and in particular no radiographic evidence of pneumonia. ACT 112: Negative or not required by law. Electronically signed by: Benitez Dennison M.D. 08/14/2023 8:13 PM Venous Doppler Study 08/14/23 18:25 US venous doppler LE BI CLINICAL HISTORY: swelling TECHNIQUE: Bilateral lower extremity real-time compression venous ultrasound with Color Doppler imaging. Utilizing real-time ultrasonic imaging multiple real time high-resolution ultrasonic images with compression and noncompression maneuvers of the deep venous system in addition to color doppler imaging were performed from the common femoral vein through the proximal calf veins. COMPARISON: Comparison is made to Doppler ultrasound 06/02/2023 FINDINGS/IMPRESSION: Currently there is normal compressibility of the deep venous system from the common femoral vein through the proximal calf veins. No superficial venous thrombosis is identified. ACT 112: Negative or not required by law. Electronically signed by: Benitez Dennison M.D. 08/14/2023 7:36 PM Discharge Plan Visit Data Chief Complaint: Allergic Reaction Stated Complaint: ALLERGIC REACTION ED Provider: Deion Bassett Discharge Problem: Cellulitis of leg, right Patient Disposition: Being Evaluated by Hospitalist Forms Stand Alone Forms: My [facility] [employer] Prescriptions Prescriptions: No Action latanoprost 0.005 % Drops 1 drp OPB HS dorzolamide-timolol [Cosopt] 22.3-6.8 mg/mL Drops 1 drp OPB BID brimonidine [Alphagan P] 0.1 % Drops 1 drp OPB BID Rx Instructions: administer approximately 8 hours apart aspirin 81 mg Tablet,Delayed Release (Dr/Ec) 81 mg PO BID prednisone 10 mg Tablet 10 mg PO DAILY Rx Instructions: see taper instructions ...last dose 08/16/23 diphenhydramine HCl 50 mg Tablet 50 mg PO BID Baby Shampoo Shampoo 1 ea TOPICAL BID Rx Instructions: shampoo hair twie daily for head and body Referrals Referrals: Yazmin TYSON [Primary Care Provider] -
--- NOTE | 2023-08-14 19:37 | Ultrasound Report ---
US venous doppler LE BI CLINICAL HISTORY: swelling TECHNIQUE: Bilateral lower extremity real-time compression venous ultrasound with Color Doppler imagi ng. Utilizing real-time ultrasonic imaging multiple real time high-resolution ultrasonic images with compression and noncompression maneuvers of the deep venous system in addition to color doppler imagi ng were performed from the common femoral vein through the proximal calf veins. COMPARISON: Comparison is made to Doppler ultrasound 06/02/2023 FINDINGS/IMPRESSION: Currently there is normal compressibility of the deep venous system from the common femoral vein thro ugh the proximal calf veins. No superficial venous thrombosis is identified. ACT 112: Negative or not required by law. Electronically signed by: Benitez Dennison M.D. 08/14/2023 7:36 PM
[2023-08-14 19:59] LABS: Basophils # (auto) 0.03 K/uL (0.00-0.20); Basophils % (auto) 0.3 %; Eosinophils # (auto) 1.05 K/uL (0.00-0.50); Eosinophils % (auto) 10.9 %; Hematocrit (blood only) 47.1 % (42.0-52.0); Hemoglobin 15.8 g/dl (14.0-18.0); Immature Granulocytes # (auto) 0.07 K/uL (0.01-0.20); Immature Granulocytes % (auto) 0.7 %; Lymphocytes # (auto) 1.51 K/uL (1.20-3.40); Lymphocytes % (auto) 15.6 %; Mean Corpuscular Hemoglobin 31.3 pg (25.0-34.0); Mean Corpuscular Hgb Conc 33.5 g/dL (32.0-36.0); Mean Corpuscular Volume 93.5 fL (80.0-100.0); Mean Platelet Volume 8.7 fL (9.4-12.4); Monocytes # (auto) 1.05 K/uL (0.11-0.59); Monocytes % (auto) 10.9 %; Neutrophils # (auto) 5.94 K/uL (1.40-6.50); Neutrophils % (auto) 61.6 %; Platelet Count 409 K/uL (130-400); RDW Coefficient of Variation 13.2 % (11.5-14.5); RDW Standard Deviation 44.4 fL (36.4-46.3); Red Blood Count 5.04 M/uL (4.70-6.10); White Blood Count 9.65 K/ul (4.8-10.8)
--- NOTE | 2023-08-14 20:14 | XRay Report ---
XR chest 1V portable CLINICAL HISTORY: Sepsis TECHNIQUE: Single frontal radiograph of the chest was obtained. Comparison: Comparison is made to chest radiograph 06/11/2023 FINDINGS: No lines and tubes are seen. The cardiomediastinal silhouette is stable. The lungs are clear. No evid ence of pleural effusion or pneumothorax. IMPRESSION: No acute abnormalities and in particular no radiographic evidence of pneumonia. ACT 112: Negative or not required by law. Electronically signed by: Benitez Dennison M.D. 08/14/2023 8:13 PM
[2023-08-14 20:15] LABS: Albumin Level 3.8 gm/dl (3.4-5.0); BUN Creatinine Ratio 15.7 (10-20); Bilirubin Direct 0.1 mg/dl (0-0.2); Bilirubin,Total 0.7 mg/dl (0.2-1.0); Calcium 9.3 mg/dl (8.6-10.3); Est GFR (African American) 70.4 ml/min; Est GFR (Non-African American) 60.7 ml/min; Magnesium 2.2 mg/dl (1.7-2.4); Potassium 4.3 mmol/L (3.5-5.1); Total Protein 7.6 gm/dl (6.0-8.3)
[2023-08-14 20:21] LABS: Troponin I High Sensitivity 3.1 pg/ml (0-20)
[2023-08-14 20:26] LABS: INR 0.9 (0.9-1.1); Partial Thromboplastin Time 26 Seconds (21-31); Prothrombin Time 10.3 Seconds (9.0-12.0)
[2023-08-14] MEDS ORDERED: VANCOMYCIN CONSULT ACTIVE PRN (20:33)
[2023-08-14] MEDS: cefTRIAXone SODIUM 2,000 MG/50 ML BAG IV STA (20:46)
[2023-08-14 21:51] LABS: C Reactive Protein 3.02 mg/dl (0-0.5)
[2023-08-14] MEDS: VANCOMYCIN HCL 1,750 MG in SODIUM CHLORIDE 0.9% 500 ML IV ONE (22:04)
--- NOTE | 2023-08-14 23:09 | History & Physical Report ---
Date of Service August 14, 2023 Assessment & Plan (1) Impetiginous eczema: Plan: 68-year-old male who is coming from local nursing home and with past medical history significant for kidney stones, eczema, inguinal hernia, hepatitis C virus, prostate cancer, arthritis, glaucoma comes with extensive skin rash involving the lower extremities. Patient was admitted in May of this year with extensive rash and lower extremity edema and seen by dermatology and thought to be generalized eruption due to ID reaction from impetiginization of his stasis dermatitis or adverse drug direction mostly from sulfa and he was treated with clobetasol cream to extremities and hydrocortisone cream to the face and ears and antihistamine as needed for itching. At that time cultures were negative. He was discharged on prednisone taper and Clobetasone and hydrocortisone creams.He was again admitted on June 24, 2023 for the face swelling and recurrence of rash involving face ,trunk and arms and cultures where growing MRSA. ID was consulted, dermatology was consulted. was treated with Vanco and Zosyn. And again discharged on clobetasol cream to the trunk and extremities and hydrocortisone cream to neck and head and face and antihistamines as needed. Dermatology thought it was impetiginized eczematous dermatitis with signs of id reaction and possibly infection with MRSA driving persistence of this process. He improved with the above regimen and was d ischarged on p.o. Augmentin and Doxy to complete the course and also the steroid creams as mentioned above. During those hospitalizations he also found to have a renal lesion on the CT scan and ultrasound with concern for renal malignancy. Followed up with urology and further evaluation with MRI was recommended. Currently patient comes back again with the rash in his bilateral lower extremities more on the right lower extremity and also right lower extremity swelling. Patient states this started again couple of weeks ago. Patient states since last hip surgery about a year ago having swelling in his right lower extremity but got worse lately. Is ambulating okay. Denies any pain. Has itching. He also feeling lumps and significant rash around his hip surgery site. He is concerned about rash coming back. The rash is somewhat better than last time but seems to getting worse again as per patient. Denies any fevers. Appetite is okay. Denies any abdominal pain. Normal bowel and bladder movements. Denies chest pain or shortness of breath. No headache. No swelling of the face currently. Vision is okay. No runny nose or sore throat. Hemodynamics are okay. Impetiginous eczematous dermatitis possible infection with MRSA possible cellulitis of the right lower extremity ER has empirically started on Vanco and Rocephin which will be continued will also order clobetasol cream ID consult dermatology consult when available monitor for response lumps around left hip region will follow the CT scan right lower extremity edema Doppler is negative Having since his hip surgery but got worse lately. will follow CT pelvis for any compressive lesions Left renal lesion follow-up with urology history of prostate cancer s/p surgery and radiation and and chemo about 20 years ago follow-up with urology follow PSA levels glaucoma continue eyedrops Hx of Hepatitic C Needs followup DVT prophylaxis Lovenox disposition medical floor full code. History of Present Illness Chief Complaint: Extensive skin rash Primary Care Provider: MARBELLA Yazmin 68-year-old male who is coming from local nursing home and with past medical history significant for kidney stones, eczema, inguinal hernia, hepatitis C virus, prostate cancer, arthritis, glaucoma comes with extensive skin rash involving the lower extremities. Patient was admitted in May of this year with extensive rash and lower extremity edema and seen by dermatology and thought to be generalized eruption due to ID reaction from impetiginization of his stasis dermatitis or adverse drug direction mostly from sulfa and he was treated with clobetasol cream to extremities and hydrocortisone cream to the face and ears and antihistamine as needed for itching. At that time cultures were negative. He was discharged on prednisone taper and Clobetasone and hydrocortisone creams.He was again admitted on June 24, 2023 for the face swelling and recurrence of rash involving face ,trunk and arms and cultures where growing MRSA. ID was consulted, dermatology was consulted. was treated with Vanco and Zosyn. And again discharged on clobetasol cream to the trunk and extremities and hydrocortisone cream to neck and head and face and antihistamines as needed. Dermatology thought it was impetiginized eczematous dermatitis with signs of id reaction and possibly infection with MRSA driving persistence of this process. He improved with the above regimen and was discharged on p.o. Augmentin and Doxy to complete the course and also the steroid creams as mentioned above. During those hospitalizations he also found to have a renal lesion on the CT scan and ultrasound with concern for renal malignancy. Followed up with urology and further evaluation with MRI was recommended. Currently patient comes back again with the rash in his bilateral lower extremities more on the right lower extremity and also right lower extremity swelling. Patient states this started again couple of weeks ago. Patient states since last hip surgery about a year ago having swelling in his right lower extremity but got worse lately. Is ambulating okay. Denies any pain. Has itching. He also feeling lumps and significant rash around his hip surgery site. He is concerned about rash coming back. The rash is somewhat better than last time but seems to getting worse again as per patient. Denies any fevers. Appetite is okay. Denies any abdominal pain. Normal bowel and bladder movements. Denies chest pain or shortness of breath. No headache. No swelling of the face currently. Vision is okay. No runny nose or sore throat. Hemodynamics are okay. Past medical history as mentioned above Past surgical history. Patient states he had surgery for prostate cancer 20 years ago. Had a surgery in right hip region. Social history. States he is quit smoking 4 years ago.used to smoke about 2 cigarettes daily. Denies any alcohol use. Family history. Has cancer in the family. Allergies Allergy/AdvReac Type Severity Reaction Status Date / Time bumetanide [From Bumex] Allergy Severe Unknown Verified 08/14/23 20:51 furosemide [From Lasix] Allergy Severe Unknown Verified 08/14/23 20:51 Sulfa (Sulfonamide Allergy Severe Unknown Verified 08/14/23 20:51 Antibiotics) clindamycin Allergy Intermediate ON SCI Verified 06/06/23 01:55 [facility] sulfamethoxazole Allergy Intermediate Rash Verified 08/14/23 20:51 [From Bactrim] trimethoprim [From Bactrim] Allergy Intermediate Rash Verified 08/14/23 20:51 Home Medications Medication Instructions Recorded Confirmed Type brimonidine 0.1 % eye drops 1 drp OPB BID 08/19/22 08/14/23 History (Alphagan P) dorzolamide 22.3 mg-timolol 6.8 1 drp OPB BID 08/19/22 08/14/23 History mg/mL eye drops (Cosopt) latanoprost 0.005 % eye drops 1 drp OPB HS 08/19/22 08/14/23 History aspirin 81 mg tablet,delayed 81 mg PO BID 09/06/22 08/14/23 History release diphenhydramine HCl 50 mg tablet 50 mg PO BID 08/14/23 08/14/23 History prednisone 10 mg tablet 10 mg PO DAILY 08/14/23 08/14/23 History soap 1 ea topical BID 08/14/23 08/14/23 History Past Med/Surg History Problem List (Updated 08/14/23 @ 23:41 by Rolando Dobbs MD) Impetiginous eczema Cellulitis of leg, right (Acute) Eczematous dermatitis Rash of face (Acute) Periorbital cellulitis of left eye (Acute) History of prostate cancer Renal lesion (Acute) Stasis dermatitis Rash (Acute) RAYMOND (acute kidney injury) (Acute) Adverse reaction to drug (Acute) S/P total right hip arthroplasty Osteoarthritis of right hip Encounter for pre-operative examination Medical History History of kidney stones Inguinal hernia HCV (hepatitis C virus) Prostate cancer no other details listed Constipation Arthritis Glaucoma (increased eye pressure) Surgical History Hx of hernia repair Social History Smoking Status: Former smoker Tobacco Type: Cigarettes Second Hand Exposure: No; Do You Dip or Chew Tobacco: No; Hx Alcohol Use: No Hx Substance Use: No Preferred Language: Hungarian Communication Ability: Effective Medical Billing Coder Required: No Beliefs That Will Affect Care: None Current Living Situation: Other Current Living Situation Comment: MARBELLA Arce Feels Safe at Home: Yes Safety Concerns: Feels Safe At This Time Assistive Devices: None Review of Systems Review of Systems: All systems reviewed & are unremarkable except as noted in HPI & below Physical Exam Physical Exam: General- Not in distress Head- atraumatic Eyes- PERRL. ENT- oropharynx clear Neck- supple, no JVD. Lungs- clear to auscultation no wheezing or crackles. Heart- regular rate and rhythm; no murmur, no gallop. Abdomen- normal bowel sounds, soft, nontender, no distension. Extremities- Right leg swollen. no erythema seen Neuro- alert, oriented PERRL, EOMI; no facial palsy; no dysarthria; moves extremities. Skin- extensive rash seen on lower extremities especially right lower leg with some areas of erythema. lumps palpable at right hip region. Results & Data Results & Data Vital Signs (Past 12 Hours) Vital Signs Temp Pulse Pulse Resp BP Pulse Ox O2 Del Method 08/14/23 22:15 73 20 111/78 98 08/14/23 22:00 72 15 131/84 99 08/14/23 21:45 82 27 H 118/80 100 08/14/23 21:30 77 18 120/80 98 08/14/23 21:00 74 18 129/111 H 100 08/14/23 20:45 69 14 132/84 99 Room Air 08/14/23 20:30 71 23 131/84 99 08/14/23 20:15 72 16 150/75 H 100 08/14/23 19:55 70 15 132/75 99 Room Air 08/14/23 18:35 77 08/14/23 18:13 36.6 C Diagnostic Findings Laboratory Results WBC 9.65 K/ul (4.8-10.8) 08/14/23 19:45 RBC 5.04 M/uL (4.70-6.10) 08/14/23 19:45 Hgb 15.8 g/dl (14.0-18.0) 08/14/23 19:45 Hct 47.1 % (42.0-52.0) 08/14/23 19:45 MCV 93.5 fL (80.0-100.0) 08/14/23 19:45 MCH 31.3 pg (25.0-34.0) 08/14/23 19:45 MCHC 33.5 g/dL (32.0-36.0) 08/14/23 19:45 RDW Std Deviation 44.4 fL (36.4-46.3) 08/14/23 19:45 RDW Coeff of Pablo 13.2 % (11.5-14.5) 08/14/23 19:45 Plt Count 409 K/uL (130-400) H 08/14/23 19:45 MPV 8.7 fL (9.4-12.4) L 08/14/23 19:45 Immature Gran % (Auto) 0.7 % 08/14/23 19:45 Neut % (Auto) 61.6 % 08/14/23 19:45 Lymph % (Auto) 15.6 % 08/14/23 19:45 Crisp % (Auto) 10.9 % 08/14/23 19:45 Eos % (Auto) 10.9 % 08/14/23 19:45 Baso % (Auto) 0.3 % 08/14/23 19:45 Neut # (Auto) 5.94 K/uL (1.40-6.50) 08/14/23 19:45 Lymph # (Auto) 1.51 K/uL (1.20-3.40) 08/14/23 19:45 Crisp # (Auto) 1.05 K/uL (0.11-0.59) H 08/14/23 19:45 Eos # (Auto) 1.05 K/uL (0.00-0.50) H 08/14/23 19:45 Baso # (Auto) 0.03 K/uL (0.00-0.20) 08/14/23 19:45 Immature Gran # (Auto) 0.07 K/uL (0.01-0.20) 08/14/23 19:45 PT 10.3 Seconds (9.0-12.0) 08/14/23 19:45 INR 0.9 (0.9-1.1) 08/14/23 19:45 APTT 26 Seconds (21-31) 08/14/23 19:45 PTT Ratio 1.0 08/14/23 19:45 Sodium 139 mmol/L (136-145) 08/14/23 19:45 Potassium 4.3 mmol/L (3.5-5.1) 08/14/23 19:45 Chloride 107 mmol/L (98-107) 08/14/23 19:45 Carbon Dioxide 27 mmol/L (21-32) 08/14/23 19:45 Anion Gap 5 (3-11) 08/14/23 19:45 BUN 19 mg/dl (6-23) 08/14/23 19:45 Creatinine 1.21 mg/dl (0.6-1.4) 08/14/23 19:45 Est Cr Clr Drug Dosing 65.0 ml/min 08/14/23 19:45 Est GFR ( Amer) 70.4 ml/min 08/14/23 19:45 Est GFR (Non-Af Amer) 60.7 ml/min 08/14/23 19:45 BUN/Creatinine Ratio 15.7 (10-20) 08/14/23 19:45 Glucose 93 mg/dl (70-99(Fasting)) 08/14/23 19:45 Lactate 1.3 mmol/L (0.4-2.0) 08/14/23 19:37 Calcium 9.3 mg/dl (8.6-10.3) 08/14/23 19:45 Magnesium 2.2 mg/dl (1.7-2.4) 08/14/23 19:45 Total Bilirubin 0.7 mg/dl (0.2-1.0) 08/14/23 19:45 Direct Bilirubin 0.1 mg/dl (0-0.2) 08/14/23 19:45 AST 17 U/L (13-39) 08/14/23 19:45 ALT 17 U/L (7-52) 08/14/23 19:45 Alkaline Phosphatase 99 U/L (34-104) 08/14/23 19:45 Troponin I High Sens 3.1 pg/ml (0-20) 08/14/23 19:45 C-Reactive Protein 3.02 mg/dl (0-0.5) H 08/14/23 19:45 Total Protein 7.6 gm/dl (6.0-8.3) 08/14/23 19:45 Albumin 3.8 gm/dl (3.4-5.0) 08/14/23 19:45 Procalcitonin 0.02 ng/ml (0-0.5) 08/14/23 19:45 Impressions Chest X-Ray 08/14/23 18:25 XR chest 1V portable CLINICAL HISTORY: Sepsis TECHNIQUE: Single frontal radiograph of the chest was obtained. Comparison: Comparison is made to chest radiograph 06/11/2023 FINDINGS: No lines and tubes are seen. The cardiomediastinal silhouette is stable. The lungs are clear. No evidence of pleural effusion or pneumothorax. IMPRESSION: No acute abnormalities and in particular no radiographic evidence of pneumonia. ACT 112: Negative or not required by law. Electronically signed by: Benitez Dennison M.D. 08/14/2023 8:13 PM Venous Doppler Study 08/14/23 18:25 US venous doppler LE BI CLINICAL HISTORY: swelling TECHNIQUE: Bilateral lower extremity real-time compression venous ultrasound with Color Doppler imaging. Utilizing real-time ultrasonic imaging multiple real time high-resolution ultrasonic images with compression and noncompression maneuvers of the deep venous system in addition to color doppler imaging were performed from the common femoral vein through the proximal calf veins. COMPARISON: Comparison is made to Doppler ultrasound 06/02/2023 FINDINGS/IMPRESSION: Currently there is normal compressibility of the deep venous system from the common femoral vein through the proximal calf veins. No superficial venous thrombosis is identified. ACT 112: Negative or not required by law. Electronically signed by: Benitez Dennison M.D. 08/14/2023 7:36 PM ECG Additional Comments: ECG. Normal sinus rhythm with rate of 78. No significant change was found. QTc 417. Code Status & VTE Plan VTE Prophylaxis Plan VTE Prophylaxis will be ordered: Yes
[2023-08-14] MEDS ORDERED: POLYETHYLENE (MIRALAX) 17 GM PACK PO PRN (23:52)
[2023-08-15 00:08] LABS: Appearance Urine Clear (Clear); Bacteria Urine Automated None Seen (None Seen); Bilirubin Urine Negative (Negative); Blood Urine Negative (Negative); Color Urine Yellow; Epithelial Cell Urine Auto 0-2 /hpf (0-2); Glucose Urine UA Negative (Negative); Ketones Urine Negative (Negative); Leukocyte Esterase Urine Negative (Negative); Nitrite Urine Negative (Negative); Protein Urine 3+ (Negative); Specific Gravity Urine 1.025 (1.000-1.030); Urobilinogen Urine Negative (Negative); WBC Urine Automated >50 /hpf (0-5); pH Urine 6.5 (4.5-7.5)
[2023-08-15] MEDS: ENOXAPARIN INJ 40 MG/0.4 ML SYR SQ SCH (00:54)
--- NOTE | 2023-08-15 04:02 | Pharmacy Report ---
Pharmacy PK ABX Note - Date of Service August 15, 2023 - Assessment and Plan Assessment * Mr is a 68 year old incarcerated M receiving vancomycin, ceftriaxone for treatment of RLE cellulitis, impetiginous eczema. * PMH includes eczema, HCV, prostate CA, glaucoma. Pt has had complicated recent history of skin rash/edema/infection. Hx MRSA * Pertinent microbiologic data includes: UCx, BCx pending * ID has been consulted. Plan Vancomycin * Loading dose: 1750 mg IV x 1 * Maintenance dose: 1500 mg IV every 18 hours * Regimen is predicted to achieve target AUC/CESAR of 400-600 mg/L.hr * Will evaluate a vancomycin level in 1-2 days. CTX 2gm IV q24h Pharmacy will continue to follow and will adjust dose/frequency as necessary. Thank you. Pharmacy has transitioned to AUC monitoring for vancomycin. AUC/CESAR is the preferred PK/PD target and is associated with decreased risk of nephrotoxicity compared to traditional trough targets.
[2023-08-15] MEDS: VANCOMYCIN HCL 1,500 MG in SODIUM CHLORIDE 0.9% 500 ML IV SCH (08:16)
[2023-08-15] MEDS: diphenhydrAMINE Capsule 25 MG CAP PO SCH (08:21)
[2023-08-15] MEDS: ASPIRIN 81 MG ECTAB PO SCH (08:21)
[2023-08-15] MEDS: DORZOLAMIDE/TIMOLOL 22.3/6.8MG/ML 10 ML BTL OPB SCH (08:22)
[2023-08-15] MEDS: CLOBETASOL PROPIONATE 0.05% CREAM 15 GM TUBE EXT SCH (08:22)
[2023-08-15] MEDS: predniSONE 10 MG TABLET PO SCH (08:22)
[2023-08-15 10:02] LABS: Creatinine Clr Calc Pharmacy 74.9 ml/min; Est GFR (African American) 83.5 ml/min; Est GFR (Non-African American) 72.1 ml/min
--- NOTE | 2023-08-15 10:32 | CT Scan Report ---
CT femur RT wo con, CT pelvis wo con CLINICAL HISTORY: lumps right thigh/hip region. hx of hip surgery TECHNIQUE: Multidetector row helical CT of the right femur and pelvis was performed without intraveno us contrast. Coronal and sagittal reformations were obtained. Automated dose lowering techniques and/ or adjustment according to patient size were utilized for this examination. CT DOSE: 1690.47 mGy.cm Comparison: Comparison is made to CT abdomen pelvis 06/10/2023 FINDINGS: Right hip arthroplasty is seen. No acute fracture or dislocation. There is degenerative change most p rominently about the knee. No joint effusion is seen. Soft tissue swelling is seen about the knee. M inimal fat stranding is seen in the lateral hip soft tissues. IMPRESSION: 1. No acute fractures. Minimal fat stranding in the lateral hip soft tissues without underlying abno rmality. 2. Soft tissue swelling about the knee, nonspecific. No drainable fluid collection is seen. 3. Right hip arthroplasty. ACT 112: Negative or not required by law. Electronically signed by: Benitez Dennison M.D. 08/15/2023 10:30 AM
--- NOTE | 2023-08-15 13:58 | Hospitalist Progress Note ---
Date of Service August 15, 2023 Assessment & Plan (1) Impetiginous eczema: Plan: Mr. León is a 68-year-old male who is coming [facility] and with past medical history significant for kidney stones, eczema, inguinal hernia, hepatitis C virus, prostate cancer, arthritis, glaucoma comes with extensive skin rash involving the lower extremities. Patient was admitted in May of this year with extensive rash and lower extremity edema and seen by dermatology and thought to be generalized eruption due to ID reaction from impetiginization of his stasis dermatitis or adverse drug direction mostly from sulfa and he was treated with clobetasol cream to extremities and hydrocortisone cream to the face and ears and antihistamine as needed for itching. At that time cultures were negative. He was discharged on prednisone taper and Clobetasone and hydrocortisone creams.He was again admitted on June 24, 2023 for the face swelling and recurrence of rash involving face ,trunk and arms and cultures where growing MRSA. ID was consulted, dermatology was consulted. was treated with Vanco and Zosyn. And again discharged on clobetasol cream to the trunk and extremities and hydrocortisone cream to neck and head and face and antihistamines as needed. Dermatology thought it was impetiginized eczematous dermatitis with signs of id reaction and possibly infection with MRSA driving persistence of this process. Patient was discharged on 07/04 and reported concerns over RLE blister that didn't quite resolve, but cultures negative on discharge. He now notes increased swelling, pain, and hyperpigmentation of the RLE with generalized pustular eruptions predominately on the RLE. He also noted lesions, annular in nature, along torso associated with dry skin. Denies fevers, chills. Reports discomfort walking. Pending ID and Derm con sultation. #Generalized pustular eruption #Purulent Cellulitis of RLE #MRSA + ?acute exanthematous pustulosis v pustular psoriasis? CT RLE and P without fluid collections or involvement of hip Dopplers negative for DVT Previously treat with Vanc/Zosyn, discharged on 07/04 with 7 days augmentin/doxycycline completed course of clobetasol 0.05% cream to areas of the trunk and extremities and hydrocortisone 2.5% cream to areas of the neck, head/face and ears twice daily x 2 weeks. Continue on Vancomycin given MRSA -MRSA precautions Prednisone taper complete 08/15 Stop CTX and broaden to Zosyn given extensive nature of cellulitis and swellings Resume clobestasol to trunk/extremities Wound care consult Will discuss with Dermatology in am ID consulted #Left renal lesion follow-up with urology, pending MRI given concern for #history of prostate cancer s/p surgery and radiation and and chemo about 20 years ago follow-up with urology follow PSA levels #glaucoma continue eyedrops #Hx of Hepatitic C Needs followup DVT prophylaxis Lovenox disposition medical floor full code. Admission and Anticipated Discharge Date Admission Date: August 14, 2023 Subjective Admitted overnight Denies any chest pain palpitations or other acute concerns Notes that when he went home in 07/04, he felt better initially--but still had a wound on his right LE. He states that he continued his regimen as directed, but soon a "million little spots" popped up all over his legs and more areas/patches on his back and abdomen. Physical Exam Constitutional: WD/WN, vitals as above Respiratory: normal respiratory effort, lungs clear to auscultation Cardiovascular: RRR Gastrointestinal (Abdomen): normal bowel sounds, soft, nontender, no hepatosplenomegaly Skin: RLE: diffuse non pitting edema, innumerous pustular eruptions over erythematous tissue/swelling, extending to just superior knee further annular like lesions with hyperpigmentation and swelling noted on BLE Hyperpigmented lesions on torso, no pustular eruption noted LLE with raise erythematous plaques and putular like appearance, minimal swelling noted Results & Data Results & Data Vital Signs (Past 12 Hours) Vital Signs Temp Pulse Resp BP Pulse Ox O2 Del Method 08/15/23 08:30 Room Air 08/15/23 07:24 36.6 C 69 18 124/76 99 Room Air Laboratory Results Short CBC 08/14/23 Range/Units 19:45 WBC 9.65 (4.8-10.8) K/ul Hgb 15.8 (14.0-18.0) g/dl Hct 47.1 (42.0-52.0) % Plt Count 409 H (130-400) K/uL BMP 08/14/23 08/15/23 19:45 09:25 Sodium 139 Potassium 4.3 Chloride 107 Carbon Dioxide 27 BUN 19 Creatinine 1.21 1.05 Glucose 93 Calcium 9.3 Liver Function 08/14/23 Range/Units 19:45 Total Bilirubin 0.7 (0.2-1.0) mg/dl Direct Bilirubin 0.1 (0-0.2) mg/dl AST 17 (13-39) U/L ALT 17 (7-52) U/L Alkaline Phosphatase 99 (34-104) U/L Albumin 3.8 (3.4-5.0) gm/dl Urine 08/14/23 Range/Units 23:28 Urine Color Yellow Urine Appearance Clear (Clear) Urine pH 6.5 (4.5-7.5) Ur Specific [place] 1.025 (1.000-1.030) Urine Protein 3+ H (Negative) Urine Glucose (UA) Negative (Negative) Diagnostic Findings Femur CT 08/14/23 23:52 CT femur RT wo con, CT pelvis wo con CLINICAL HISTORY: lumps right thigh/hip region. hx of hip surgery TECHNIQUE: Multidetector row helical CT of the right femur and pelvis was performed without intravenous contrast. Coronal and sagittal reformations were obtained. Automated dose lowering techniques and/or adjustment according to patient size were utilized for this examination. CT DOSE: 1690.47 mGy.cm Comparison: Comparison is made to CT abdomen pelvis 06/10/2023 FINDINGS: Right hip arthroplasty is seen. No acute fracture or dislocation. There is degenerative change most prominently about the knee. No joint effusion is seen. Soft tissue swelling is seen about the knee. Minimal fat stranding is seen in the lateral hip soft tissues. IMPRESSION: 1. No acute fractures. Minimal fat stranding in the lateral hip soft tissues without underlying abnormality. 2. Soft tissue swelling about the knee, nonspecific. No drainable fluid collection is seen. 3. Right hip arthroplasty. ACT 112: Negative or not required by law. Electronically signed by: Benitez Dennison M.D. 08/15/2023 10:[address] 08/14/23 23:52 CT femur RT wo con, CT pelvis wo con CLINICAL HISTORY: lumps right thigh/hip region. hx of hip surgery TECHNIQUE: Multidetector row helical CT of the right femur and pelvis was performed without intravenous contrast. Coronal and sagittal reformations were obtained. Automated dose lowering techniques and/or adjustment according to patient size were utilized for this examination. CT DOSE: 1690.47 mGy.cm Comparison: Comparison is made to CT abdomen pelvis 06/10/2023 FINDINGS: Right hip arthroplasty is seen. No acute fracture or dislocation. There is degenerative change most prominently about the knee. No joint effusion is seen. Soft tissue swelling is seen about the knee. Minimal fat stranding is seen in the lateral hip soft tissues. IMPRESSION: 1. No acute fractures. Minimal fat stranding in the lateral hip soft tissues without underlying abnormality. 2. Soft tissue swelling about the knee, nonspecific. No drainable fluid collection is seen. 3. Right hip arthroplasty. ACT 112: Negative or not required by law. Electronically signed by: Benitez Dennison M.D. 08/15/2023 10:30 AM Reviewed report Medications Administered Home Medications Medication Instructions Recorded Confirmed Last Taken brimonidine 0.1 % eye drops 1 drp OPB BID 08/19/22 08/14/23 06/05/23 (Alphagan P) dorzolamide 22.3 mg-timolol 6.8 1 drp OPB BID 08/19/22 08/14/23 06/05/23 mg/mL eye drops (Cosopt) latanoprost 0.005 % eye drops 1 drp OPB HS 08/19/22 08/14/23 04/27/23 aspirin 81 mg tablet,delayed 81 mg PO BID 09/06/22 08/14/23 04/21/23 release diphenhydramine HCl 50 mg tablet 50 mg PO BID 08/14/23 08/14/23 Unknown prednisone 10 mg tablet 10 mg PO DAILY 08/14/23 08/14/23 Unknown soap 1 ea topical BID 08/14/23 08/14/23 Unknown Active Medications Generic Name Dose Route Start Last Admin Trade Name Hudsonq PRN Reason Stop Dose Admin Aspirin 81 mg 08/15/23 09:00 08/15/23 08:21 Aspirin 81 Mg Ectab PO 09/14/23 08:59 81 mg BID MARJORIE Administration Clobetasol Propionate 1 appln 08/15/23 09:00 08/15/23 08:22 Clobetasol Propionate 0.05% Cream 15 Gm Tube EXT 09/14/23 08:59 1 appln BID MARJORIE Administration Diphenhydramine HCl 50 mg 08/15/23 09:00 08/15/23 08:21 Diphenhydramine Capsule 25 Mg Cap PO 09/14/23 08:59 50 mg BID MARJORIE Administration Dorzolamide/Timolol 1 drops 08/15/23 09:00 08/15/23 08:22 Dorzolamide/Timolol 22.3/6.8mg/Ml 10 Ml Btl OPB 09/14/23 08:59 1 drops BID MARJORIE Administration Enoxaparin Sodium 40 mg 08/14/23 23:52 08/15/23 00:54 Enoxaparin Inj 40 Mg/0.4 Ml Syr SQ 09/13/23 23:51 40 mg PM MARJORIE Administration Vancomycin HCl 1,500 mg/ 530 mls @ 200 mls/hr 08/15/23 08:00 08/15/23 10:55 Sodium Chloride IV 08/22/23 07:59 Infused Q18H MARJORIE Infusion Miscellaneous 1 each 08/15/23 08:00 08/15/23 08:23 Brimonidine [Alphagan P] 0.1%: Order Awaiting Action N/A 09/14/23 07:59 1 each QS MARJORIE Administration
[2023-08-15] MEDS: PIPER/TAZO 4.5g in D5W MINI-B 100 ML IV ONE (14:51)
[2023-08-15] MEDS: ACETAMINOPHEN 325 MG TAB PO PRN (15:19)
[2023-08-15] MEDS: PIPERACILLIN/TAZOBACTAM 4.5 GM in DEXTROSE 5% MINI-B 100 ML IV SCH (19:19)
[2023-08-15] MEDS: LATANOPROST 0.005% OP SOLN 2.5 ML BTL OPB SCH (20:01)
[2023-08-15] MEDS ORDERED: cefTRIAXone SODIUM 2,000 MG/50 ML BAG IV SCH (21:00)
--- NOTE | 2023-08-16 06:03 | Electrocardiogram Report ---
Test Reason : Blood Pressure : / mmHG Vent. Rate : 078 BPM Atrial Rate : 078 BPM P-R Int : 176 ms QRS Dur : 090 ms QT Int : 366 ms P-R-T Axes : 069 005 060 degrees QTc Int : 417 ms Normal sinus rhythm Normal ECG When compared with ECG of 24-JUN-2023 17:36, No significant change was found Confirmed by Lester Rao ([id number]) on 08/16/2023 6:03:00 AM Referred By: [facility] Confirmed By:Lester Rao
[2023-08-16 09:56] LABS: Hemoglobin 14.1 g/dl (14.0-18.0); Mean Corpuscular Hemoglobin 31.6 pg (25.0-34.0); Mean Corpuscular Hgb Conc 34.4 g/dL (32.0-36.0); Mean Corpuscular Volume 91.9 fL (80.0-100.0); Mean Platelet Volume 8.8 fL (9.4-12.4); Platelet Count 356 K/uL (130-400); RDW Coefficient of Variation 12.7 % (11.5-14.5); RDW Standard Deviation 42.7 fL (36.4-46.3); Red Blood Count 4.46 M/uL (4.70-6.10); White Blood Count 8.15 K/ul (4.8-10.8)
[2023-08-16 10:07] LABS: BUN Creatinine Ratio 13.1 (10-20); Calcium 8.3 mg/dl (8.6-10.3); Creatinine Clr Calc Pharmacy 73.5 ml/min; Est GFR (African American) 81.7 ml/min; Est GFR (Non-African American) 70.5 ml/min; Phosphorus 2.8 mg/dl (2.5-4.9); Potassium 3.6 mmol/L (3.5-5.1)
--- NOTE | 2023-08-16 11:09 | Hospitalist Progress Note ---
Date of Service August 16, 2023 Assessment & Plan (1) Impetiginous eczema: Plan: Mr. León is a 68-year-old male who is coming from local [facility] and with past medical history significant for kidney stones, eczema, inguinal hernia, hepatitis C virus, prostate cancer, arthritis, glaucoma comes with extensive skin rash involving the lower extremities. Patient was admitted in May of this year with extensive rash and lower extremity edema and seen by dermatology and thought to be generalized eruption due to ID reaction from impetiginization of his stasis dermatitis or adverse drug direction mostly from sulfa and he was treated with clobetasol cream to extremities and hydrocortisone cream to the face and ears and antihistamine as needed for itching. At that time cultures were negative. He was discharged on prednisone taper and Clobetasone and hydrocortisone creams.He was again admitted on June 24, 2023 for the face swelling and recurrence of rash involving face ,trunk and arms and cultures where growing MRSA. ID was consulted, dermatology was consulted. was treated with Vanco and Zosyn. And again discharged on clobetasol cream to the trunk and extremities and hydrocortisone cream to neck and head and face and antihistamines as needed. Dermatology thought it was impetiginized eczematous dermatitis with signs of id reaction and possibly infection with MRSA driving persistence of this process. Patient was discharged on 07/04 and reported concerns over RLE blister that didn't quite resolve, but cultures negative on discharge. He now notes increased swelling, pain, and hyperpigmentation of the RLE with generalized pustular eruptions predominately on the RLE. He also noted lesions, annular in nature, along torso associated with dry skin. Denies fevers, chills. Reports discomfort walking. Spoke to Dr. Laughlin, Derm, on phone this am. Reports concern for same process with bacterial infection. Also question of lymphedema/venous reflux exacerbating process. Spoke to Dr. Ulloa who suspects low likelihood of bacterial cellulitis given prompt improvement in symptoms and no systemic signs #Generalized pustular eruption *resolving #RLE edema #Purulent Cellulitis of RLE, questionable #MRSA + ?acute exanthematous pustulosis v pustular psoriasis? CT RLE and P without fluid collections or involvement of hip Dopplers negative for DVT Previously treat with Vanc/Zosyn, discharged on 05/27 with 7 days augment in/doxycycline completed course of clobetasol 0.05% cream to areas of the trunk and extremities and hydrocortisone 2.5% cream to areas of the neck, head/face and ears twice daily x 2 weeks. Continue on Vancomycin given MRSA -MRSA precautions Prednisone taper complete 08/15 Discontinue antibiotics -ID low suspicion for infection given notable resolution in 24 hours. -Hold abx for now Dermatology -No longer offering in person consults -Suspects same process as prior -Discussed, however low suspicion for psoriasis or other process -Suspects infection as driving source -Discontinue clobestasol Start Amlactin to face/neck/nonopen areas Arterial duplex given non-healing areas on feet #Left renal lesion follow-up with urology, pending MRI given concern for #history of prostate cancer s/p surgery and radiation and and chemo about 20 years ago follow-up with urology follow PSA levels #glaucoma continue eyedrops #Hx of Hepatitic C Needs followup DVT prophylaxis Lovenox disposition medical floor full code. Admission and Anticipated Discharge Date Admission Date: August 14, 2023 Subjective NAEO Reports subjective improvement in RLE with resolution of the "white pimples" over his leg. He denies any fevers or chills, reports frustration with hyperpigmentation and being admitted, but verbalizes understanding Reassured hip prothesis does not appear to be involved. Physical Exam Constitutional: WD/WN, vitals as above Respiratory: normal respiratory effort, lungs clear to auscultation Gastrointestinal (Abdomen): normal bowel sounds, soft, nontender, no hepatosplenomegaly Skin: reduced swelling of RLE, near improvement of pustular lesions Results & Data Results & Data Vital Signs (Past 12 Hours) Vital Signs Temp Pulse Resp BP Pulse Ox O2 Del Method 08/16/23 07:03 37.0 C 80 20 119/74 98 Room Air Laboratory Results Short CBC 08/16/23 Range/Units 09:29 WBC 8.15 (4.8-10.8) K/ul Hgb 14.1 (14.0-18.0) g/dl Hct 41.0 L (42.0-52.0) % Plt Count 356 (130-400) K/uL BMP 08/16/23 09:29 Sodium 138 Potassium 3.6 Chloride 108 H Carbon Dioxide 25 BUN 14 Creatinine 1.07 Glucose 140 H Calcium 8.3 L Medications Administered Home Medications Medication Instructions Recorded Confirmed Last Taken brimonidine 0.1 % eye drops 1 drp OPB BID 08/19/22 08/14/23 06/05/23 (Alphagan P) dorzolamide 22.3 mg-timolol 6.8 1 drp OPB BID 08/19/22 08/14/23 06/05/23 mg/mL eye drops (Cosopt) latanoprost 0.005 % eye drops 1 drp OPB HS 08/19/22 08/14/23 04/27/23 aspirin 81 mg tablet,delayed 81 mg PO BID 09/06/22 08/14/23 04/21/23 release diphenhydramine HCl 50 mg tablet 50 mg PO BID 08/14/23 08/14/23 Unknown prednisone 10 mg tablet 10 mg PO DAILY 08/14/23 08/14/23 Unknown soap 1 ea topical BID 08/14/23 08/14/23 Unknown Active Medications Generic Name Dose Route Start Last Admin Trade Name Ruthie PRN Reason Stop Dose Admin Acetaminophen 650 mg 08/14/23 23:52 08/15/23 15:19 Acetaminophen 325 Mg Tab PO 09/13/23 23:51 650 mg Q4H PRN Administration pain/fever Aspirin 81 mg 08/15/23 09:00 08/16/23 08:49 Aspirin 81 Mg Ectab PO 09/14/23 08:59 81 mg BID MARJORIE Administration Diphenhydramine HCl 50 mg 08/15/23 09:00 08/16/23 08:49 Diphenhydramine Capsule 25 Mg Cap PO 09/14/23 08:59 50 mg BID MARJORIE Administration Dorzolamide/Timolol 1 drops 08/15/23 09:00 08/16/23 08:50 Dorzolamide/Timolol 22.3/6.8mg/Ml 10 Ml Btl OPB 09/14/23 08:59 1 drops BID MARJORIE Administration Enoxaparin Sodium 40 mg 08/14/23 23:52 08/15/23 20:04 Enoxaparin Inj 40 Mg/0.4 Ml Syr SQ 09/13/23 23:51 40 mg PM MARJORIE Administration Piperacillin Sod/Tazobactam 100 mls @ 25 mls/hr 08/15/23 20:00 08/16/23 11:54 Sod 4.5 gm/ Dextrose IV 08/22/23 19:59 25 mls/hr Q8H MARJORIE Administration Protocol Latanoprost 1 drops 08/15/23 21:00 08/15/23 20:01 Latanoprost 0.005% Op Soln 2.5 Ml Btl OPB 09/14/23 20:59 1 drops HS MARJORIE Administration Miscellaneous 1 each 08/15/23 08:00 08/16/23 08:55 Brimonidine [Alphagan P] 0.1%: Order Awaiting Action N/A 09/14/23 07:59 Not Given QS MARJORIE
--- NOTE | 2023-08-16 13:26 | Pharmacy Report ---
Pharmacy PK ABX Note - Date of Service August 16, 2023 - Assessment and Plan Assessment 08/15 * Random vancomycin level came back at ~12.4 mcg/ml. Current vancomycin regimen estimates AUC/CESAR lower end of goal 400-600, will increase dosing today to target higher AUC/CESAR value and also to achieve therapeutic level sooner 08/13 * Mr León is a 68 year old incarcerated M receiving vancomycin, ceftriaxone for treatment of RLE cellulitis, impetiginous eczema. * PMH includes eczema, HCV, prostate CA, glaucoma. Pt has had complicated recent history of skin rash/edema/infection. Hx MRSA * Pertinent microbiologic data includes: UCx, BCx pending * ID has been consulted. Plan Vancomycin * Increased to 1250 mg iv q 12 hours * Plan to recheck level in next 2-3 days if continued Pharmacy will continue to follow and will adjust dose/frequency as necessary. Thank you. Pharmacy has transitioned to AUC monitoring for vancomycin. AUC/CESAR is the preferred PK/PD target and is associated with decreased risk of nephrotoxicity compared to traditional trough targets.
--- NOTE | 2023-08-16 14:30 | Infectious Disease Consult ---
Date of Service August 16, 2023 Telehealth Information I performed this visit using a real-time telehealth connection between my location and the patients location ([facility]). After connecting through interactive tele-video, patient was identified by name and date of and/or wristband check.Patient (or authorized healthcare account manager sales representative) was informed that this was a telemedicine visit and it was being conducted confidentially over secure lines. My office door was closed and no one else was present in the room with me.Patient (or authorized healthcare account manager sales representative) provided consent to proceed with the visit, expressed an understanding of privacy and security of the telemedicine visit, and gave permission to have a hospital account manager sales representative in the room in order to assist with the visit and to conduct portions of the visit, as needed. I informed the patient (or authorized healthcare account manager sales representative) that I reviewed their record and presented the opportunity for them to ask any questions regarding the visit today. The patient agreed to participate. Assessment & Plan (1) Impetiginous eczema: Plan: Assessment: R/o RLE cellulitis less likely Recurrent skin eruption Hx of allergy to sulfa (rash), clindamycin (?) Plan: - Hold both zosyn and vancomycin iv as there is no evidence of infection at this point based on clinical presentation: no tenderness, induration or warmth. - I have advised the patient to wait for the dematologist. - ID signing off. More than 50% of [id number] visit was spent counseling and coordinating care pertaining to the patient's infection diagnosis, additional work-up, and treatment option(s) as well as potential adverse events of the treatment. History of Present Illness History of Present Illness This is a 68 y/o AAM ([place]al[place] B) from a local residential, w/ hx of kidney stones, eczema, inguinal hernia, hep C, prostate CA, R hip replacement, and glaucoma, who presented to [facility] for extensive skin rash involving lower extremities. In May, he had extensive rash and LE edema which were presumably generalized eruption due to ID reaction from impetiginization of his stasis dermatitis or adverse drug direction mostly from sulfa: seen by dermatology and treated w/ prednisone taper and steroid cream. He was again hospitalized in 06/2023 for facial swelling and recurrent rash and treated w/ steroid and po abx (augmenin and doxycycline; superficial facial wound cx, 06/25/23, MRSA S to daptomycin, rifam, tetra, bact, vanco; R to clinda, oxa). He developed rash on b/l LE again, more on the RLE than LLE, and buttocks w/ itching. No fever. Currently on zosyn and vancomycin iv. The patient denies any pain/tenderness or warmth on the affected areas of skin. Denies f/c, n/v, abd pain, diarrhea, or respiratory symptoms. Leatha olivo [facility] was assisting during the encounter. Allergies Allergy/AdvReac Type Severity Reaction Status Date / Time bumetanide [From Bumex] Allergy Severe Unknown Verified 08/14/23 20:51 furosemide [From Lasix] Allergy Severe Unknown Verified 08/14/23 20:51 Sulfa (Sulfonamide Allergy Severe Unknown Verified 08/14/23 20:51 Antibiotics) clindamycin Allergy Intermediate ON SCI Verified 06/06/23 01:55 [facility] sulfamethoxazole Allergy Intermediate Rash Verified 08/14/23 20:51 [From Bactrim] trimethoprim [From Bactrim] Allergy Intermediate Rash Verified 08/14/23 20:51 Home Medications Medication Instructions Recorded Confirmed Type brimonidine 0.1 % eye drops 1 drp OPB BID 08/19/22 08/14/23 History (Alphagan P) dorzolamide 22.3 mg-timolol 6.8 1 drp OPB BID 08/19/22 08/14/23 History mg/mL eye drops (Cosopt) latanoprost 0.005 % eye drops 1 drp OPB HS 08/19/22 08/14/23 History aspirin 81 mg tablet,delayed 81 mg PO BID 09/06/22 08/14/23 History release diphenhydramine HCl 50 mg tablet 50 mg PO BID 08/14/23 08/14/23 History prednisone 10 mg tablet 10 mg PO DAILY 08/14/23 08/14/23 History soap 1 ea topical BID 08/14/23 08/14/23 History Patient History Medical History History of kidney stones Inguinal hernia HCV (hepatitis C virus) Prostate cancer no other details listed Constipation Arthritis Glaucoma (increased eye pressure) Surgical History Hx of hernia repair Social History Smoking Status: Former smoker Tobacco Type: Cigarettes Second Hand Exposure: No; Do You Dip or Chew Tobacco: No; Hx Alcohol Use: No Hx Substance Use: No Preferred Language: Omani Communication Ability: Effective [employer] Required: No Beliefs That Will Affect Care: None Current Living Situation: Other Current Living Situation Comment: [facility] Feels Safe at Home: Yes Safety Concerns: Feels Safe At This Time Assistive Devices: None Review of Systems as HPI and all others negative Physical Exam General: no acute distress Lungs: breathing comfortably on RA Skin: difficult to visualize the skin but no tenderness, warmth or induration noted per Leatha at bedside Results & Data Vital Signs (Past 12 Hours) Vital Signs Temp Pulse Resp BP Pulse Ox O2 Del Method 08/16/23 07:03 37.0 C 80 20 119/74 98 Room Air Laboratory Results Labs WBC 8.15K H 14.1 Plt 356K Cr 1.07 (CrCl 73.5) LFT unremarkable CRP 3.02 UA (08/13): neg LE, WBC >50 U cx (08/13): NGTD Blood cx (08/13): NGTD Doppler (08/13): Currently there is normal compressibility of the deep venous system from the c ommon femoral vein through the proximal calf veins. No superficial venous thrombosis is identified. CXR (08/13): No acute abnormalities and in particular no radiographic evidence of pneumonia. CT pelvis/femur (08/13): 1. No acute fractures. Minimal fat stranding in the lateral hip soft tissues without underlying abnormality. 2. Soft tissue swelling about the knee, nonspecific. No drainable fluid collection is seen. 3. Right hip arthroplasty.
[2023-08-16] MEDS ORDERED: AMMONIUM LACTATE 12% LOTION 225 GM BTL EXT PRN (15:08)
[2023-08-16] MEDS ORDERED: VANCOMYCIN HCL 1,250 MG in SODIUM CHLORIDE 0.9% 250 ML IV SCH (16:00)
--- NOTE | 2023-08-16 17:41 | Ultrasound Report ---
US arterial duplex right lower extremity CLINICAL HISTORY: Right lower extremity swelling, non healing wounds COMPARISON STUDY: None. FINDINGS: The right ankle-brachial was measured to be 1.18 and the left ankle brachial index was 1.26 . Normal biphasic to triphasic waveforms and velocities seen throughout the majority of the right low er extremity arterial system. There are scattered areas of monophasic waveforms seen within the dista l calf arteries consistent with diffuse atherosclerotic disease. No elevated peak systolic velocities to suggest hemodynamically significant stenosis. No evidence for arterial occlusion. IMPRESSION: No significant stenosis or occlusion within the right lower extremity arterial system. ACT 112: Negative or not required by law. Electronically signed by: Jesus Bravo M.D. 08/16/2023 5:39 PM
--- NOTE | 2023-08-17 07:24 | Hospitalist Progress Note ---
Date of Service August 17, 2023 Assessment & Plan (1) Impetiginous eczema: Plan: Mr. León is a 68-year-old male who is coming from local nursing home and with past medical history significant for kidney stones, eczema, inguinal hernia, hepatitis C virus, prostate cancer, arthritis, glaucoma admitted for evaluation of extensive skin rash involving the lower extremities. Patient was admitted in May of this year with extensive rash and lower extremity edema and seen by dermatology and thought to be generalized eruption due to ID reaction from impetiginization of his stasis dermatitis or adverse drug direction mostly from sulfa and he was treated with clobetasol cream to extremities and hydrocortisone cream to the face and ears and antihistamine as needed for itching. At that time cultures were negative. He was discharged on prednisone taper and Clobetasone and hydrocortisone creams and completed the courses. He was again admitted on June 24, 2023 for the face swelling and recurrence of rash involving face ,trunk and arms and cultures where growing MRSA. ID was consulted, dermatology was consulted. He treated with Vanco and Zosyn. Dermatology thought it was impetiginized eczematous dermatitis with signs of id reaction and possibly infection with MRSA driving persistence of this process. Patient was discharged on 07/04 and reported concerns over RLE blister that didn't quite resolve, but cultures negative on discharge. He now notes increased swelling, pain, and hyperpigmentation of the RLE with generalized pustular eruptions predominately on the RLE. He also noted lesions, annular in nature, along torso associated with dry skin. Denies fevers, chills. Reports discomfort walking. On 08/15-Spoke to Sumi Verdugo, on phone this am. Reports concern for same process with bacterial infection. Also question of lymphedema/venous reflux exacerbating process. On 08/15-Spoke to Dr. Ulloa who suspects low likelihood of bacterial cellulitis given prompt improvement in symptoms and no systemic signs Dopplers and arterial duplex without signs of stenosis or significant vascular disease. Given conflicting mental hygiene consultant recommendations, superficial wounds on lateral edge of foot, as well as notable improvement since admission with the only factor involved being antibiotics, start doxycycline and complete course for cellulitis. Awaiting wound care evaluation. #Generalized pustular eruption *resolving #IAcute dermatitis 2/2 ID reaction, ongoing per Derm #RLE edema *improving #MRSA + ?acute exanthematous pustulosis v pustular psoriasis? -[place] less likely from Derm CT RLE and P without fluid collections or involvement of hip Dopplers negative for DVT Previously treat with Vanc/Zosyn, discharged on 07/04 with 7 days Augmentin/doxycycline completed course of clobetasol 0.05% cream to areas of the trunk and extremities and hydrocortisone 2.5% cream to areas of the neck, head/face and ears twice daily x 2 weeks. Continue on Vancomycin given MRSA -MRSA precautions Prednisone taper complete 08/15 Discontinued IV antibiotics -ID low suspicion for infection given notable resolution in 24 hours. Given the conflicting reports from consultants on infection presence and resolution of symptoms with only IV abx involved this admission, will start doxycycline for MRSA [facility] -No longer offering in person consults -Suspects same process as prior -Discussed, however low suspicion for psoriasis or other process -Suspects infection as driving source -Discontinue clobestasol Encourage use of Amlactin Arterial duplex given non-healing areas on feet: No vascular disease Will ensure Derm follow up post-hospitalization #Left renal lesion follow-up with urology, pending MRI given concern for malignancy, renal function stable #history of prostate cancer s/p surgery and radiation and and chemo about 20 years ago follow-up with urology follow PSA levels OP #glaucoma continue eyedrops #Hx of Hepatitic C Needs followup DVT prophylaxis Lovenox disposition medical floor full code. Admission and Anticipated Discharge Date Admission Date: August 14, 2023 Subjective Notable improvement in all lesions and swelling in right leg with notable improvement. Patient denies fevers or chills, he also reports other lesions feel like "they are drying right up" Patient reports distress over skin manifestation and hindering quality of life; reports the dryness does lead to him scratching aggressively (?contributing to worsening of dermatitis/hyperpigmentation) Physical Exam Constitutional: WD/WN, vitals as above Respiratory: normal respiratory effort, lungs clear to auscultation Gastrointestinal (Abdomen): normal bowel sounds, soft, nontender, no hepatosplenomegaly Skin: RLE with diffuse xerosis, no further pustular like lesions, xerotic hyperpigmented plaques on hips Results & Data Results & Data Vital Signs (Past 12 Hours) Vital Signs Temp Pulse Resp BP Pulse Ox O2 Del Method 08/16/23 21:05 36.4 C L 68 16 120/79 99 Room Air Laboratory Results Short CBC 08/17/23 Range/Units 07:35 WBC 6.59 (4.8-10.8) K/ul Hgb 14.3 (14.0-18.0) g/dl Hct 42.0 (42.0-52.0) % Plt Count 353 (130-400) K/uL BMP 08/17/23 07:35 Sodium 138 Potassium 4.3 Chloride 107 Carbon Dioxide 26 BUN 18 Creatinine 1.14 Glucose 97 Calcium 8.9 Medications Administered Home Medications Medication Instructions Recorded Confirmed Last Taken brimonidine 0.1 % eye drops 1 drp OPB BID 08/19/22 08/14/23 06/05/23 (Alphagan P) dorzolamide 22.3 mg-timolol 6.8 1 drp OPB BID 08/19/22 08/14/23 06/05/23 mg/mL eye drops (Cosopt) latanoprost 0.005 % eye drops 1 drp OPB HS 08/19/22 08/14/23 04/27/23 aspirin 81 mg tablet,delayed 81 mg PO BID 09/06/22 08/14/23 04/21/23 release diphenhydramine HCl 50 mg tablet 50 mg PO BID 08/14/23 08/14/23 Unknown prednisone 10 mg tablet 10 mg PO DAILY 08/14/23 08/14/23 Unknown soap 1 ea topical BID 08/14/23 08/14/23 Unknown Active Medications Generic Name Dose Route Start Last Admin Trade Name Ruthie PRN Reason Stop Dose Admin Acetaminophen 650 mg 08/14/23 23:52 08/15/23 15:19 Acetaminophen 325 Mg Tab PO 09/13/23 23:51 650 mg Q4H PRN Administration pain/fever Aspirin 81 mg 08/15/23 09:00 08/17/23 08:40 Aspirin 81 Mg Ectab PO 09/14/23 08:59 81 mg BID MARJORIE Administration Diphenhydramine HCl 50 mg 08/15/23 09:00 08/17/23 08:40 Diphenhydramine Capsule 25 Mg Cap PO 09/14/23 08:59 50 mg BID MARJORIE Administration Dorzolamide/Timolol 1 drops 08/15/23 09:00 08/17/23 08:41 Dorzolamide/Timolol 22.3/6.8mg/Ml 10 Ml Btl OPB 09/14/23 08:59 1 drops BID MARJORIE Administration Enoxaparin Sodium 40 mg 08/14/23 23:52 08/16/23 20:17 Enoxaparin Inj 40 Mg/0.4 Ml Syr SQ 09/13/23 23:51 40 mg PM MARJORIE Administration Piperacillin Sod/Tazobactam 100 mls @ 25 mls/hr 08/15/23 20:00 08/16/23 15:06 Sod 4.5 gm/ Dextrose IV 08/22/23 19:59 Infused Q8H MARJORIE Infusion Protocol Latanoprost 1 drops 08/15/23 21:00 08/16/23 20:17 Latanoprost 0.005% Op Soln 2.5 Ml Btl OPB 09/14/23 20:59 1 drops HS MARJORIE Administration Miscellaneous 1 each 08/15/23 08:00 08/17/23 08:01 Brimonidine [Alphagan P] 0.1%: Order Awaiting Action N/A 09/14/23 07:59 Not Given QS MARJORIE
[2023-08-17 08:07] LABS: Hemoglobin 14.3 g/dl (14.0-18.0); Mean Corpuscular Hemoglobin 31.6 pg (25.0-34.0); Mean Corpuscular Volume 92.7 fL (80.0-100.0); Mean Platelet Volume 8.9 fL (9.4-12.4); Platelet Count 353 K/uL (130-400); RDW Coefficient of Variation 12.9 % (11.5-14.5); RDW Standard Deviation 43.8 fL (36.4-46.3); Red Blood Count 4.53 M/uL (4.70-6.10); White Blood Count 6.59 K/ul (4.8-10.8)
[2023-08-17 08:35] LABS: BUN Creatinine Ratio 15.8 (10-20); C Reactive Protein 1.19 mg/dl (0-0.5); Calcium 8.9 mg/dl (8.6-10.3); Creatinine Clr Calc Pharmacy 68.9 ml/min; Est GFR (African American) 75.6 ml/min; Est GFR (Non-African American) 65.3 ml/min; Phosphorus 3.3 mg/dl (2.5-4.9); Potassium 4.3 mmol/L (3.5-5.1)
[2023-08-17] MEDS: DOXYCYCLINE HYCLATE 100 MG CAP PO SCH (12:30)
[2023-08-17] MEDS: AMMONIUM LACTATE 12% LOTION 225 GM BTL EXT SCH (14:01)
[2023-08-17 14:21] VITALS: RESP 16
[2023-08-18 07:01] VITALS: BP 122/78; PULSE 69; TEMP 98.2; O2SAT 99
[2023-08-18 07:08] LABS: Hematocrit (blood only) 42.3 % (42.0-52.0); Hemoglobin 14.3 g/dl (14.0-18.0); Mean Corpuscular Hemoglobin 31.5 pg (25.0-34.0); Mean Corpuscular Hgb Conc 33.8 g/dL (32.0-36.0); Mean Corpuscular Volume 93.2 fL (80.0-100.0); Mean Platelet Volume 9.2 fL (9.4-12.4); Platelet Count 355 K/uL (130-400); RDW Standard Deviation 44.8 fL (36.4-46.3); Red Blood Count 4.54 M/uL (4.70-6.10); White Blood Count 5.87 K/ul (4.8-10.8)
[2023-08-18 07:11] LABS: Potassium 4.2 mmol/L (3.5-5.1)
[2023-08-18 07:17] LABS: BUN Creatinine Ratio 17.6 (10-20); Creatinine Clr Calc Pharmacy 72.8 ml/min; Est GFR (African American) 80.7 ml/min; Est GFR (Non-African American) 69.7 ml/min; Phosphorus 3.5 mg/dl (2.5-4.9)
--- NOTE | 2023-08-18 13:22 | Hospitalist Progress Note ---
Date of Service August 18, 2023 Assessment & Plan (1) Impetiginous eczema: Plan: Mr. León is a 68-year-old male who is [facility] and with past medical history significant for kidney stones, eczema, inguinal hernia, hepatitis C virus, prostate cancer, arthritis, glaucoma admitted for evaluation of extensive skin rash involving the lower extremities. Patient was admitted in May of this year with extensive rash and lower extremity edema and seen by dermatology and thought to be generalized eruption due to ID reaction from impetiginization of his stasis dermatitis or adverse drug direction mostly from sulfa and he was treated with clobetasol cream to extremities and hydrocortisone cream to the face and ears and antihistamine as needed for itching. At that time cultures were negative. He was discharged on prednisone taper and Clobetasone and hydrocortisone creams and completed the courses. He was again admitted on June 24, 2023 for the face swelling and recurrence of rash involving face ,trunk and arms and cultures where growing MRSA. ID was consulted, dermatology was consulted. He treated with Vanco and Zosyn. Dermatology thought it was impetiginized eczematous dermatitis with signs of id reaction and possibly infection with MRSA driving persistence of this process. As per prior provider Patient was discharged on 07/04 and reported concerns over RLE blister that didn't quite resolve, but cultures negative on discharge. He now notes increased swelling, pain, and hyperpigmentation of the RLE with generalized pustular eruptions predominately on the RLE. He also noted lesions, annular in nature, along torso associated with dry skin. Denies fevers, chills. Reports discomfort walking. On 08/15-Spoke to Sumi Verdugo, on phone this am. Reports concern for same process with bacterial infection. Also question of lymphedema/venous reflux exacerbating process. On 08/15-Spoke to Dr. Ulloa who suspects low likelihood of bacterial cellulitis given prompt improvement in symptoms and no systemic signs Dopplers and arterial duplex without signs of stenosis or significant vascular disease. Given conflicting clinical education consultant recommendations, superficial wounds on lateral edge of foot, as well as notable improvement since admission with the only factor involved being antibiotics, start doxycycline and complete course for cellulitis. Awaiting wound care evaluation. Generalized pustular eruption --resolving Acute Dermatitis due to ID reaction, ongoing per Derm RLE edema --Improving +MRSA Acute exanthematous pustulosis v pustular psoriasis? Vs Severe Eczema -Less likely per Dermatology Possible Cellulitis CT RLE and P without fluid collections or involvement of hip Dopplers negative for DVT Previously treat with Vanc/Zosyn, discharged on 07/04 with 7 days Augmentin/doxycycline Completed course of clobetasol 0.05% cream to areas of the trunk and extremities and hydrocortisone 2.5% cream to areas of the neck, head/face and ears twice daily x 2 weeks. Continue on Vancomycin given MRSA >>>Transition to Doxy Prednisone taper complete 08/15 Discontinued IV antibiotics:ID low suspicion for infection given notable resolution in 24 hours. Given the conflicting reports from consultants on infection presence and resolution of symptoms with only IV abx involved this admission, will start doxycycline for MRSA [facility] -No longer offering in person consults -Suspects same process as prior -Discussed, however low suspicion for psoriasis or other process -Suspects infection as driving source -Discontinue clobestasol Encourage use of Amlactin Arterial duplex given non-healing areas on feet: No vascular disease Clinically improving Add HCTZ as needed for leg edema Needs follow-up with dermatology as outpatient for possible biopsy to confirm diagnosis Left renal lesion Follow-up with urology as outpatient H/O Prostate cancer s/p surgery and radiation and and chemo about 20 years ago follow-up with urology follow PSA levels OP Glaucoma continue eyedrops Hx of Hepatitic C Needs followup DVT prophylaxis Lovenox SQ Code Status full code Admission and Anticipated Discharge Date Admission Date: August 14, 2023 Subjective Patient is seen and examined at bedside Right leg lesions much improved No new complaints Still has some itchy skin Denies any chest pain, dyspnea, nausea, vomiting, abdominal pain No other complaints Review of Systems Review of Systems: All systems reviewed & are unremarkable except as noted in Subjective Physical Exam Physical Exam: Physical Exam: Vitals signs as noted above General Appearance:Moderately built and nourished, no apparent distress Head: normocephalic, Atraumatic Eyes: normal inspection, EOMI Neck: supple, Trachea midline Respiratory/Chest: Normal breath sounds, CTA, No accessory muscle use Cardiovascular: S1, S2, No murmur Abdomen/GI:Soft, Non tender, Bowel sounds present Extremities/Musculoskeletal:normal inspection, extensive right lower extremity, right upper extremity cirrhosis, hyperpigmented plaques Neurologic/Psych:AAOX3, grossly no focal neurological deficits Skin: normal color, warm Results & Data Results & Data Vital Signs (Past 12 Hours) Vital Signs Temp Pulse Resp BP Pulse Ox O2 Del Method 08/18/23 07:00 36.8 C 69 16 122/78 99 Room Air Laboratory Results Short CBC 08/18/23 Range/Units 06:16 WBC 5.87 (4.8-10.8) K/ul Hgb 14.3 (14.0-18.0) g/dl Hct 42.3 (42.0-52.0) % Plt Count 355 (130-400) K/uL [facility] 08/18/23 06:16 Sodium 138 Potassium 4.2 Chloride 107 Carbon Dioxide 25 BUN 19 Creatinine 1.08 Glucose 105 H Calcium 9.0
[2023-08-18] MEDS: hydroCHLOROthiazide 25 MG TAB PO ONE (13:34)
--- NOTE | 2023-08-18 13:35 | Discharge Summary ---
Date of Service August 18, 2023 Admission HPI Per Admitting Provider 68-year-old male who is coming from local long term and with past medical history significant for kidney stones, eczema, inguinal hernia, hepatitis C virus, prostate cancer, arthritis, glaucoma comes with extensive skin rash involving the lower extremities. Patient was admitted in May of this year with extensive rash and lower extremity edema and seen by dermatology and thought to be generalized eruption due to ID reaction from impetiginization of his stasis dermatitis or adverse drug direction mostly from sulfa and he was treated with clobetasol cream to extremities and hydrocortisone cream to the face and ears and antihistamine as needed for itching. At that time cultures were negative. He was discharged on prednisone taper and Clobetasone and hydrocortisone creams.He was again admitted on June 24, 2023 for the face swelling and recurrence of rash involving face ,trunk and arms and cultures where growing MRSA. ID was consulted, dermatology was consulted. was treated with Vanco and Zosyn. And again discharged on clobetasol cream to the trunk and extremities and hydrocortisone cream to neck and head and face and antihistamines as needed. Dermatology thought it was impetiginized eczematous dermatitis with signs of id reaction and possibly infection with MRSA driving persistence of this process. He improved with the above regimen and was discharged on p.o. Augmentin and Doxy to complete the course and also the steroid creams as mentioned above. During those hospitalizations he also found to have a renal lesion on the CT scan and ultrasound with concern for renal malignancy. Followed up with urology and further evaluation with MRI was recommended. Currently patient comes back again with the rash in his bilateral lower extremities more on the right lower extremity and also right lower extremity swelling. Patient states this started again couple of weeks ago. Patient states since last hip surgery about a year ago having swelling in his right lower extremity but got worse lately. Is ambulating okay. Denies any pain. Has itching. He also feeling lumps and significant rash around his hip surgery site. He is concerned about rash coming back. The rash is somewhat better than last time but seems to getting worse again as per patient. Denies any fevers. Appetite is okay. Denies any abdominal pain. Normal bowel and bladder movements. Denies chest pain or shortness of breath. No headache. No swelling of the face currently. Vision is okay. No runny nose or sore throat. Hemodynamics are okay. Past medical history as mentioned above Past surgical history. Patient states he had surgery for prostate cancer 20 years ago. Had a surgery in right hip region. Social history. States he is quit smoking 4 years ago.used to smoke about 2 cigarettes daily. Denies any alcohol use. Family history. Has cancer in the family. Admission Exam Per Admitting Provider General- Not in distress Head- atraumatic Eyes- PERRL. ENT- oropharynx clear Neck- supple, no JVD. Lungs- clear to auscultation no wheezing or crackles. Heart- regular rate and rhythm; no murmur, no gallop. Abdomen- normal bowel sounds, soft, nontender, no distension. Extremities- Right leg swollen. no erythema seen Neuro- alert, oriented PERRL, EOMI; no facial palsy; no dysarthria; moves ex tremities. Skin- extensive rash seen on lower extremities especially right lower leg with some areas of erythema. lumps palpable at right hip region. Principal Diagnosis Impetiginous eczema/Dermatitis Left renal lesion Discharge Data Allergies Allergy/AdvReac Type Severity Reaction Status Date / Time bumetanide [From Bumex] Allergy Severe Unknown Verified 08/14/23 20:51 furosemide [From Lasix] Allergy Severe Unknown Verified 08/14/23 20:51 Sulfa (Sulfonamide Allergy Severe Unknown Verified 08/14/23 20:51 Antibiotics) clindamycin Allergy Intermediate ON SCI Verified 06/06/23 01:55 [facility] sulfamethoxazole Allergy Intermediate Rash Verified 08/14/23 20:51 [From Bactrim] trimethoprim [From Bactrim] Allergy Intermediate Rash Verified 08/14/23 20:51 Consultations 08/14/23 20:39 ED Decision to Admit Stat 08/15/23 08:00 Consult Infectious Diseases Routine Procedures Performed Laboratory Results WBC 5.87 K/ul (4.8-10.8) 08/18/23 06:16 RBC 4.54 M/uL (4.70-6.10) L 08/18/23 06:16 Hgb 14.3 g/dl (14.0-18.0) 08/18/23 06:16 Hct 42.3 % (42.0-52.0) 08/18/23 06:16 MCV 93.2 fL (80.0-100.0) 08/18/23 06:16 MCH 31.5 pg (25.0-34.0) 08/18/23 06:16 MCHC 33.8 g/dL (32.0-36.0) 08/18/23 06:16 RDW Std Deviation 44.8 fL (36.4-46.3) 08/18/23 06:16 RDW Coeff of Pablo 13.0 % (11.5-14.5) 08/18/23 06:16 Plt Count 355 K/uL (130-400) 08/18/23 06:16 MPV 9.2 fL (9.4-12.4) L 08/18/23 06:16 Immature Gran % (Auto) 0.7 % 08/14/23 19:45 Neut % (Auto) 61.6 % 08/14/23 19:45 Lymph % (Auto) 15.6 % 08/14/23 19:45 [place] % (Auto) 10.9 % 08/14/23 19:45 Eos % (Auto) 10.9 % 08/14/23 19:45 Baso % (Auto) 0.3 % 08/14/23 19:45 Neut # (Auto) 5.94 K/uL (1.40-6.50) 08/14/23 19:45 Lymph # (Auto) 1.51 K/uL (1.20-3.40) 08/14/23 19:45 [place] # (Auto) 1.05 K/uL (0.11-0.59) H 08/14/23 19:45 Eos # (Auto) 1.05 K/uL (0.00-0.50) H 08/14/23 19:45 Baso # (Auto) 0.03 K/uL (0.00-0.20) 08/14/23 19:45 Immature Gran # (Auto) 0.07 K/uL (0.01-0.20) 08/14/23 19:45 ESR 32 mm/hr (0-20) H 08/17/23 07:35 PT 10.3 Seconds (9.0-12.0) 08/14/23 19:45 INR 0.9 (0.9-1.1) 08/14/23 19:45 APTT 26 Seconds (21-31) 08/14/23 19:45 PTT Ratio 1.0 08/14/23 19:45 Sodium 138 mmol/L (136-145) 08/18/23 06:16 Potassium 4.2 mmol/L (3.5-5.1) 08/18/23 06:16 Chloride 107 mmol/L (98-107) 08/18/23 06:16 Carbon Dioxide 25 mmol/L (21-32) 08/18/23 06:16 Anion Gap 6 (3-11) 08/18/23 06:16 BUN 19 mg/dl (6-23) 08/18/23 06:16 Creatinine 1.08 mg/dl (0.6-1.4) 08/18/23 06:16 Est Cr Clr Drug Dosing 72.8 ml/min 08/18/23 06:16 Est GFR ( Amer) 80.7 ml/min 08/18/23 06:16 Est GFR (Non-Af Amer) 69.7 ml/min 08/18/23 06:16 BUN/Creatinine Ratio 17.6 (10-20) 08/18/23 06:16 Glucose 105 mg/dl (70-99(Fasting)) H 08/18/23 06:16 Lactate 1.3 mmol/L (0.4-2.0) 08/14/23 19:37 Calcium 9.0 mg/dl (8.6-10.3) 08/18/23 06:16 Phosphorus 3.5 mg/dl (2.5-4.9) 08/18/23 06:16 Magnesium 2.0 mg/dl (1.7-2.4) 08/18/23 06:16 Total Bilirubin 0.7 mg/dl (0.2-1.0) 08/14/23 19:45 Direct Bilirubin 0.1 mg/dl (0-0.2) 08/14/23 19:45 AST 17 U/L (13-39) 08/14/23 19:45 ALT 17 U/L (7-52) 08/14/23 19:45 Alkaline Phosphatase 99 U/L (34-104) 08/14/23 19:45 Troponin I High Sens 3.1 pg/ml (0-20) 08/14/23 19:45 C-Reactive Protein 1.19 mg/dl (0-0.5) H 08/17/23 07:35 Total Protein 7.6 gm/dl (6.0-8.3) 08/14/23 19:45 Albumin 3.8 gm/dl (3.4-5.0) 08/14/23 19:45 Procalcitonin 0.02 ng/ml (0-0.5) 08/14/23 19:45 Urine Color Yellow 08/14/23 23:28 Urine Appearance Clear (Clear) 08/14/23 23:28 Urine pH 6.5 (4.5-7.5) 08/14/23 23:28 Ur Specific [place] 1.025 (1.000-1.030) 08/14/23 23:28 Urine Protein 3+ (Negative) H 08/14/23 23:28 Urine Glucose (UA) Negative (Negative) 08/14/23 23:28 Urine Ketones Negative (Negative) 08/14/23 23:28 Urine Blood Negative (Negative) 08/14/23 23:28 Urine Nitrite Negative (Negative) 08/14/23 23:28 Urine Bilirubin Negative (Negative) 08/14/23 23:28 Urine Urobilinogen Negative (Negative) 08/14/23 23:28 Ur Leukocyte Esterase Negative (Negative) 08/14/23 23:28 Urine WBC (Auto) >50 /hpf (0-5) H 08/14/23 23:28 Urine RBC (Auto) 3-5 /hpf (0-2) H 08/14/23 23:28 U Hyaline Cast (Auto) 3-5 /lpf (0-2) H 08/14/23 23:28 U Epithel Cells (Auto) 0-2 /hpf (0-2) 08/14/23 23:28 Urine Bacteria (Auto) None Seen (None Seen) 08/14/23 23:28 Random Vancomycin 12.4 mcg/ml (10-20) 08/16/23 12:17 Impressions Chest X-Ray 08/14/23 18:25 XR chest 1V portable CLINICAL HISTORY: Sepsis TECHNIQUE: Single frontal radiograph of the chest was obtained. Comparison: Comparison is made to chest radiograph 06/11/2023 FINDINGS: No lines and tubes are seen. The cardiomediastinal silhouette is stable. The lungs are clear. No evidence of pleural effusion or pneumothorax. IMPRESSION: No acute abnormalities and in particular no radiographic evidence of pneumonia. ACT 112: Negative or not required by law. Electronically signed by: Benitez Dennison M.D. 08/14/2023 8:13 PM Venous Doppler Study 08/14/23 18:25 US venous doppler LE BI CLINICAL HISTORY: swelling TECHNIQUE: Bilateral lower extremity real-time compression venous ultrasound with Color Doppler imaging. Utilizing real-time ultrasonic imaging multiple real time high-resolution ultrasonic images with compression and noncompression maneuvers of the deep venous system in addition to color doppler imaging were performed from the common femoral vein through the proximal calf veins. COMPARISON: Comparison is made to Doppler ultrasound 06/02/2023 FINDINGS/IMPRESSION: Currently there is normal compressibility of the deep venous system from the common femoral vein through the proximal calf veins. No superficial venous thrombosis is identified. ACT 112: Negative or not required by law. Electronically signed by: Benitez Dennison M.D. 08/14/2023 7:[address] 08/14/23 23:52 CT femur RT wo con, CT pelvis wo con CLINICAL HISTORY: lumps right thigh/hip region. hx of hip surgery TECHNIQUE: Multidetector row helical CT of the right femur and pelvis was performed without intravenous contrast. Coronal and sagittal reformations were obtained. Automated dose lowering techniques and/or adjustment according to patient size were utilized for this examination. CT DOSE: 1690.47 mGy.cm Comparison: Comparison is made to CT abdomen pelvis 06/10/2023 FINDINGS: Right hip arthroplasty is seen. No acute fracture or dislocation. There is degenerative change most prominently about the knee. No joint effusion is seen. Soft tissue swelling is seen about the knee. Minimal fat stranding is seen in the lateral hip soft tissues. IMPRESSION: 1. No acute fractures. Minimal fat stranding in the lateral hip soft tissues without underlying abnormality. 2. Soft tissue swelling about the knee, nonspecific. No drainable fluid collection is seen. 3. Right hip arthroplasty. ACT 112: Negative or not required by law. Electronically signed by: Benitez Dennison M.D. 08/15/2023 10:[address] 08/14/23 23:52 CT femur RT wo con, CT pelvis wo con CLINICAL HISTORY: lumps right thigh/hip region. hx of hip surgery TECHNIQUE: Multidetector row helical CT of the right femur and pelvis was performed without intravenous contrast. Coronal and sagittal reformations were obtained. Automated dose lowering techniques and/or adjustment according to patient size were utilized for this examination. CT DOSE: 1690.47 mGy.cm Comparison: Comparison is made to CT abdomen pelvis 06/10/2023 FINDINGS: Right hip arthroplasty is seen. No acute fracture or dislocation. There is degenerative change most prominently about the knee. No joint effusion is seen. Soft tissue swelling is seen about the knee. Minimal fat stranding is seen in the lateral hip soft tissues. IMPRESSION: 1. No acute fractures. Minimal fat stranding in the lateral hip soft tissues without underlying abnormality. 2. Soft tissue swelling about the knee, nonspecific. No drainable fluid collection is seen. 3. Right hip arthroplasty. ACT 112: Negative or not required by law. Electronically signed by: Benitez Dennison M.D. 08/15/2023 10:30 AM Duplex Scan Lower Extremity Artery 08/16/23 15:08 US arterial duplex right lower extremity CLINICAL HISTORY: Right lower extremity swelling, non healing wounds COMPARISON STUDY: None. FINDINGS: The right ankle-brachial was measured to be 1.18 and the left ankle brachial index was 1.26. Normal biphasic to triphasic waveforms and velocities seen throughout the majority of the right lower extremity arterial system. There are scattered areas of monophasic waveforms seen within the distal calf arteries consistent with diffuse atherosclerotic disease. No elevated peak systolic velocities to suggest hemodynamically significant stenosis. No evidence for arterial occlusion. IMPRESSION: No significant stenosis or occlusion within the right lower extremity arterial system. ACT 112: Negative or not required by law. Electronically signed by: Jesus Bravo M.D. 08/16/2023 5:39 PM Ordered Studies 08/14/23 18:25 US venous doppler LE BI Stat 08/14/23 23:52 CT leg [CT femur RT wo con] Routine CT pelvis wo con Routine 08/16/23 15:08 US duplex leg [US arterial duplex LE RT] Routine Hospital Course (1) Impetiginous eczema: Mr. León is a 68-year-old male who is coming from local long term and with past medical history significant for kidney stones, eczema, inguinal hernia, hepatitis C virus, prostate cancer, arthritis, glaucoma admitted for evaluation of extensive skin rash involving the lower extremities. Patient was admitted in May of this year with extensive rash and lower extremity edema and seen by dermatology and thought to be generalized eruption due to ID reaction from impetiginization of his stasis dermatitis or adverse drug direction mostly from sulfa and he was treated with clobetasol cream to extremities and hydrocortisone cream to the face and ears and antihistamine as needed for itching. At that time cultures were negative. He was discharged on prednisone taper and Clobetasone and hydrocortisone creams and completed the courses. He was again admitted on June 24, 2023 for the face swelling and recurrence of rash involving face ,trunk and arms and cultures where growing MRSA. ID was consulted, dermatology was consulted. He treated with Vanco and Zosyn. Dermatology thought it was impetiginized eczematous dermatitis with signs of id reaction and possibly infection with MRSA driving persistence of this process. As per prior provider Patient was discharged on 07/04 and reported concerns over RLE blister that didn't quite resolve, but cultures negative on discharge. He now notes increased swelling, pain, and hyperpigmentation of the RLE with generalized pustular eruptions predominately on the RLE. He also noted lesions, annular in nature, along torso associated with dry skin. Denies fevers, chills. Reports discomfort walking. On 08/15-Spoke to Dr. Laughlin Derm, on phone this am. Reports concern for same process with bacterial infection. Also question of lymphedema/venous reflux exacerbating process. On 08/15-Spoke to Dr. Ulloa who suspects low likelihood of bacterial cellulitis given prompt improvement in symptoms and no systemic signs Dopplers and arterial duplex without signs of stenosis or significant vascular disease. Given conflicting wig sales consultant recommendations, superficial wounds on lateral edge of foot, as well as notable improvement since admission with the only factor involved being antibiotics, start doxycycline and complete course for cellulitis. Awaiting wound care evaluation. Generalized pustular eruption --resolving Acute Dermatitis due to ID reaction, ongoing per Derm RLE edema --Improving +MRSA Acute exanthematous pustulosis v pustular psoriasis? Vs Severe Eczema -Less likely per Dermatology Possible Cellulitis CT RLE and P without fluid collections or involvement of hip Dopplers negative for DVT Previously treat with Vanc/Zosyn, discharged on 07/04 with 7 days Augmentin/doxycycline Completed course of clobetasol 0.05% cream to areas of the trunk and extremities and hydrocortisone 2.5% cream to areas of the neck, head/face and ears twice daily x 2 weeks. Continue on Vancomycin given MRSA >>>Transition to Doxy Prednisone taper complete 08/15 Discontinued IV antibiotics:ID low suspicion for infection given notable resolution in 24 hours. Given the conflicting reports from consultants on infection presence and resolution of symptoms with only IV abx involved this admission, will start doxycycline for MRSA [facility] D[facility]atology -No longer offering in person consults -Suspects same process as prior -Discussed, however low suspicion for psoriasis or other process -Suspects infection as driving source -Discontinue clobestasol Encourage use of Amlactin Arterial duplex given non-healing areas on feet: No vascular disease Clinically improving Add HCTZ as needed for leg edema Needs follow-up with dermatology as outpatient for possible biopsy to confirm diagnosis Left renal lesion Follow-up with urology as outpatient H/O Prostate cancer s/p surgery and radiation and and chemo about 20 years ago follow-up with urology follow PSA levels OP Glaucoma continue eyedrops Hx of Hepatitic C Needs followup DVT prophylaxis Lovenox SQ Code Status full code Total Time Total Time Spent Total Time Spent (In Minutes): 52 minutes Discharge Plan Discharge Items [facility] Reason For Visit: EXTENSIVE SKIN RASH Discharge Diagnosis: Impetiginous eczema/Dermatitis Left renal lesion Activity: Per Instructions section Exercise/Sports: Gradually increase as tolerated Non-emergency contact: Primary Care Provider and Specialist Call non-emergency contact if: you have any medication questions, your symptoms worsen, your pain is concerning for you, you have a fever, your wound has increased redness, your wound has increased drainage and your wound pain has increased Follow-up/Referrals: Yazmin TYSON [Primary Care Provider] - Diet: Heart Healthy Addtl Attending Provider Instructions: Follow-[facility] with your physician [facility] Follow-up with your restaurant expeditor for possible skin biopsy to confirm diagnosis as outpatient Follow-up with your urologist for further evaluation of left kidney lesion --Complete the antibiotic course doxycycline as prescribed for 6 more days -- Continue ammonium lactate 12% lotion at the site of dry skin 2 times a day as recommended. -- You can use hydrochlorothiazide every other day as needed for leg edema (given intolerance to Lasix, Bumex per record) Seek immediate medical attention if your symptoms reoccur or worsen Please take all medications as instructed on discharge list below. Please call if you have any questions or problems. You can reach a [facility] hospitalist on duty at [facility] 24 hours a day by calling [phone] Pending Studies at Discharge: No Stand-Alone Forms: My [facility] Skilled Items Patient informed of condition?: Yes Discharge Level of Care: Other Communicable Disease: No Discharge Prognosis: Stable Lines: None Urinary Catheter: No Medications and DC Order Prescriptions: New doxycycline hyclate 100 mg Capsule 100 mg PO BID Qty: 13 0RF Lac-Hydrin Five 5 % Lotion 1 applic EXT BID Qty: 226 0RF hydrochlorothiazide 12.5 mg tablet 12.5 mg PO Q OTHER DAY PRN (Reason: Leg edema) Qty: 30 0RF Continued latanoprost 0.005 % Drops 1 drp OPB HS dorzolamide-timolol [Cosopt] 22.3-6.8 mg/mL Drops 1 drp OPB BID brimonidine [Alphagan P] 0.1 % Drops 1 drp OPB BID Rx Instructions: administer approximately 8 hours apart aspirin 81 mg Tablet,Delayed Release (Dr/Ec) 81 mg PO BID diphenhydramine HCl 50 mg Tablet 50 mg PO BID Baby Shampoo Shampoo 1 ea TOPICAL BID Rx Instructions: shampoo hair twie daily for head and body Discontinued prednisone 10 mg Tablet 10 mg PO DAILY Rx Instructions: see taper instructions ...last dose 08/16/23 Discharge Orders: Discharge Order (Routine); Ordered 08/18/23 Ordered By: Truong Warren Admission Data Admit Date/Time: 08/14/23 22:40 Attending Provider: Truong Warren Admit Provider: Rolando Dobbs Primary Care Provider: Yazmin TYSON Other Providers: Rolando Dobbs; Mickey Villalobos; Johanny Ulloa; Derick Simmons I.; Sergo Hackett II; Sandra Stewart; Benny Rivers; Ronn Carrasco; Gabriela Richard
== END 2023-08-18 15:05 | DRG 603 ==
LOC: ED 18:04 → 3N 22:40 → SUATTDRO 22:40 → 3N 23:02